=== PATIENT | male | born 1960 | race Caucasian/White ===

== ENCOUNTER 2018-02-09 10:15 | Emergency (ER) | payer MEDICARE, OTHER ==
--- NOTE | 2018-02-09 12:35 | RAD REPORT ---
EXAM DESCRIPTION: US - Extremity Venous Uni Ltd - 02/09/2018 12:27 pm CLINICAL HISTORY: Swelling;Pain Leg swelling and edema. COMPARISON: No comparisons FINDINGS: Left lower extremity venous system was interrogated with Doppler technique. Normal flow, c ompressibility and augmentation was noted. There is no DVT present. IMPRESSION: No evidence of left lower extremity deep venous thrombosis.
--- NOTE | 2018-02-09 12:45 | RAD REPORT ---
EXAM DESCRIPTION: RAD - Hip Left 2 View - 02/09/2018 12:39 pm CLINICAL HISTORY: PAIN Radiculopathy. COMPARISON: No comparisons FINDINGS: Mild left hip arthritic changes are present. No fracture, dislocation or AVN. IMPRESSION: Mild left hip osteoarthritis.
--- NOTE | 2018-02-09 13:04 | EDPHYS ---
Physician Documentation [facility] Name: Eliu Schuler Age: 57 yrs Sex: Male : 1960 Arrival Date: 02/09/2018 Time: 10:20 Bed 14 Private MD: Glynn Stone ED Physician Aleks Garces HPI: 02/09 12:57 This 57 yrs old Male presents to ER via Ambulatory with complaints of Leg kb Pain. 12:57 The patient presents with pain, that is acute, swelling, tenderness. The complaints kb affect the left leg. Context: The problem was sustained at home, resulted from an unknown cause, the patient can fully bear weight, can ambulate using a cane, Problem is a result from a previous injury: No. Onset: The symptoms/episode began/occurred 2 month(s) ago, and became worse. Modifying factors: The symptoms are alleviated by nothing. the symptoms are aggravated by weight bearing. Associated signs and symptoms: Pertinent positives: calf tenderness, swelling, Pertinent negatives fever, nausea, numbness, rash, tingling, vomiting, warmth, weakness. Treatment prior to arrival includes: no previous treatment. Severity of symptoms: At their worst the symptoms were moderate, in the emergency department the symptoms are unchanged. The patient has not experienced similar symptoms in the past. The patient has not recently seen a physician. Pt reports left leg pain that begins in hip and radiates down to ankle. States pain started approx 2 months ago (end of November) and has gotten worse since then. Denies injury or trauma to that side. Does report slipping and falling onto right side on 12/03 and the pain started shortly after that. Reports he has swelling to left leg intermittently and this morning had calf tenderness. Denies tenderness at this time. Historical: - Allergies: 10:44 No Known Allergies; aj1 - PMHx: 10:44 Bipolar disorder; COPD; aj1 - PSHx: 10:44 ear surgery; Cholecystectomy; aj1 - Immunization history:: Adult Immunizations not up to date. - Social history:: Smoking status: Patient uses tobacco products. - Ebola Screening: : No symptoms or risks identified at this time. ROS: 12:53 Constitutional: Negative for fever, chills, and weight loss, Neck: Negative for injury, kb pain, and swelling, Cardiovascular: Negative for chest pain, palpitations, and edema, Respiratory: Negative for shortness of breath, cough, wheezing, and pleuritic chest pain, Abdomen/GI: Negative for abdominal pain, nausea, vomiting, diarrhea, and constipation, Back: Negative for injury and pain, Skin: Negative for injury, rash, and discoloration, Neuro: Negative for headache, weakness, numbness, tingling, and seizure. 12:53 MS/extremity: Positive for pain, swelling, tenderness, of the left leg. Exam: 12:53 Constitutional: This is a well developed, well nourished patient who is awake, alert, kb and in no acute distress. Head/Face: Normocephalic, atraumatic. Neck: Trachea midline, no thyromegaly or masses palpated, and no cervical lymphadenopathy. Supple, full range of motion without nuchal rigidity, or vertebral point tenderness. No Meningismus. Chest/axilla: Normal chest wall appearance and motion. Nontender with no deformity. No lesions are appreciated. Cardiovascular: Regular rate and rhythm with a normal S1 and S2. No gallops, murmurs, or rubs. Normal PMI, no JVD. No pulse deficits. Respiratory: Lungs have equal breath sounds bilaterally, clear to auscultation and percussion. No rales, rhonchi or wheezes noted. No increased work of breathing, no retractions or nasal flaring. Abdomen/GI: Soft, non-tender, with normal bowel sounds. No distension or tympany. No guarding or rebound. No evidence of tenderness throughout. Skin: Warm, dry with normal turgor. Normal color with no rashes, no lesions, and no evidence of cellulitis. MS/ Extremity: Pulses equal, no cyanosis. Neurovascular intact. Full, normal range of motion. Neuro: Awake and alert, GCS 15, oriented to person, place, time, and situation. Cranial nerves II-XII grossly intact. Motor strength 5/5 in all extremities. Sensory grossly intact. Cerebellar exam normal. Normal gait. Vital Signs: 10:44 BP 114 / 70; Pulse 67; Resp 18; Temp 97.8; Pulse Ox 96% on R/A; Weight 106.59 kg (R); aj1 Height 6 ft. 0 in. (182.88 cm) (R); Pain 10/10; 13:27 BP 120 / 78; Pulse 65; Resp 16 S; Pulse Ox 96% on R/A; Pain 10/10; jl7 10:44 Body Mass Index 31.87 (106.59 kg, 182.88 cm) aj1 MDM: 11:53 Patient medically screened. kb 12:57 Data reviewed: vital signs, nurses notes. Data interpreted: Pulse oximetry: on room air kb is 96 %. Interpretation: normal. Counseling: I had a detailed discussion with the patient and/or guardian regarding: the historical points, exam findings, and any diagnostic results supporting the discharge/admit diagnosis, radiology results, the need for outpatient follow up, a family practitioner, to return to the emergency department if symptoms worsen or persist or if there are any questions or concerns that arise at home. 02/09 12:06 Order name: Hip Left 2 View XRAY; Complete Time: 12:49 kb 02/09 12:06 Order name: US Extremity Venous Unilateral Ltd; Complete Time: 12:39 kb Administered Medications: 13:27 Drug: [place] 10 mg-325 mg 1 tabs Route: PO; jl7 13:30 Follow up: Response: Medication administered at discharge. jl7 Disposition: 16:17 Co-signature as Attending Physician, Aleks Garces MD I agree with the assessment and kdr plan of care. Disposition: 02/09/18 13:04 Discharged to Home. Impression: Sciatica, left side. - Condition is Stable. - Discharge Instructions: Sciatica, [id number], Back Exercises, [id number]. - Prescriptions for Cyclobenzaprine 10 mg Oral Tablet - take 1 tablet by ORAL route every 8 hours As needed; 21 tablet. Diclofenac Sodium 75 mg Oral Tablet, Delayed Release (E.C.) - take 1 tablet by ORAL route 2 times per day As needed; 30 tablet. - Medication Reconciliation Form, Thank You Letter, Antibiotic Education, Prescription Opioid Use form. - Follow up: Emergency Department; When: As needed; Reason: Worsening of condition. Follow up: Private Physician; When: 2 - 3 days; Reason: Recheck today's complaints, Continuance of care, Re-evaluation by your physician. Signatures: Dispatcher [employer] EDConnie Devine, TABBY VELÁSQUEZ-Madeline Freeman RN RN aj1 Aleks Garces MD MD kdr Leal, Jahala RN RN jl7 Corrections: (The following items were deleted from the chart) 13:32 13:04 02/09/2018 13:04 Discharged to Home. Impression: Sciatica, left side. Condition jl7 is Stable. Forms are Medication Reconciliation Form, Thank You Letter, Antibiotic Education, Prescription Opioid Use. Follow up: Emergency Department; When: As needed; Reason: Worsening of condition. Follow up: Private Physician; When: 2 - 3 days; Reason: Recheck today's complaints, Continuance of care, Re-evaluation by your physician. kb
--- NOTE | 2018-02-09 13:04 | ER ---
Nurse's Notes [facility] Name: Eliu Schuler Age: 57 yrs Sex: Male : 1960 Arrival Date: 02/09/2018 Time: 10:20 Bed 14 Private MD: Glynn Stone Diagnosis: Sciatica, left side Presentation: 02/09 10:40 Presenting complaint: Patient states: Reports left hip pain that radiates down his left aj1 leg and to his left buttock for the past 2 weeks. Denies fall or injury to the left hip. Transition of care: patient was not received from another setting of care. Onset of symptoms was January 2018. Risk Assessment: Do you want to hurt yourself or someone else? Patient reports no desire to harm self or others. Initial Sepsis Screen: Does the patient meet any 2 criteria? No. Patient's initial sepsis screen is negative. Does the patient have a suspected source of infection? No. Patient's initial sepsis screen is negative. Care prior to arrival: None. 10:40 Method Of Arrival: Ambulatory aj1 10:40 Acuity: ROMEL 4 aj1 Triage Assessment: 10:44 General: Appears in no apparent distress. uncomfortable, Behavior is calm, cooperative, aj1 appropriate for age. Pain: Complains of pain in left hip Pain radiates to buttocks and left leg Pain currently is 10 out of 10 on a pain scale. Neuro: Level of Consciousness is awake, alert, obeys commands. Cardiovascular: Patient's skin is warm and dry. Respiratory: Airway is patent Respiratory effort is even, unlabored, Respiratory pattern is regular, symmetrical. Historical: - Allergies: 10:44 No Known Allergies; aj1 - PMHx: 10:44 Bipolar disorder; COPD; aj1 - PSHx: 10:44 ear surgery; Cholecystectomy; aj1 - Immunization history:: Adult Immunizations not up to date. - Social history:: Smoking status: Patient uses tobacco products. - Ebola Screening: : No symptoms or risks identified at this time. Screenin:30 Abuse screen: Denies threats or abuse. Denies injuries from another. Nutritional jl7 screening: No deficits noted. Tuberculosis screening: No symptoms or risk factors identified. Fall Risk None identified. Assessment: 12:30 General: Appears in no apparent distress. uncomfortable, Behavior is calm, cooperative, jl7 appropriate for age. Pain: Complains of pain in left leg and left hip Pain currently is 10 out of 10 on a pain scale. Neuro: Level of Consciousness is awake, alert, obeys commands, Oriented to person, place, time, situation. Cardiovascular: Patient's skin is warm and dry. Respiratory: Airway is patent Respiratory effort is even, unlabored, Respiratory pattern is regular, symmetrical. Derm: Skin is pink, warm \T\ dry. Musculoskeletal: Range of motion: limited in left hip and left knee. Vital Signs: 10:44 BP 114 / 70; Pulse 67; Resp 18; Temp 97.8; Pulse Ox 96% on R/A; Weight 106.59 kg (R); aj1 Height 6 ft. 0 in. (182.88 cm) (R); Pain 10/10; 13:27 BP 120 / 78; Pulse 65; Resp 16 S; Pulse Ox 96% on R/A; Pain 10/10; jl7 10:44 Body Mass Index 31.87 (106.59 kg, 182.88 cm) aj1 ED Course: 10:20 Patient arrived in ED. mr 10:20 Glynn Stone DO is Private Physician. mr 10:42 Triage completed. aj1 10:44 Arm band placed on Patient placed in waiting room, Patient notified of wait time. aj1 11:53 Connie Michael FNP-C [facility]. kb 11:53 Aleks Garces MD is Attending Physician. kb 12:17 Patient taken to ultrasound. aa4 12:22 US Extremity Venous Unilateral Ltd In Process Unspecified. EDMS 12:30 Ultrasound completed. Patient tolerated well. Patient moved to radiology via wheelchair.aa4 12:30 Patient has correct armband on for positive identification. Placed in gown. Bed in low jl7 position. Call light in reach. Side rails up X 1. Pulse ox on. NIBP on. 12:31 Yadiel Kirby RN is Primary Nurse. jl7 12:37 X-ray completed. Patient tolerated procedure well. Patient moved back from radiology. ls3 12:38 Hip Left 2 View XRAY In Process Unspecified. EDMS 13:30 No provider procedures requiring assistance completed. Patient did not have IV access jl7 during this emergency room visit. Administered Medications: 13:27 Drug: [place] 10 mg-325 mg 1 tabs Route: PO; jl7 13:30 Follow up: Response: Medication administered at discharge. jl7 Outcome: 13:04 Discharge ordered by MD. pope 13:30 Discharged to home ambulatory. jl7 13:30 Condition: stable 13:30 Discharge instructions given to patient, Instructed on discharge instructions, follow up and referral plans. medication usage, Demonstrated understanding of instructions, follow-up care, medications. 13:32 Patient left the ED. jl7 Signatures: Dispatcher [employer] EDMS Connie Michael, LINEN ROOM CUSTODIAN-C LINEN ROOM CUSTODIAN-CkMadeline Francis, RN RN aj1 Marissa De León mr Puja Puri aa4 Yadiel Kirby RN RN jl7 Brandy Dennison ls3
[2018-02-09] MEDS ORDERED: HYDROCODONE/APAP 10/325 TAB ONE (13:31)
[2018-02-09 13:49] VITALS: TEMP 97.8; O2SAT 96
[2018-02-09 13:50] VITALS: BP 120/78
== END 2018-02-09 13:32 | disposition home or self-care (01) ==
LOC: ER 10:15
DX: M54.32 Sciatica, left side (principal); M16.12 Unilateral primary osteoarthritis, left hip; Z72.0 Tobacco use
CPT/HCPCS: 93971; 99284

== ENCOUNTER 2020-01-04 19:52 | Emergency (ER) | payer OTHER ==
--- OUTSIDE RECORDS SUMMARY | 2020-01-04 19:55 | XMS REPORT | Continuity of Care Document ---
:1960 Author Organization [facility] t Address [facility]3 [address] [place] [address] Care Team Providers Name Role Phone Jas Young Attending Clinician Problems Condition Condition Condition Status Onset Resolution Last Treating Co mments Source Name Details Category Date Date Treatment Clinician Date Major Major Problem Active [facility] depressive Depressive 4-19 Fa ranjeet disorder Disorder 00:00: Practi c 00 e Seasonal Seasonal Problem Active [place] ge allergy Allergy 4-19 Family 00:00: Practic 00 e Bipolar Bipolar Problem Active [place] disorder Disorder 4-15 Family 00:00: Practic 00 e Insomnia Insomnia Problem Active [place] ge 1- Family 00:00: Practic 00 e Essential Essential Problem Active Leila sam hypertensi Hypertensi 1- Fa ranjeet on on 00:00: Practic 00 e Peripheral Peripheral Problem Active [facility] vascular Vascular 1- Family disease Disease 00:00: Practic 00 e Chronic Chronic Problem Active [facility] obstructiv Obstructiv 1- Fa ranjeet e lung e Lung 00:00: Practic disease Disease 00 e Gastroesop Gastroesop Problem Active [facility] hageal hageal 1- Family reflux Reflux 00:00: Practic disease Disease 00 e Benign Benign Problem Active [facility] prostatic Prostatic 1- Fami ly hyperplasi Hyperplasi 00:00: Pr actic a a 00 e Chronic Chronic Problem Active 2019-0 [facility] back pain Back Pain 02-15 Fami ly 00:00: Practic 00 e Abnormal Problem Active 2019-05-05 Mem oria breathing 22:14:01 l (finding) Abnormal Her rudolph breathing (finding) Active Problem 05/05/2019 [facility] Cough Problem Active 2019-05-05 Memor ia (finding) 22:14:01 l Cough Erwin (finding) Active Problem 05/05/2019 [facility] Hyperlipid Problem Active 2019-05-05 M emoria emia 22:14:01 l (disorder) Richard n Hyperlipid emia (disorder) Active Problem 05/05/2019 [facility] Hypertensi Problem Active 2019-05-05 M emoria ve 22:14:01 l disorder, Frank systemic Hypertensi arterial ve (disorder) disorder, systemic arterial (disorder) Active Problem 05/05/2019 [facility] Lumbar Problem Active 2019-05-05 Memor ia radiculopa 22:14:01 l thy Lumbar Erwin (disorder) radiculopa thy (disorder) Active Problem 05/05/2019 [facility] Morbid Problem Active 2019-05-05 Memor ia obesity 22:14:01 l (disorder) Morbid Herm zofia obesity (disorder) Active Problem 05/05/2019 [facility] Neuropathy Problem Active 2019-05-05 M emoria of lower 22:14:01 l limb Frank (disorder) Neuropathy of lower limb (disorder) Active Problem 05/05/2019 [facility] Allergies, Adverse Reactions, Alerts Allergy Allergy Status Severity Reaction(s) Onset Inactive Treating Comm ents Source Name Type Date Date Clinician No Known No Known Active Memori a Medicati Medicati l on on Frank Allergrossi Allergrossi s s Social History Social Habit Start Date Stop Date Quantity Comments Source Social History 2018-11-17 2018-11-17 [facility] Yared garciazofia 15:32:05 15:32:05 Smoking Status Start Date Stop Date Source Light Tobacco Smoker [facility] Medications Ordered Filled Start Stop Current Ordering Indication Dosage Frequency Signature Comments Components Source Medication Medication Date Date Medication? Clinician (SIG) Name Name baclofen 2018-02 Yes 10 mg = 1 M emoria mg oral 2-16 tab, PO, l tablet 15:05: BID, # 60 Richard n 00 tab, 2 Refill(s), Pharmacy: [facility] 482 gabapentin 2018-02 Yes 600 mg = 1 M emoria 600 MG Oral 0-03 tab, PO, l Tablet 15:38: TID, # 90 Richard n 00 tab, 3 Refill(s), Pharmacy: [facility] 482 Omeprazole 2018-02 Yes 20 mg, PO, M emoria 0-03 Daily, 0 l 14:34: Refill(s) Frank 00 Trazodone 2018-02 Yes 100 mg, Memor ia 0-03 PO, l 14:34: Bedtime, 0 Frank 00 Refill(s) lamotrigine 2018-02 Yes 200 mg, Mem oria 0-03 PO, 0 l 14:34: Refill(s) fluticasone 2018-02 Yes 50 Memori a propionate 0-03 microgram, l 14:34: NASAL, Frank 00 Daily, 0 Refill(s) Lisinopril 2018-02 Yes 10 mg, PO, M emoria 0-03 Daily, 0 l 14:34: Refill(s) metoprolol 2018-02 Yes 50 mg, PO, M emoria tartrate 0-03 Daily, 0 l 14:34: Refill(s) Cetirizine 2018-02 Yes 10 mg, PO, M emoria 0-03 Daily, 0 l 14:34: Refill(s) albuterol 2018-02 Yes 2 puff, Memor ia 90 mcg/inh 0-03 INHALATION l inhalation 14:34: , Q6H, 0 Her rudolph aerosol 00 Refill(s) gabapentin 2018-02 No 300 mg, Apollo mihir 0-03 PO, TID, 0 l 14:34: Refill(s) Azelastine 2018-02 Yes 2 spray, Mem oria hydrochlori 0-03 NASAL, BID l de 0.137 14:34: Erwin MG/ACTUAT / 00 Fluticasone propionate 0.05 MG/ACTUAT Metered Dose Nasal [place] tiotropium 2018-02 Yes 18 Memoria 0-03 microgram, l 14:34: INHALATION Frank , Daily, 0 Refill(s) carboxymeth 2018-02 Yes 1 appl, Mem oria ylcellulose 0-03 BOTH EYES, l -sodium 14:34: QID, 0 Frank hyaluronate 00 Refill(s) topical film Diclofenac 2018-02 Yes 75 mg, PO, M emoria 0-03 PRN, 0 l 14:34: Refill(s) Budesonide 2018-02 Yes 2 puff, Apollo mihir 0.08 0-03 INHALATION l MG/ACTUAT / 14:34: , BID, 0 He rmann formoterol 00 Refill(s) fumarate 0.0045 MG/ACTUAT Metered Dose Inhaler albuterol albuterol No 2puff(s Q4H albuterol [facility] sulf 90 sulf 90 ) sulf 90 Family mcg/actuati mcg/actuati mcg/actuat Practic on breath on breath ion breath e activated activated activated powder powder powder inhaler,sen inhaler,sen inhaler,se sor Inhale sor Inhale nsor 2 puffs 2 puffs Inhale 2 every 4 every 4 puffs hours by hours by every 4 inhalation inhalation hours by route. route. inhalation route. azelastine azelastine No 2spray( BID azelastine [facility] 137 mcg 137 mcg s) 137 mcg Family (0.1 %) (0.1 %) (0.1 %) Practi c nasal spray nasal spray nasal e aerosol aerosol spray [place] 2 [place] 2 aerosol sprays sprays [place] 2 twice a day twice a day sprays by by twice a intranasal intranasal day by route. route. intranasal route. budesonide budesonide No 1puff(s BID budesonide [facility] 180 180 ) 180 Family mcg/actuati mcg/actuati mcg/actuat Practic on breath on breath ion breath e activated activated activated powder powder powder inhaler inhaler inhaler Inhale 1 Inhale 1 Inhale 1 puff twice puff twice puff twice a day by a day by a day by inhalation inhalation inhalation route. route. route. carboxymeth carboxymeth No carboxymet [facility] yl 0.5 yl 0.5 hyl 0.5 Family %-glycerin %-glycerin %-glycerin Practic 1 1 1 e %-polysorb %-polysorb %-polysorb 80 0.5 %-PF 80 0.5 %-PF 80 0.5 eye eye %-PF eye dropperette dropperette dropperett 2 drop bid 2 drop bid e 2 drop bid cetirizine cetirizine No 1mg Q1D cetirizine [facility] 10 mg 10 mg 10 mg Family capsule capsule capsule Practi c Take 1 mg Take 1 mg Take 1 mg e every day every day every day by oral by oral by oral route. route. route. gabapentin gabapentin No 1capsul TID gabapentin [facility] 300 mg 300 mg e(s) 300 mg Family capsule capsule capsule Practi c Take 1 Take 1 Take 1 e capsule 3 capsule 3 capsule 3 times a day times a day times a by oral by oral day by route. route. oral route. lamotrigine lamotrigine No 1 BID lamotrigin [facility] 200 mg 200 mg e 200 mg Family tablet Take tablet Take tablet Practic 1 tablet 1 tablet Take 1 e twice a day twice a day tablet by oral by oral twice a route. route. day by oral route. lisinopril lisinopril No 1 Q1D lisinopril [facility] 10 mg 10 mg 10 mg Family tablet Take tablet Take tablet Practic 1 tablet 1 tablet Take 1 e every day every day tablet by oral by oral every day route. route. by oral route. metoprolol metoprolol No 1 BID metoprolol [facility] tartrate 25 tartrate 25 tartrate Family mg tablet mg tablet 25 mg Prac tic Take 1 Take 1 tablet e tablet tablet Take 1 twice a day twice a day tablet by oral by oral twice a route. route. day by oral route. omeprazole omeprazole No 1capsul BID omeprazole [facility] 20 mg 20 mg e(s) 20 mg Family capsule,del capsule,del capsule,de Practic ayed ayed layed e release release release Take 1 Take 1 Take 1 capsule capsule capsule twice a day twice a day twice a by oral by oral day by route. route. oral route. tiotropium tiotropium No 2puff(s Q1D tiotropium [facility] 2.5 2.5 ) 2.5 Family mcg-olodate mcg-olodate mcg-olodat Practic rol 2.5 rol 2.5 marla 2.5 e mcg/actuati mcg/actuati mcg/actuat on mist for on mist for ion mist inhalation inhalation for Inhale 2 Inhale 2 inhalation puffs every puffs every Inhale 2 day by day by puffs inhalation inhalation every day route. route. by inhalation route. trazodone trazodone No 1 Q1D trazodone [facility] 100 mg 100 mg 100 mg Family tablet Take tablet Take tablet Practic 1 tablet 1 tablet Take 1 e every day every day tablet by oral by oral every day route. route. by oral route. Immunizations Ordered Immunization Filled Immunization Date Status Commen ts Source Name Name influenza, influenza, 2019-11-16 Completed [facility] Family injectable, injectable, 00:00:00 Practice quadrivalent quadrivalent Vital Signs Vital Name Observation Time Observation Value Comments Source Height 2019-05-31 00:00:00 71 [in_i] [facility] BMI (Body Mass 2019-05-31 00:00:00 6.4 kg/m2 Villag e Family Index) Practice Body Weight 2019-05-31 00:00:00 46 [lb_av] [facility] Systolic (mm Hg) 2019-02-01 22:41:00 Apollo rial Frank Diastolic (mm Hg) 2019-02-01 22:41:00 Mem orial Frank Heart Rate 2019-02-01 22:41:00 [facility] Frank Respitory Rate 2019-02-01 22:41:00 Memori al Erwin Height 2019-02-01 22:41:00 175.26 cm [facility] Weight 2019-02-01 22:41:00 [facility] BMI Calculated 2019-02-01 22:41:00 Memori al Frank Systolic (mm Hg) 2018-12-21 21:00:00 Apollo rial Erwin Diastolic (mm Hg) 2018-12-21 21:00:00 Mem orial Frank Heart Rate 2018-12-21 21:00:00 [facility] Frank Height 2018-12-21 21:00:00 177.8 cm [facility] Weight 2018-12-21 21:00:00 [facility] Frank BMI Calculated 2018-12-21 21:00:00 Memori al Erwin Systolic (mm Hg) 2018-11-17 14:29:00 Apollo rial Erwin Diastolic (mm Hg) 2018-11-17 14:29:00 Mem orial Erwin Heart Rate 2018-11-17 14:29:00 [facility]win Respitory Rate 2018-11-17 14:29:00 Memori al Frank Height 2018-11-17 14:29:00 172.72 cm [facility] Frank Weight 2018-11-17 14:29:00 [facility] Erwin BMI Calculated 2018-11-17 14:29:00 Memori al Frank Procedures Procedure Date / Time Performed Performing Clinician Sourc e Lumbar Spine Fusion [facility] ly Practice Cholecystectomy [facility]win Cystectomy [facility] Ear implantation [facility] Richard n Plan of Care Planned Activity Planned Date Details Comments Source Instructions [facility] Encounters Start End Encounter Admission Attending Care Care Encounter Source Date/Time Date/Time Type Type Clinicians Facility Department ID 2019-05-31 2019-05-31 Jaja [facility] [place] - [id number] [facility] 00:00:00 00:00:00 Nicholas-Ashtyn [facility] mana 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 2019-05-03 2019-05-03 [id number] 15:45:00 15:45:00 Efren Jas 2019-02-01 2019-02-01 [facility] [id number] 16:15:00 23:59:59 Efren Jas 2018-12-21 2018-12-21 [facility] [id number] 15:00:00 23:59:59 Efren Jas 2018-11-17 2018-11-17 [facility] [id number] 09:45:00 23:59:59 Efren 00 Jas Results This patient has no known results.
--- OUTSIDE RECORDS SUMMARY | 2020-01-04 19:55 | XMS REPORT | Continuity of Care Document ---
:1960 Author Organization [facility] Care Team Providers Name Role Phone [facility] Unavailable Un available Problems Problem Status Onset Classification Date Comments Sourc e Date Reported Abnormal breathing Active Problem 05/05/2019 [facility] (finding) Neuro Bipolar disorder Active Problem 05/05/2019 Mi shahnaz (disorder) Neuro Cough (finding) Active Problem 05/05/2019 Mis christen Neuro Hyperlipidemia Active Problem 05/05/2019 Misc her (disorder) Neuro Hypertensive Active Problem 05/05/2019 Mische r disorder, systemic N euro arterial (disorder) Lumbar Active Problem 05/05/2019 [facility] radiculopathy Neuro (disorder) Morbid obesity Active Problem 05/05/2019 Misc her (disorder) Neuro 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 Neuro (disorder) Medications Medication Details Route Status Patient Ordering Order Source Instructions Provider Date baclofen 10 mg 10 mg = 1 Active [facility]ischer oral tablet tab, PO, 019 Neuro BID, # 60 tab, 2 Refill(s), Pharmacy: [facility] 482 gabapentin 600 600 mg = 1 Active Mische r MG Oral Tablet tab, PO, 019 Neuro TID, # 90 tab, 3 Refill(s), Pharmacy: [facility] 482 Omeprazole 20 mg, PO, Active [facility]ischer Daily, 0 019 Neuro Refill(s) Trazodone 100 mg, PO, Active [facility] Bedtime, 0 019 Neuro Refill(s) lamotrigine 200 mg, PO, Active [facility]ischer 0 Refill(s) 019 Neuro fluticasone 50 Active [facility] propionate microgram, 019 Neuro NASAL, Daily, 0 Refill(s) Lisinopril 10 mg, PO, Active Mischer Daily, 0 019 Neuro Refill(s) metoprolol 50 mg, PO, Active [facility] tartrate Daily, 0 019 Neuro Refill(s) Cetirizine 10 mg, PO, Active Mischer Daily, 0 019 Neuro Refill(s) albuterol 90 2 puff, Active [facility]ischer mcg/inh INHALATION, 019 Neuro inhalation Q6H, 0 aerosol Refill(s) gabapentin 300 mg, PO, Inactive [facility]ischer TID, 0 019 Neuro Refill(s) Azelastine 2 spray, Active [facility] hydrochloride NASAL, BID 019 Neuro 0.137 MG/ACTUAT / Fluticasone propionate 0.05 MG/ACTUAT Metered Dose Nasal [place] tiotropium 18 Active [facility]ischer microgram, 019 Neuro INHALATION, Daily, 0 Refill(s) carboxymethylcel 1 appl, Active [facility]ischer lulose-sodium BOTH EYES, 019 Neuro hyaluronate QID, 0 topical film Refill(s) Diclofenac 75 mg, PO, Active [facility]ischer PRN, 0 019 Neuro Refill(s) Budesonide 0.08 2 puff, Active [facility]ischer MG/ACTUAT / INHALATION, 019 Neuro formoterol BID, 0 fumarate 0.0045 Refill(s) MG/ACTUAT Metered Dose Inhaler Allergies, Adverse Reactions, Alerts Substance Category Reaction Severity Reaction Status Date Comments S ource type Reported No Known Assertion Drug Misch er Medication allergy Neuro Allergies Immunizations No Data Provided for This Section Results No Data Provided for This Section Pathology Reports No Data Provided for This Section Diagnostic Reports No Data Provided for This Section Consultation Notes No Data Provided for This Section Discharge Summaries No Data Provided for This Section History and Physicals No Data Provided for This Section Vital Signs Vital Sign Value Date Comments Source Systolic (mm Hg) 144 02/01/2019 [facility] Yeny ro Diastolic (mm Hg) 76 02/01/2019 [facility] Ne uro [facility] 16 02/01[facility]2019 [facility] Neuro Height 175.26 cm [facility]/01[facility] Weight 105 02/01/2019 [facility] Neuro BMI Calculated 34.18 02/01/2019 [facility] Systolic (mm Hg) 150 12/21/2018 [facility] Yeny ro Diastolic (mm Hg) 80 12/21/[facility] Heart Rate 86 12/21/2018 [facility] Neuro Height 177.8 cm 12/21/2018 [facility] Neuro Weight 109.091 12/21/2018 [facility] Neuro BMI Calculated 34.51 12/21/2018 [facility] Neuro Systolic (mm Hg) 143 11/17/2018 [facility] Yeny ro Diastolic (mm Hg) 94 11/17/2018 [facility] Ne uro Heart Rate 69 11/17/2018 [facility] Neuro Respitory Rate 16 11/17/2018 [facility] Neuro Height 172.72 cm 11/17/2018 [facility] Neuro Weight 109.091 11/17/2018 [facility] Neuro BMI Calculated 36.57 11/17/2018 [facility] Neuro Encounters Location Location Encounter Encounter Reason Attending ADM CT Stat us Source Details Type Number For Provider Date Date Visit Outpatient [id number] Efren 11/17 [facility] Outpatient [id number] Efren 11/17 11/18 [facility] Neurology [facility] Outpatient [id number] Efren 12/21 [facility] Outpatient [id number] Efren 12/21 12/22 [facility] Neurology [facility] Outpatient [id number] Efren 02/01 Active [facility] Frank MNA Outpatient [id number] Efren 02/01 02/02 [facility] Neurology [facility] Outpatient [id number] Efren 05/02 [facility] Ambulatory [id number] Efren 05/02 05/02 [facility] Neurology Pre-Reg [facility] Neuro [facility] Procedures Procedure Code Date Perfomer Comments Source Cholecystectomy [id number] [facility] Neuro Cystectomy [id number] [facility] Neuro Ear implantation [id number] [facility] Neuro Assessment and Plan No Data Provided for This Section Plan of Care No Data Provided for This Section Social History Social History Date Source Social History TypeResponse 11/17/2018 [facility] Neur o Employment/School Status: disabled, bipolar.1 Substance Abuse Use: Current. Type: Marijuana.2 Smoking Status Current every day smoker; Type: Cigarett es; Exposure to Tobacco Smoke Unable to obtain; Cigarette Smoking Last 365 Days Unable to obtain; Reg Smoking Cessation Counseling No; Other Tobacco Frequency 2pks aday; entered on: 02/01/19 1Can release medical information to- Spo use-Susan Larsen and PCP-Dr. [email or web address] with pain Family History No Data Provided for This Section Advance Directives No Data Provided for This Section Functional Status No Data Provided for This Section
--- NOTE | 2020-01-04 20:48 | ER ---
Nurse's Notes [facility] Name: Eliu Schuler Age: 59 yrs Sex: Male : 1960 Arrival Date: 01/04/2020 Time: 19:56 Bed 30 Private MD: Diagnosis: Olecranon bursitis, right elbow Presentation: 01/03 20:27 Chief complaint: Patient states: bumped elbow about 3 months ago and was told it was dm5 sprained. Pt states a bump appeared on right elbow afterward and has been getting bigger ever since. Denies fever but pain when weight bearing and movement. Coronavirus screen: Client denies travel out of the [place] in the last 14 days. At this time, the client does not indicate any symptoms associated with coronavirus-19. Ebola Screen: Patient negative for fever greater than or equal to 101.5 degrees Fahrenheit, and additional compatible Ebola Virus Disease symptoms Patient denies exposure to infectious person. Patient denies travel to an Ebola-affected area in the 21 days before illness onset. No symptoms or risks identified at this time. Initial Sepsis Screen: Does the patient meet any 2 criteria? No. Patient's initial sepsis screen is negative. Does the patient have a suspected source of infection? Yes: Other: knot of unknown origin on right elbow. Risk Assessment: Do you want to hurt yourself or someone else? Patient reports no desire to harm self or others. Onset of symptoms was September 2019. 20:27 Method Of Arrival: Ambulatory dm5 20:27 Acuity: ROMEL 3 dm5 Triage Assessment: 21:10 Injury Description:. sg Historical: - Allergies: 20:36 No Known Allergies; dm5 - Home Meds: 20:36 omeprazole 20 mg Oral cpDR 2 caps once daily [Active]; trazodone 100 mg Oral tab 2 tabs dm5 nightly [Active]; lamotrigine 200 mg oral tab 0.5 tab once daily [Active]; lisinopril 10 mg Oral tab 1 tab once daily [Active]; metoprolol tartrate 25 mg Oral tab 1 tab 2 times per day [Active]; cetirizine 10 mg oral tab 1 tab once daily [Active]; albuterol sulfate 90 mcg/actuation Inh HFAA [Active]; gabapentin 300 mg oral cap 1 cap 3 times per day [Active]; azelastine 137 mcg (0.1 %) nasal spra [Active]; tiotropium bromide inhalation inhalation [Active]; carboxymethylcellulose miscellaneous [Active]; diclofenac sodium 75 mg oral TbEC 1 tab [Active]; budesonide 0.25 mg/2 mL inhalation nbsp [Active]; fluticasone 50 mcg/actuation nasal spsn [Active]; - PMHx: 20:36 Bipolar disorder; COPD; GERD; Hypertension; dm5 - Immunization history:: Adult Immunizations up to date. - Social history:: Smoking status: Patient/guardian denies using tobacco. Screenin:48 Abuse screen: Denies threats or abuse. Denies injuries from another. Nutritional aj1 screening: No deficits noted. Tuberculosis screening: No symptoms or risk factors identified. 21:19 Fall Risk None identified. sg Assessment: 20:48 General: Appears in no apparent distress. comfortable, Behavior is calm, cooperative, aj1 appropriate for age. Pain: Complains of pain in right elbow. Neuro: Level of Consciousness is awake, alert, obeys commands, Oriented to person, place, time, situation. Cardiovascular: Patient's skin is warm and dry. Respiratory: Airway is patent Respiratory effort is even, unlabored, Respiratory pattern is regular, symmetrical. GI: No signs and/or symptoms were reported involving the gastrointestinal system. : No signs and/or symptoms were reported regarding the genitourinary system. EENT: No signs and/or symptoms were reported regarding the EENT system. Derm: No signs and/or symptoms reported regarding the dermatologic system. Skin is pink, warm \T\ dry. normal. Musculoskeletal: Swelling present in right elbow. Vital Signs: 20:27 BP 151 / 89; Pulse 97; Resp 18; Temp 98.2; Pulse Ox 97% on R/A; Weight 104.33 kg; dm5 Height 5 ft. 11 in. (180.34 cm); Pain 8/10; 20:27 Body Mass Index 32.08 (104.33 kg, 180.34 cm) 5 ED Course: 19:56 Patient arrived in ED. ag3 20:29 Triage completed. [facility] 20:35 Killian Alvarado PA is PHCP. [facility] 20:35 Santosh Orozco MD is Attending Physician. [facility] 20:48 Madeline Meadows, RN is Primary Nurse. aj1 20:48 Tima Stephen MD is Referral Physician. [facility] 20:48 Patient has correct armband on for positive identification. Bed in low position. Call aj1 light in reach. Side rails up X 1. 20:48 Arm band placed on. sg 20:48 No provider procedures requiring assistance completed. aj1 21:10 Patient did not have IV access during this emergency room visit. sg Administered Medications: 21:04 Drug: Decadron 10 mg Route: IM; Site: right deltoid; aj1 Outcome: 20:48 Discharge ordered by . [facility] 21:10 Discharged to home ambulatory, with family. sg 21:10 Condition: good 21:10 Discharge instructions given to patient, family, Instructed on discharge instructions, follow up and referral plans. no drinking with medication, no driving heavy equipment, safety practices, Demonstrated understanding of instructions, follow-up care, medications, Prescriptions given X 2. 21:14 Patient left the ED. Signatures: Madeline Meadows, RN RN aj Nataliia aJde RN RN delisa5 Jose David Justice RN RN sg Killian Alvarado PA PA Alysia Camacho3
--- NOTE | 2020-01-04 20:48 | EDPHYS ---
Physician Documentation [facility] Name: Eliu Schuler Age: 59 yrs Sex: Male : 1960 Arrival Date: 01/04/2020 Time: 19:56 Bed 30 Private MD: ED Physician Santosh Orozco HPI: 01/03 20:44 This 59 yrs old Male presents to ER via Ambulatory with complaints of Elbow jmm Injury. 20:44 The patient or guardian complains of pain, that is chronic. Onset: The symptoms/episode jmm began/occurred gradually, 3 month(s) ago. Modifying factors: The symptoms are alleviated by nothing. the symptoms are aggravated by movement. This is a 59 year old male with a history of COPD, GERD, HTN that presents to the ED with complaints of swelling to the right elbow. Worsned approx 1 month ago. Patient denies fever. . Historical: - Allergies: 20:36 No Known Allergies; dm5 - Home Meds: 20:36 omeprazole 20 mg Oral cpDR 2 caps once daily [Active]; trazodone 100 mg Oral tab 2 tabs dm5 nightly [Active]; lamotrigine 200 mg oral tab 0.5 tab once daily [Active]; lisinopril 10 mg Oral tab 1 tab once daily [Active]; metoprolol tartrate 25 mg Oral tab 1 tab 2 times per day [Active]; cetirizine 10 mg oral tab 1 tab once daily [Active]; albuterol sulfate 90 mcg/actuation Inhl HFAA [Active]; gabapentin 300 mg oral cap 1 cap 3 times per day [Active]; azelastine 137 mcg (0.1 %) nasal spra [Active]; tiotropium bromide inhalation inhalation [Active]; carboxymethylcellulose miscellaneous [Active]; diclofenac sodium 75 mg oral TbEC 1 tab [Active]; budesonide 0.25 mg/2 mL inhalation nbsp [Active]; fluticasone 50 mcg/actuation nasal spsn [Active]; - PMHx: 20:36 Bipolar disorder; COPD; GERD; Hypertension; dm5 - Immunization history:: Adult Immunizations up to date. - Social history:: Smoking status: Patient/guardian denies using tobacco. ROS: 20:44 Constitutional: Negative for fever, chills, and weight loss, Cardiovascular: Negative [facility] for chest pain, palpitations, and edema, Respiratory: Negative for shortness of breath, cough, wheezing, and pleuritic chest pain. 20:44 MS/extremity: Positive for pain. 20:44 All other systems are negative. Exam: 20:44 Constitutional: This is a well developed, well nourished patient who is awake, alert, jmm and in no acute distress. Head/Face: atraumatic. Eyes: EOMI, no conjunctival erythema appreciated ENT: Moist Mucus Membranes Neck: Trachea midline, Supple Chest/axilla: Normal chest wall appearance and motion. Cardiovascular: Regular rate and rhythm. No edema appreciated Respiratory: Normal respirations, no respiratory distress appreciated Abdomen/GI: Non distended, soft Skin: General appearance color normal 20:44 Musculoskeletal/extremity: swelling noted to the right elbow, appears consistent with olecranon bursitis. 20:44 Skin: Appearance: Color: normal in color. 20:44 Neuro: Orientation: is normal, Mentation: is normal, Memory: is normal. 20:44 Psych: Behavior/mood is pleasant, cooperative. Vital Signs: 20:27 BP 151 / 89; Pulse 97; Resp 18; Temp 98.2; Pulse Ox 97% on R/A; Weight 104.33 kg; dm5 Height 5 ft. 11 in. (180.34 cm); Pain 8/10; 20:27 Body Mass Index 32.08 (104.33 kg, 180.34 cm) dm5 MDM: 20:37 Patient medically screened. [facility] 20:47 Data reviewed: vital signs, nurses notes. Counseling: I had a detailed discussion with [facility] the patient and/or guardian regarding: the historical points, exam findings, and any diagnostic results supporting the discharge/admit diagnosis, the need for outpatient follow up, to return to the emergency department if symptoms worsen or persist or if there are any questions or concerns that arise at home. ED course: PE findings consistent with olecranon bursitis. Patient advised to follow up with ortho for further evaluation. patient otherwise given strict return precautions. Patient understood and agrees with the plan of care. . Administered Medications: 21:04 Drug: Decadron 10 mg Route: IM; Site: right deltoid; aj1 Disposition: 01/04 00:44 Co-signature as Attending Physician, Santosh Orozco MD. pkl Disposition: 01/04/20 20:48 Discharged to Home. Impression: Olecranon bursitis, right elbow. - Condition is Stable. - Discharge Instructions: Elbow Bursitis. - Prescriptions for Ibuprofen 800 mg Oral Tablet - take 1 tablet by ORAL route every 12 hours As needed take with food; 20 tablet. orphenadrine citrate 100 mg Oral Tablet Sustained Release - take 1 tablet by ORAL route 2 times per day As needed; 20 tablet. - Medication Reconciliation Form, Thank You Letter, Antibiotic Education, Prescription Opioid Use form. - Follow up: Tima Stephen MD; When: 2 - 3 days; Reason: Recheck today's complaints, Continuance of care, Re-evaluation by your physician. Signatures: Madeline Meadows RN RN aj1 Nataliia Jade RN RN dm5 Jose David Justice RN Santosh Benoit MD MD pkKillian Jean Baptiste PA PA jmm Corrections: (The following items were deleted from the chart) 01/03 21:14 20:48 01/04/2020 20:48 Discharged to Home. Impression: Olecranon bursitis, right elbow. sg Condition is Stable. Forms are Medication Reconciliation Form, Thank You Letter, Antibiotic Education, Prescription Opioid Use. Follow up: Tima Stephen; When: 2 - 3 days; Reason: Recheck today's complaints, Continuance of care, Re-evaluation by your physician. cameron
[2020-01-04] MEDS ORDERED: dexAMETHasone 10 MG/ML VIAL ONE (21:15)
[2020-01-05 14:57] VITALS: BP 151/89; TEMP 98.2; O2SAT 97
== END 2020-01-04 21:14 | disposition home or self-care (01) ==
LOC: ER 19:52
DX: M70.21 Olecranon bursitis, right elbow (principal); I10 Essential (primary) hypertension; J44.9 Chronic obstructive pulmonary disease, unspecified; F31.9 Bipolar disorder, unspecified
CPT/HCPCS: 96372; 99283; J1100

== ENCOUNTER 2020-04-08 13:07 | Inpatient (IN) | payer OTHER ==
--- OUTSIDE RECORDS SUMMARY | 2020-04-08 13:11 | XMS REPORT | Continuity of Care Document ---
:1960 Author Organization [facility] t Address [address] [place] [address] [address] [place] [address] Care Team Providers Name Role Phone Jaime Chappell MD Attending Clinician Doctor Unassigned, Name Attending Clinician Unavailable Pob, Lab Main Attending Clinician Unavailable Only, Test Attending Clinician Unavailable Jas Young Attending Clinician Jaime Chappell MD Admitting Clinician Problems Condition Condition Condition Status Onset Resolution Last Treating Co mments Source Name Details Category Date Date Treatment Clinician Date Major Major Problem Active 2020-0 [facility] depressive Depressive 4-19 Fa ranjeet disorder Disorder 00:00: Practi c 00 e Seasonal Seasonal Problem Active 2020-0 [facility] allergy Allergy 4-19 Family 00:00: Practic 00 e Bipolar Bipolar Problem Active 2020-0 [facility] disorder Disorder 4-15 Family 00:00: Practic 00 e Insomnia Insomnia Problem Active 2020-0 [facility] 1- Family 00:00: Practic 00 e Essential Essential Problem Active 2020-0 [facility] hypertensi Hypertensi 1 Fa ranjeet on on 00:00: Practic 00 e Peripheral Peripheral Problem Active 2020-0 [facility] vascular Vascular 1- Family disease Disease 00:00: Practic 00 e Chronic Chronic Problem Active 2020-0 [facility] obstructiv Obstructiv 02-15 Fa ranjeet e lung e Lung 00:00: Practic disease Disease 00 e Gastroesop Gastroesop Problem Active 2020-0 [facility] hageal hageal 1- Family reflux Reflux 00:00: Practic disease Disease 00 e Benign Benign Problem Active 2020-0 [facility] prostatic Prostatic 1 Fami ly hyperplasi Hyperplasi 00:00: Pr actic a a 00 e Chronic Chronic Problem Active 2019- [facility] back pain Back Pain 02-15 Fami ly 00:00: Practic 00 e Abnormal Problem Active 2019-05-05 Mem oria breathing 22:14:01 l (finding) Abnormal Her rudolph breathing (finding) Active Problem 05/05/2019 [facility] Cough Problem Active 2019-05-05 Memor ia (finding) 22:14:01 l Cough [place] (finding) Active Problem 05/05/2019 [facility] Hyperlipid Problem Active 2019-05-05 M emoria emia 22:14:01 l (disorder) Richard n Hyperlipid emia (disorder) Active Problem 05/05/2019 [facility] Hypertensi Problem Active 2019-05-05 M emoria ve 22:14:01 l disorder, Frank systemic Hypertensi arterial ve (disorder) disorder, systemic arterial (disorder) Active Problem 05/05/2019 [facility] Lumbar Problem Active 2019-05-05 Memor ia radiculopa 22:14:01 l thy Lumbar Frank (disorder) radiculopa thy (disorder) Active Problem 05/05/2019 [...] a Medicati Medicati l on on Frank Allergie Allergie s s Social History Social Habit Start Date Stop Date Quantity Comments Source Social History 2018-11-17 2018-11-17 [place] last 15:32:05 15:32:05 Smoking Status Start Date Stop Date Source Light Tobacco Smoker [facility] Practice Medications Ordered Filled Start Stop Current Ordering Indication Dosage Frequency Signature Comments Components Source Medication Medication Date Date Medication? Clinician (SIG) Name Name baclofen 2018-02 Yes 10 mg = 1 M emoria mg oral 2-16 tab, PO, l tablet 15:05: BID, # 60 Richard n 00 tab, 2 Refill(s), Pharmacy: [facility] 482 gabapentin 2018-02 Yes 600 mg = 1 M emoria 600 MG Oral 0-03 tab, PO, l Tablet 15:38: TID, # 90 Richard n 00 tab, 3 Refill(s), Pharmacy: [facility] 482 Trazodone 2018-02 Yes 100 mg, Memor ia 0-03 PO, l 14:34: Bedtime, 0 [place] 00 Refill(s) lamotrigine 2018-02 Yes 200 mg, Mem oria 0-03 PO, 0 l 14:34: Refill(s) fluticasone 2018-02 Yes 50 Memori a propionate 0-03 microgram, l 14:34: NASAL, [place] 00 Daily, 0 Refill(s) Lisinopril 2018-02 Yes [...] 0-03 NASAL, BID l de 0.137 14:34: Frank MG/ACTUAT / 00 Fluticasone propionate 0.05 MG/ACTUAT Metered Dose Nasal [place] tiotropium 2018-02 Yes 18 Memoria 0-03 microgram, l 14:34: INHALATION [place] 00 , Daily, 0 Refill(s) carboxymeth 2018-02 Yes 1 appl, Mem oria ylcellulose 0-03 BOTH EYES, l -sodium 14:34: QID, 0 [place] hyaluronate 00 Refill(s) topical film Diclofenac 2018-02 Yes 75 mg, PO, M emoria 0-03 PRN, 0 l 14:34: Refill(s) Frank 00 Budesonide 2018-02 Yes 2 puff, Apollo mihir 0.08 0-03 INHALATION l MG/ACTUAT / 14:34: , BID, 0 He rmann formoterol 00 Refill(s) fumarate 0.0045 MG/ACTUAT Metered Dose Inhaler Omeprazole 2018-02 Yes 20 mg, PO, M emoria 0-03 Daily, 0 l 14:34: Refill(s) [place] albuterol albuterol No 2puff(s Q4H albuterol [facility] sulf 90 sulf 90 ) sulf [...] route. azelastine azelastine No 2spray( BID azelastine [facility] 137 mcg 137 mcg s) 137 mcg Family (0.1 %) (0.1 %) (0.1 %) Practi c nasal spray nasal spray nasal e aerosol aerosol spray [place] 2 [place] 2 aerosol sprays sprays [place] 2 twice a day twice a day sprays by by twice a intranasal intranasal day by route. route. intranasal route. budesonide budesonide No 1puff(s BID budesonide [facility] 180 180 ) 180 Family mcg/actuati mcg/actuati mcg/actuat Practic on breath on breath ion breath e activated activated activated powder powder powder inhaler inhaler inhaler Inhale 1 Inhale 1 Inhale 1 puff twice puff twice puff twice a day by a day by a day by inhalation inhalation inhalation route. route. route. carboxymeth carboxymeth No carboxymet [place] yl 0.5 yl 0.5 hyl 0.5 Family %-glycerin %-glycerin %-glycerin Practic 1 1 1 e %-polysorb %-polysorb %-polysorb 80 0.5 %-PF 80 0.5 %-PF 80 0.5 eye eye %-PF eye dropperette dropperette dropperett 2 drop bid 2 drop bid e 2 drop bid cetirizine cetirizine No 1mg Q1D cetirizine [facility] 10 mg 10 mg 10 mg Family capsule capsule capsule Practi c Take 1 mg Take 1 mg Take 1 mg e every day every day every day by oral by oral by oral route. route. route. gabapentin gabapentin No 1capsul TID gabapentin [facility] 300 mg 300 mg e(s) 300 mg Family capsule capsule capsule Practi c Take 1 Take 1 Take 1 e capsule 3 capsule 3 capsule 3 times a day times a day times a by oral by oral day by route. route. oral route. lamotrigine lamotrigine No 1 BID lamotrigin [facility] 200 mg 200 mg e 200 mg Family tablet Take tablet Take tablet Practic 1 tablet 1 tablet Take 1 e twice a day twice a day tablet by oral by oral twice a route. route. day by oral route. lisinopril lisinopril No 1 Q1D lisinopril [facility] 10 mg 10 mg 10 mg Family tablet Take tablet Take tablet Practic 1 tablet 1 tablet Take 1 e every day every day tablet by oral by oral every day route. route. by oral route. metoprolol metoprolol No 1 BID metoprolol [facility] tartrate 25 tartrate 25 tartrate Family mg tablet mg tablet 25 mg Prac tic Take 1 Take 1 tablet e tablet tablet Take 1 twice a day twice a day tablet by oral by oral twice a route. route. day by oral route. omeprazole omeprazole No 1capsul BID omeprazole [facility] 20 mg 20 mg e(s) 20 mg Family capsule,del capsule,del capsule,de Practic ayed ayed layed e release release release Take 1 Take 1 Take 1 capsule capsule capsule twice a day twice a day twice a by oral by oral day by route. route. oral route. tiotropium tiotropium No 2puff(s Q1D tiotropium [facility] 2.5 2.5 ) 2.5 Family mcg-olodate mcg-olodate mcg-olodat Practic rol 2.5 rol 2.5 marla 2.5 e mcg/actuati mcg/actuati mcg/actuat on mist for on mist for ion mist inhalation inhalation for Inhale 2 Inhale 2 inhalation puffs every puffs every Inhale 2 day by day by puffs inhalation inhalation every day route. route. by inhalation route. trazodone trazodone No 1 Q1D trazodone [facility] 100 mg 100 mg 100 mg Family tablet Take tablet Take tablet Practic 1 tablet 1 tablet Take 1 e every day every day tablet by oral by oral every day route. route. by oral route. Immunizations Ordered Immunization Filled Immunization Date Status Commen ts Source Name Name influenza, influenza, 2019-11-16 Completed [facility] injectable, injectable, 00:00:00 Practice quadrivalent quadrivalent Vital Signs Vital Name Observation Time Observation Value Comments Source Height 2019-05-31 00:00:00 71 [in_i] [facility] Practice BMI (Body Mass 2019-05-31 00:00:00 6.4 kg/m2 [facility] e Family Index) Practice Body Weight 2019-05-31 00:00:00 46 [lb_av] [facility] Systolic (mm Hg) 2019-02-01 22:41:00 Apollo rial [place] Diastolic (mm Hg) 2019-02-01 22:41:00 Mem orial Frank Heart Rate 2019-02-01 22:41:00 [facility] Respitory Rate 2019-02-01 22:41:00 Memori al Frank Height 2019-02-01 22:41:00 175.26 cm [facility] Weight 2019-02-01 22:41:00 [facility] BMI Calculated 2019-02-01 22:41:00 Memori al [place] Systolic (mm Hg) 2018-12-21 21:00:00 Apollo rial Frank Diastolic (mm Hg) 2018-12-21 21:00:00 Mem orial Frank Heart Rate 2018-12-21 21:00:00 [facility] [place] Height 2018-12-21 21:00:00 177.8 cm [facility] Weight 2018-12-21 21:00:00 [facility] BMI Calculated 2018-12-21 21:00:00 Memori al [place] Systolic (mm Hg) 2018-11-17 14:29:00 Apollo rial Frank Diastolic (mm Hg) 2018-11-17 14:29:00 Mem orial [place] Heart Rate 2018-11-17 14:29:00 [facility] Respitory Rate 2018-11-17 14:29:00 Memori al [place] Height 2018-11-17 14:29:00 172.72 cm [facility] Weight 2018-11-17 14:29:00 [facility] [place] BMI Calculated 2018-11-17 14:29:00 Kristi Langston Procedures Procedure Date / Time Performed Performing Clinician Sourc e Cholecystectomy [facility] Frank Cyst[facility] Ear [facility] Lum[facility]ine Fusion [facility] Plan of Care Planned Activity Planned Date Details Comments Source Instructions [facility] Encounters Start End Encounter Admission Attending Care Care Encounter Source Date/Time Date/Time Type Type Clinicians Facility Department ID 2020-03-20 2020-03-20 [facility] [id number] 08:34:00 13:05:00 Encounter Jose David Olivera [id number] [place] [id number] Surgical [id number] [place] 020 2020-03-20 2020-03-20 Orders Doctor WENDY [id number] 00:00:00 00:00:00 Only Unassigned, [place] [id number] [place] [id number] 2020-03-18 2020-03-18 [facility]erciser [facility] Lovely, [facility] [id number] 11:40:03 11:55:03 Visit Lab Main Jarod [id number] [place] [id number] [facility] [id number] [address] 2020-03-18 2020-03-18 Laboratory Only, [facility] [id number] 11:39:37 11:54:37 Only Test Jarod [id number] [place] [id number] [place] [id number] [facility] 2019-05-31 2019-05-31 [facility] [place] - [id number] [place] [facility] 00:00:00 00:00:00 Nicholas-Ashtyn [facility] mana peters FITNESS/WELLNESS DIRECTOR: Medical - Practi c [id number] [email or web address] [facility], [address] [address], [place] [address] , Ph. 2019-05-03 2019-05-03 Outpatient DANIELA Young GALLO [id number] 15:45:00 15:45:00 Efren 03 Jas 2019-02-01 2019-02-01 Outpatient [facility] [id number] 16:15:00 23:59:59 Efren 02 Jas 2018-12-21 2018-12-21 Outpatient [facility] [id number] 15:00:00 23:59:59 Efren Jas 2018-11-17 2018-11-17 Outpatient [facility] [id number] 09:45:00 23:59:59 Efren 00 Jas Results This patient has no known results.
--- OUTSIDE RECORDS SUMMARY | 2020-04-08 13:11 | XMS REPORT | Continuity of Care Document ---
:1960 Author Organization [facility] Care Team Providers Name Role Phone [facility] Unavailable Un available Problems Problem Status Onset [...] BID, # 60 tab, 2 Refill(s), Pharmacy: [facility] 482 gabapentin 600 600 mg = 1 Active Mische r MG Oral Tablet tab, PO, 019 Neuro TID, # 90 tab, 3 Refill(s), Pharmacy: [facility] 482 Omeprazole 20 mg, PO, Active [...] Fluticasone propionate 0.05 MG/ACTUAT Metered Dose Nasal [place] tiotropium 18 Active [facility] microgram, 019 Neuro [...] [facility] uro Heart Rate 79 02/01/2019 [facility] Respitory Rate 16 [facility] 175.26 [facility]01[facility] Weight 105 02/01/2019 [facility] BMI Calculated 34.18 02/01/2019 [facility] Systolic (mm Hg) 150 12/21/2018 [facility] Yeny ro Diastolic (mm Hg) 80 12/21/2018 [facility] Heart Rate 86 12/21/2018 [facility] Height 177.8 cm 12/21/2018 [facility] Neuro Weight 109.091 12/21/2018 [facility] Neuro BMI Calculated 34.51 12/21/2018 [facility] Neuro Systolic (mm Hg) 143 11/17/2018 [facility] Yeny ro Diastolic (mm Hg) 94 11/17/2018 [facility] Ne uro Heart Rate 69 11/17/2018 [facility] Neuro Respitory Rate 16 11/17/2018 [facility] Neuro Height 172.72 cm 11/17/2018 [facility] Neuro Weight 109.091 11/17/2018 [facility] Neuro BMI Calculated 36.57 11/17/2018 [facility] Neuro Encounters Location Location Encounter Encounter Reason Attending ADM ND Stat us Source Details Type Number For Provider Date Date Visit Outpatient [id number] Efren 11/17 [facility] [place] MNA Outpatient [id number] Efren 11/17 11/18 [facility] Neurology [facility] [place] Outpatient [id number] Efren 12/21 [facility] MNA Outpatient [id number] Efren 12/21 12/22 [facility] Neurology [facility] [place] Outpatient [id number] Efren 02/01 Active [facility] Frank MNA Outpatient [id number] Efren 02/01 02/02 [facility] Neurology [facility] [place] Outpatient [id number] Efren 05/02 [facility] MNA Ambulatory [id number] Efren 05/02 05/02 [facility] Neurology Pre-Reg [facility] [place] Procedures Procedure Code Date Perfomer Comments Source Cholecystectomy [id number] [facility] Neuro Cystectomy [id number] [facility] Neuro Ear implantation [id number] [facility] Assessment and Plan No Data Provided for This Section Plan of Care No Data Provided for This Section Social History Social History Date Source Social History TypeResponse 11/17/2018 [facility] Neur o Employment/School Status: disabled, bipolar.1 Substance Abuse Use: Current. Type: Marijuana.2 Smoking Status Current every day smoker; Type: Cigarett es; Exposure to Tobacco Smoke Unable to obtain; Cigarette Smoking Last 365 Days Unable to obtain; Reg Smoking Cessation Counseling No; Other Tobacco Frequency 2pks aday; entered on: 02/01/19 1Can release medical information to- Spo use-Susan Mims PCP-Dr. [email or web address] with pain Family History No Data Provided for This Section Advance Directives No Data Provided for This Section Functional Status No Data Provided for This Section
[2020-04-08 14:06] VITALS: BMI 33.0
--- NOTE | 2020-04-08 15:08 | P.HP ---
Certification for Inpatient Patient admitted to: Inpatient With expected LOS: >2 Midnights Practitioner: I am a practitioner with admitting privileges, knowledge of patient current condition, hospital course, and medical plan of care. Services: Services provided to patient in accordance with Admission requirements found in Title 42 Section 412.3 of the Code of Federal Regulations Patient History Date of Service: 04/08/20 Primary Care Provider: Dr. Stone Reason for admission: Infection of right elbow History of Present Illness: 59yo M, PMH: prior CVA, COPD, asthma, bipolar, HLD who is admitted to the hospital under recommendation of Dr. Chappell. Patient had his bursa removed ~2 weeks, was doing well postoperatively until this past weekend when his wound opened up, and subsequently began to have purulent drainage in the last 2 days. He was seen by and was then recommended admission to the hospital for surgical washout/debridement. Patient reports chunky white discharge from the incision, associated with pain. He otherwise states he has been feeling well. He denies any nausea/vomiting, no chest pain, no shortness of breath more than usual, no abdominal pain, no dysuria, no lower extremity swelling. Allergies No Known Drug Allergies Allergy (Verified 04/08/20 17:43) Unknown Home Medications: Albuterol Sulfate [Proair Digihaler] 2 puff .ROUTE Q6HR PRN 04/08/20 Aripiprazole [Abilify] 1 tab PO DAILY 04/08/20 Azelastine [Astelin 137MCG/Metered [place]*] 1 puff JAMES BID PRN 04/08/20 Budesonide/Formoterol Fumarate [Budesonide-Formoterol 80-4.5] 2 puff .ROUTE BID 04/08/20 Carboxymethylcellulos/Glycerin [Lubricant 0.5-0.9% Eye Drops] 1 drop EACH EYE QID PRN 04/08/20 Diclofenac Sodium [Voltaren] 1 tab PO PRN PRN 04/08/20 Fluticasone Propionate [Flovent Diskus] 1 spray JAMES DAILY 04/08/20 Gabapentin 1 cap PO TID 04/08/20 Lamotrigine [Lamictal] 100 mg PO BID 04/08/20 Lisinopril [Zestril] 1 tab PO DAILY 02/22/21 Metoprolol Tartrate 1 tab PO Q12HR 04/08/20 Omeprazole 20 mg PO BID 04/08/20 Tiotropium [place] [Spiriva Respimat] 2 puff .ROUTE DAILY 04/08/20 Trazodone HCl 1 tab PO BEDTIME 04/08/20 - Past Medical/Surgical History Has patient received pneumonia vaccine in the past: Yes Diabetic: No -: CVA -: HTN -: COPD -: Bipolar -: HLD -: shoulder sx -: GALL BLADDER REMOVED - Family History Family History: Reviewed- Non-Contributory (Mother-hypertension) - Social History Smoking Status: Current every day smoker Smoking therapy provided: No (Does not want nicotine patch) Alcohol use: Yes CD- Drugs: Yes Place of Residence: Home Review of Systems 10-point ROS is otherwise unremarkable Physical Examination - Physical Exam General: Alert, In no apparent distress, Oriented x3 HEENT: Atraumatic, PERRLA, Mucous membr. moist/pink, EOMI, Sclerae nonicteric Neck: Supple, 2+ carotid pulse no bruit, No LAD, Without JVD or thyroid abnormality Respiratory: Clear to auscultation bilaterally, Normal air movement Cardiovascular: Regular rate/rhythm, Normal S1 S2 Gastrointestinal: Normal bowel sounds, Soft and benign, Non-distended Musculoskeletal: Other (R elbow: slight warmth around incision, purulent drainage noted coming from surgical incision) Neurological: Normal speech, Normal affect Assessment and Plan - Advance Directives Does patient have a Living Will: No Does patient have a Durable POA for Healthcare: No Physician Review Additional Text: Problem list Infected R elbow s/p recent surgery Chronic COPD Chronic Asthma HLD HTN NAY - unable to use CPAP -admit to hospital, IV antibiotics as recommended by Dr. Chappell -patient is to be made NPO after 10:00 a.m. tomorrow for surgery -obtain culture of the purulent drainage from wound -patient does not appear toxic / septic at this time -will obtain baseline labs, EKG, CXR, INR -Dr. Chappell consulted -reportedly will need washout twice Dispo: anticipate dc home in ~4 days Time Spent Managing Pts Care (In Minutes): 60
[2020-04-08 15:50] LABS: Basophils % 0.3 % (0-1.3); Lymphocytes % 12.2 % (15.3-44.8); MPV 9.1 fL (7.6-11.3); RBC Red Blood Cell Count 4.11 M/uL (4.33-5.43)
[2020-04-08] MEDS ORDERED: GLYCERIN OPTH PRN (17:46)
[2020-04-08] MEDS ORDERED: CARBOXYMETHYLCELLULOS OPTH PRN (17:46)
[2020-04-08] MEDS ORDERED: DICLOFENAC SOD D.R. 75 MG TAB PO PRN (17:46)
[2020-04-08] MEDS ORDERED: TRAZODONE 50 MG TABLET PO PRN (17:48)
[2020-04-08] MEDS ORDERED: ALBUTEROL SULFATE 90 MCG IH PRN (18:00)
[2020-04-08] MEDS: CLINDAMYCIN INJ 900 MG in NA CHLORIDE 0.9% 50 ML IV SCH (18:11)
[2020-04-08] MEDS: VANCOMYCIN 2 GM in NA CHLORIDE 0.9% 500 ML IVPB SCH (18:43)
--- NOTE | 2020-04-08 18:43 | RAD REPORT ---
EXAM DESCRIPTION: Claudia Single View04/08/2020 6:23 pm CLINICAL HISTORY: Preop/COPD COMPARISON: 2017 FINDINGS: The lungs are mildly hyperaerated. The lungs appear clear of acute infiltrate. The heart is normal size IMPRESSION: No acute abnormalities displayed
[2020-04-08] MEDS: GABAPENTIN 300 MG CAP PO SCH (20:27)
[2020-04-08] MEDS: lamoTRIgine 100 MG TAB PO SCH (20:27)
[2020-04-08] MEDS: METOPROLOL TAR 25 MG TAB PO SCH (20:27)
[2020-04-08] MEDS: levoFLOXacin 500 MG TAB PO SCH (20:29)
[2020-04-08] MEDS: BUDESONIDE FORMOTEROL IH SCH (20:35)
[2020-04-08] MEDS: HYDROCODONE/APAP 5/325 MG TAB PO PRN (21:46)
[2020-04-08] MEDS ORDERED: ALBUTEROL 2.5 MG/3 ML NEB SOL NEB PRN (22:50)
[2020-04-09] MEDS: CLINDAMYCIN INJ 900 MG in NA CHLORIDE 0.9% 50 ML IV SCH ×3 (00:21→17:00)
[2020-04-09 06:05] LABS: Absolute Lymphocytes (CBC) 1.7 K/uL (0.7-4.9); Basophils % 0.3 % (0-1.3); Hematocrit 36.8 % (39.6-49.0); Lymphocytes % 12.1 % (15.3-44.8); MPV 8.8 fL (7.6-11.3); RBC Red Blood Cell Count 3.82 M/uL (4.33-5.43)
[2020-04-09 06:15] LABS: Protime INR 1.09
[2020-04-09 06:23] LABS: Albumin 3.4 g/dL (3.4-5.0); Bilirubin Total 0.5 mg/dL (0.2-1.0); Magnesium 1.9 mg/dL (1.8-2.4); Potassium 4.1 mmol/L (3.5-5.1); Protein, Total 7.3 g/dL (6.4-8.2)
[2020-04-09] MEDS: ARIPiprazole 5 MG TAB PO SCH (08:55)
[2020-04-09] MEDS: METOPROLOL TAR 25 MG TAB PO SCH ×2 (08:55→21:31)
[2020-04-09] MEDS: PANTOPRAZOLE 40MG TABLET PO SCH ×2 (08:55→16:30)
[2020-04-09] MEDS: levoFLOXacin 500 MG TAB PO SCH (08:55)
[2020-04-09] MEDS: lamoTRIgine 100 MG TAB PO SCH ×2 (08:55→21:31)
[2020-04-09] MEDS: GABAPENTIN 300 MG CAP PO SCH ×3 (08:55→21:31)
[2020-04-09] MEDS: lisinopriL 10 MG TAB PO SCH (08:55)
[2020-04-09] MEDS: FLUTICASONE PROPIONATE 50 MCG NAS SCH (09:00)
[2020-04-09] MEDS: TIOTROPIUM BROMIDE 4 GM IH SCH (09:00)
[2020-04-09] MEDS: BUDESONIDE FORMOTEROL IH SCH ×2 (09:00→21:00)
--- NOTE | 2020-04-09 09:10 | PN ---
Date of Progress Note: 04/09/2020 Subjective: The patient is seen today. His laboratories were reviewed. At time of admission yester day, he had a pain level of 8 as well as temperature of 99.2, now he is 98.2 with pain improving. He has had cultures taken which at this time are still pending for Gram stain as well as culture. At t marni of admission, white blood cell count was 16.8, now 14.2. At this time plan is to be n.p.o. after 10 o'clock and proceed with operative irrigation and debridement this evening. This has been explai leny to the patient. He understands things as presented. /ALLEN Voice ID: [id number] Report ID: [id number]
[2020-04-09] MEDS: VANCOMYCIN 2 GM in NA CHLORIDE 0.9% 500 ML IVPB SCH (13:00)
--- NOTE | 2020-04-09 14:14 | P.PN ---
Subjective Date of Service: 04/09/20 Primary Care Provider: Dr. Stone Chief Complaint: Infection of right elbow Patient complaining of pain in the right elbow. He has been afebrile. Blood pressure is elevated. Physical Examination - Vital Signs Temperature: 97.2 F Blood Pressure: 171/88 Pulse: 106 Respirations: 20 Pulse Ox (%): 93 - Physical Exam General: Alert, In no apparent distress HEENT: Atraumatic, Normocephalic, EOMI, Sclerae nonicteric Neck: Supple, JVD not distended Respiratory: Clear to auscultation bilaterally, Normal air movement Cardiovascular: No edema, Regular rate/rhythm, Normal S1 S2 Gastrointestinal: Normal bowel sounds, Soft and benign Musculoskeletal: Other (Right elbow wound dressed.) Neurological: Normal strength at 5/5 x4 extr, Cranial nerves 3-12 intact - Studies Laboratory Data (last 24 hrs) 04/09/20 05:44: PT 12.6 H, INR 1.09 04/09/20 05:44: Sodium 137, Potassium 4.1, BUN 16, Creatinine 1.01, Glucose 119 H, Magnesium 1.9, Total Bilirubin 0.5, AST 16, ALT 27, Alkaline Phosphatase 69 04/09/20 05:44: WBC 14.20 H D, Hgb 12.5 L, Hct 36.8 L, Plt Count 201 04/08/20 15:29: Magnesium 2.2 04/08/20 15:29: Sodium 138, Potassium 4.0, BUN 18, Creatinine 1.06, Glucose 99 04/08/20 15:29: WBC 16.80 H, Hgb 13.0 L, Hct 40.0, Plt Count 205 Microbiology Data (last 24 hrs): 04/08/20 11:20 Wound - Right Elbow Gram Stain - Final Assessment And Plan Physician Review Additional Text: Problem list Infected R elbow s/p recent surgery Chronic COPD Chronic Asthma HLD HTN NAY - unable to use CPAP -continue IV vancomycin and clindamycin. -patient is scheduled for irrigation and debridement this afternoon. -obtain deep tissue wound culture. -patient does not appear toxic / septic at this time -Dr. Chappell to see patient for surgery -pain management as needed -continue home medications postop.
[2020-04-09] MEDS ORDERED: propofoL 200 MG/20 ML VIAL IV ONE (16:08)
[2020-04-09] MEDS ORDERED: LIDOCAINE 2% MPF 5 ML VIAL ONE (16:09)
[2020-04-09] MEDS ORDERED: FENTANYL CITR 100 MCG/2 ML ONE (16:09)
[2020-04-09] MEDS ORDERED: Ringers Lactate 1,000 ML IV ONE (16:11)
[2020-04-09] MEDS ORDERED: dexAMETHasone 10 MG/ML VIAL ONE (17:34)
[2020-04-09] MEDS ORDERED: KETOROLAC 30 MG/ML INJ ONE (17:34)
[2020-04-09] MEDS ORDERED: ONDANSETRON 4 MG/2 ML VIAL ONE (17:35)
--- NOTE | 2020-04-09 17:50 | P.BOP ---
Preoperative diagnosis: right draining elbow incision Postoperative diagnosis: same Primary procedure: Sharp I&D of elbow incision Estimated blood loss: 10 ccs Anesthesia: General Complications: None Transferred to: Recovery Room Condition: Good
[2020-04-10] MEDS: CLINDAMYCIN INJ 900 MG in NA CHLORIDE 0.9% 50 ML IV SCH ×3 (00:12→17:48)
[2020-04-10] MEDS ORDERED: NA CHLORIDE 0.9% 500 ML ONE (00:18)
--- NOTE | 2020-04-10 02:33 | OP ---
Date of Procedure: 04/09/2020 Surgeon: Jose David Chappell MD Preoperative Diagnosis: Right elbow incisional drainage. Postoperative Diagnosis: Right elbow incisional drainage. Procedures: Right elbow irrigation and sharp debridement of incision leaving open with Kerlix. Estimated Blood Loss: Less than 10 cc. Complications: No complications. No pathology specimens sent. Indications For Operation: Mr. Schuler is a 59-year-old gentleman who approximately 4 weeks ago und erwent a bursal excision by myself and came back to see me 2 weeks ago where his sutures were removed . He appeared to be doing very well. He had a small amount of fluid under the skin, but no erythema or sign of infection. I gave him the option of draining this fluid or treating it with an Karri wrap. He decided to continue with the Karri wrap. He was doing very well until he called our office yester day saying that he has had drainage from his incision. He came to see me in my office immediately. On visual inspection, he did have an area which was draining and appeared to be draining pus. This a oni was used for cultures and he is admitted to the hospital for IV antibiotics, scheduled for irriga tion and debridement today. Risks, benefits, and alternatives of this procedure were discussed with the patient. He states he understands things presented and wishes to proceed. Description Of Procedure: The patient was taken to the operating room and placed in supine position. General anesthesia was obtained by staff. Following this, he was then prepped and draped in usual sterile fashion for open wound. After this, there did not appear to be any fluctuance, just simple d rainage from the wound. The previous incision was then exploited through skin only. There appeared to be very good amount of granulation tissue throughout. However, there was some areas of purulence. The Vicryl sutures used were removed and a combination of curette and rongeur were used to debride anything that did not look beefy red and viable. This was followed by irrigation with approximately 2 L of sterile saline and further debridement in the same manner with another liter of sterile saline . At the conclusion, all surfaces appeared to be bleeding and healthy. The wound was packed using K erlix. He was placed in a extremely well-padded sterile dressing as well as a posterior splint. He was then awakened and taken to recovery room in good condition. No complications. SE/MODL Voice ID: [id number] Report ID: [id number]
[2020-04-10] MEDS ORDERED: VANCOMYCIN 1 GM/VIAL ONE (05:27)
[2020-04-10] MEDS ORDERED: NA CHLORIDE 0.9% 250 ML ONE (05:28)
[2020-04-10 05:31] LABS: Absolute Lymphocytes (CBC) 0.5 K/uL (0.7-4.9); Basophils % 0.3 % (0-1.3); Lymphocytes % 6.8 % (15.3-44.8); MPV 8.9 fL (7.6-11.3); RBC Red Blood Cell Count 3.75 M/uL (4.33-5.43)
[2020-04-10] MEDS: VANCOMYCIN 2 GM in NA CHLORIDE 0.9% 500 ML IVPB SCH (05:34)
[2020-04-10 05:52] LABS: Potassium 4.6 mmol/L (3.5-5.1)
[2020-04-10 06:37] LABS: Blood Morphology Comment NOT SEEN (NOT SEEN); Platelet Estimate ADEQ
[2020-04-10] MEDS: BUDESONIDE FORMOTEROL IH SCH ×2 (09:00→20:30)
[2020-04-10] MEDS: FLUTICASONE PROPIONATE 50 MCG NAS SCH (09:00)
[2020-04-10] MEDS: PANTOPRAZOLE 40MG TABLET PO SCH ×2 (09:10→16:30)
[2020-04-10] MEDS: levoFLOXacin 500 MG TAB PO SCH (09:10)
[2020-04-10] MEDS: lisinopriL 10 MG TAB PO SCH (09:10)
[2020-04-10] MEDS: METOPROLOL TAR 25 MG TAB PO SCH ×2 (09:10→20:31)
[2020-04-10] MEDS: ARIPiprazole 5 MG TAB PO SCH (09:10)
[2020-04-10] MEDS: GABAPENTIN 300 MG CAP PO SCH ×3 (09:10→20:31)
[2020-04-10] MEDS: lamoTRIgine 100 MG TAB PO SCH ×2 (09:10→20:31)
[2020-04-10] MEDS: TIOTROPIUM BROMIDE 4 GM IH SCH (09:11)
--- NOTE | 2020-04-10 12:05 | P.PN ---
Subjective Date of Service: 04/10/20 Primary Care Provider: Dr. Stone Chief Complaint: Infection of right elbow Subjective: Improving (Pain is controlled well, denies any fever or chills) Review of Systems 10-point ROS is otherwise unremarkable Physical Examination - Vital Signs Temperature: 97.4 F Blood Pressure: 178/89 Pulse: 107 Respirations: 20 Pulse Ox (%): 93 - Physical Exam General: Alert, In no apparent distress, Oriented x3 HEENT: Atraumatic, Normocephalic Neck: Supple, JVD not distended Respiratory: Clear to auscultation bilaterally, Normal air movement Cardiovascular: Regular rate/rhythm, Normal S1 S2 Capillary refill: <2 Seconds Gastrointestinal: Soft and benign, Non-distended, W/out hepatosplenomegaly Musculoskeletal: No clubbing, No swelling Integumentary: No rashes, No breakdown Neurological: Normal speech, Normal strength at 5/5 x4 extr Lymphatics: No axilla or inguinal lymphadenopathy - Studies Laboratory Data (last 24 hrs) 04/10/20 05:06: Sodium 138, Potassium 4.6, BUN 20 H, Creatinine 1.07, Glucose 148 H 04/10/20 05:06: WBC 7.00 D, Hgb 12.2 L, Hct 36.0 L, Plt Count 215 Microbiology Data (last 24 hrs): 04/08/20 11:20 Wound - Right Elbow Gram Stain - Final Assessment & Plan Discharge Plan: Home Physician Review Additional Text: Assessment and Plan Infected R elbow s/p recent surgery Chronic COPD Chronic Asthma HLD HTN NAY Plan : Continue IV vancomycin and clindamycin. S/p irrigation and debridement Appreciate help from Ortho Awaiting deep tissue wound culture report Appreciate help from Dr. Chappell pain control continue home medications GI/DVT prophylaxis Disposition : possible Dc in a.m. if cleared by Dr. Chappell Time Spent Managing Pts Care (In Minutes): 39
[2020-04-10] MEDS: HYDROCODONE/APAP 5/325 MG TAB PO PRN (17:47)
--- NOTE | 2020-04-10 19:47 | PN ---
Date of Progress Note: 04/10/2020 The patient is seen today. He is resting fairly comfortably in his splint. He is neurovascularly in tact to his hand. Review of cultures reveal 2+ alpha hemolytic strep, presumptive strep pneumoniae. I have talked to the hospitalist regarding this and whether or not change of antibiotics is a possib ility. However, at this point, he will be made n.p.o. after midnight and tomorrow we will take him b ack to the operating room for irrigation and debridement, possible closure of drain, could possibly d ischarge him tomorrow and have him come to my office on Wednesday to remove the drain. He desires this greatly, but we will see how he does tomorrow with surgery. All of his questions have otherwise been invited and answered. CLIFFORD Voice ID: [id number] Report ID: [id number]
[2020-04-10] MEDS: CEFEPIME/SWI 1gm 10 ML IV SCH (20:31)
[2020-04-10] MEDS ORDERED: CEFEPIME 1 GM/VIAL IV SCH (21:00)
[2020-04-11] MEDS: VANCOMYCIN 2 GM in NA CHLORIDE 0.9% 500 ML IVPB SCH (00:01)
[2020-04-11] MEDS: CEFEPIME/SWI 1gm 10 ML IV SCH (06:11)
[2020-04-11] MEDS: PANTOPRAZOLE 40MG TABLET PO SCH ×2 (07:30→16:30)
[2020-04-11] MEDS: GABAPENTIN 300 MG CAP PO SCH ×2 (09:00→14:45)
[2020-04-11] MEDS: BUDESONIDE FORMOTEROL IH SCH (09:00)
[2020-04-11] MEDS: FLUTICASONE PROPIONATE 50 MCG NAS SCH (09:00)
[2020-04-11] MEDS: METOPROLOL TAR 25 MG TAB PO SCH (09:00)
[2020-04-11] MEDS: lamoTRIgine 100 MG TAB PO SCH (09:00)
[2020-04-11] MEDS: TIOTROPIUM BROMIDE 4 GM IH SCH (09:00)
[2020-04-11] MEDS: levoFLOXacin 500 MG TAB PO SCH (09:00)
[2020-04-11] MEDS: lisinopriL 10 MG TAB PO SCH (09:00)
[2020-04-11] MEDS: ARIPiprazole 5 MG TAB PO SCH (09:00)
[2020-04-11] MEDS ORDERED: propofoL 200 MG/20 ML VIAL IV ONE (10:35)
[2020-04-11] MEDS ORDERED: MIDAZOLAM HCL 2 MG/2 ML INJ ONE (10:53)
[2020-04-11] MEDS ORDERED: ONDANSETRON 4 MG/2 ML VIAL ONE (10:53)
[2020-04-11] MEDS ORDERED: KETOROLAC 30 MG/ML INJ ONE (10:53)
[2020-04-11] MEDS ORDERED: FENTANYL CITR 100 MCG/2 ML ONE (10:53)
[2020-04-11] MEDS ORDERED: dexAMETHasone 4 MG/ML VIAL ONE (10:58)
[2020-04-11] MEDS: Ringers Lactate 1,000 ML IV ONE (11:05)
[2020-04-11] MEDS ORDERED: BUPIVACA 0.25%/EPI 0.0005% MDV 50 ML VIAL ONE (11:06)
--- NOTE | 2020-04-11 12:59 | P.BOP ---
Preoperative diagnosis: right draining elbow incision after previous I&D Postoperative diagnosis: same Primary procedure: Sharp I&D of elbow incision second look Estimated blood loss: 10 ccs Complications: None Transferred to: Recovery Room Condition: Good
[2020-04-11 13:41] VITALS: TEMP 97; O2SAT 97
--- NOTE | 2020-04-11 13:57 | OP ---
Date of Procedure: 04/11/2020 Surgeon: Jose David Chappell MD Preoperative Diagnosis: Right elbow status post irrigation and debridement of incisional wound. Postoperative Diagnosis: Right elbow status post irrigation and debridement of incisional wound. Procedure: Right elbow second-look irrigation and debridement with sharp debridement including a celeste geur and curette as well as closure over drain. Estimated Fluid Loss: 10 cc. Complications: There were no complications. Pathology Specimen: No pathology specimen sent. Indications For Operation: Mr. Schuler is a patient, who has had incisional drainage of his elbow. For further indications, please refer to index operation, but he is here for second-look irrigation and debridement, possible closure. No sign of infection. He has been treated with antibiotics on e floor and apparently has Strep infection there. Description Of Procedure: The patient was taken to the operating room and placed in supine position. General anesthesia was obtained by staff. Following this, his right upper extremity was then prepp ed and draped in usual sterile fashion for an open wound. After this, approximately 2 L of sterile s ameya were used for irrigation and it was inspected. There was found to be no sign of any purulence or really any significant erythema. There did appear to be more less granulation tissue throughout w ith a small exception of the very tip of the olecranon at the insertion of the triceps. There was fo und to be no tracking areas or areas that are explored. It was then debrided using combination of ro ngeurs and curettes and an additional liter of sterile saline was used. After this, a medium Hemovac drain was placed and the skin was then closed using nylon sutures. The patient was then placed in a n Aquacel dressing as well as extremely padded dressing and a posterior splint and taken to recovery room in good condition. There were no complications. SE/MODL Voice ID: [id number] Report ID: [id number]
--- NOTE | 2020-04-11 16:19 | P.DS ---
Admission Date: 04/08/20 Discharge Date: 04/11/20 Primary Care Provider: Dr. Stone Disposition: ROUTINE DISCHARGE Discharge Condition: FAIR Reason for Admission: Infection of right elbow Consultations: Orthopedics-Dr. Chappell Procedures: Right elbow irrigation and debridement. Brief History of Present Illness: 59-year-old gentleman with a history of CVA, COPD, asthma, bipolar disorder was referred by Dr. Yeboah to be directly admitted for management of infected right elbow wound. Patient had a bursa from the elbow removed about 2 weeks prior. His wound opened up and begin to drain purulent discharge. He was seen by Dr. Chappell who recommended admission for surgical washout and debridement. Hospital Course: Infected R elbow s/p recent surgery Chronic COPD Chronic Asthma HLD HTN NAY - unable to use CPAP Patient admitted to the medical floor and treated with IV antibiotics which included cefepime and vancomycin. Patient was seen by Dr. Chappell will performed irrigation and debridement and left a drain. Deep tissue wound culture grew alpha hemolytic strep. Patient deemed stable for discharge per Dr. Chappell. Dr. Chappell will follow him in the office tomorrow for further management. He is prescribed Augmentin to continue treatment for the infected wound. Vital Signs/Physical Exam: Temp Pulse Resp BP Pulse Ox 97.0 F 93 H 20 137/94 H 95 04/11/20 13:33 04/11/20 13:33 04/11/20 13:33 04/11/20 13:33 04/11/20 08:00 General: Alert, In no apparent distress, Oriented x3 HEENT: Mucous membr. moist/pink Neck: Supple Respiratory: Clear to auscultation bilaterally, Normal air movement Cardiovascular: No edema, Regular rate/rhythm, Normal S1 S2 Gastrointestinal: Normal bowel sounds, Soft and benign, Non-distended, No tenderness Musculoskeletal: Other (Dressed white elbow wound.) Neurological: Other (No focal motor deficit.) Laboratory Data at Discharge: WBC 7.00 K/uL (4.3-10.9) D 04/10/20 05:06 Hgb 12.2 g/dL (13.6-17.9) L 04/10/20 05:06 Hct 36.0 % (39.6-49.0) L 04/10/20 05:06 Plt Count 215 K/uL (152-406) 04/10/20 05:06 PT 12.6 SECONDS (9.5-12.5) H 04/09/20 05:44 INR 1.09 04/09/20 05:44 Sodium 138 mmol/L (136-145) 04/10/20 05:06 Potassium 4.6 mmol/L (3.5-5.1) 04/10/20 05:06 BUN 20 mg/dL (7-18) H 04/10/20 05:06 Creatinine 1.07 mg/dL (0.55-1.3) 04/10/20 05:06 Glucose 148 mg/dL (74-106) H 04/10/20 05:06 Magnesium 1.9 mg/dL (1.8-2.4) 04/09/20 05:44 Total Bilirubin 0.5 mg/dL (0.2-1.0) 04/09/20 05:44 AST 16 U/L (15-37) 04/09/20 05:44 ALT 27 U/L (12-78) 04/09/20 05:44 Alkaline Phosphatase 69 U/L (45-117) 04/09/20 05:44 Home Medications: Albuterol Sulfate [Proair Digihaler] 2 puff .ROUTE Q6HR PRN 04/08/20 Aripiprazole [Abilify] 1 tab PO DAILY 04/08/20 Azelastine [Astelin 137MCG/Metered [place]*] 1 puff JAMES BID PRN 04/08/20 Budesonide/Formoterol Fumarate [Budesonide-Formoterol 80-4.5] 2 puff .ROUTE BID 04/08/20 Carboxymethylcellulos/Glycerin [Lubricant 0.5-0.9% Eye Drops] 1 drop EACH EYE QID PRN 04/08/20 Diclofenac Sodium [Voltaren] 1 tab PO PRN PRN 04/08/20 Fluticasone Propionate [Flovent Diskus] 1 spray JAMES DAILY 04/08/20 Gabapentin 1 cap PO TID 04/08/20 Lamotrigine [Lamictal] 100 mg PO BID 04/08/20 Lisinopril [Zestril] 1 tab PO DAILY 04/08/20 Metoprolol Tartrate 1 tab PO Q12HR 04/08/20 Omeprazole 20 mg PO BID 04/08/20 Tiotropium [place] [Spiriva Respimat] 2 puff .ROUTE DAILY 04/08/20 Trazodone HCl 1 tab PO BEDTIME 04/08/20 Amox/Clavulanate [Augmentin 875-125 Tab] 875 mg PO BID #20 tab 04/11/20 New Medications: Amox/Clavulanate [Augmentin 875-125 Tab] 875 mg PO BID #20 tab Diet: AHA Activity: Ad alexander Followup: Glynn Stone DO [Primary Care Provider] - Jose David Chappell MD [ACTIVE - CAN ADMIT] - 1 Day Time spent managing pt's care (in minutes): 36
[2020-04-11 17:39] VITALS: BP 179/96
== END 2020-04-11 17:24 | disposition home or self-care (01) | DRG 863 ==
LOC: 2ND 13:07
PROVIDERS: ADMIT Hospitalist; ATTEND Internal Medicine
PROC: 3E10X8Z Irrigation of Skin and Mucous Membranes using Irrigating Substance (ICD-10-PCS; 2020-04-09)
PROC: 0HBDXZZ Excision of Right Lower Arm Skin, External Approach (ICD-10-PCS; principal; 2020-04-09 16:30)
PROC: 0HDDXZZ Extraction of Right Lower Arm Skin, External Approach (ICD-10-PCS; 2020-04-11)
PROC: 0HQDXZZ Repair Right Lower Arm Skin, External Approach (ICD-10-PCS; 2020-04-11)
DX: T81.49XA Infection following a procedure, other surgical site, initial encounter (principal); J44.9 Chronic obstructive pulmonary disease, unspecified; E78.5 Hyperlipidemia, unspecified; F17.200 Nicotine dependence, unspecified, uncomplicated; G47.33 Obstructive sleep apnea (adult) (pediatric); I10 Essential (primary) hypertension; B99.8 Other infectious disease; Z79.899 Other long term (current) drug therapy; Z86.73 Personal history of transient ischemic attack (TIA), and cerebral infarction without residual deficits; Z20.822 Contact with and (suspected) exposure to COVID-19
CPT/HCPCS: 36415; 71045; 80048; 80053; 80202; 83036; 83735; 84145; 85025; 85610; 86140; 87070; 87077; 87186; 87205; 94640; J0692; J1100; J2250; J2405; J2704; J3010; J3370; J7040; J7050; J7120; U0003

== ENCOUNTER 2020-04-30 13:17 | Emergency (ER) | payer OTHER ==
--- OUTSIDE RECORDS SUMMARY | 2020-04-30 13:20 | XMS REPORT | Continuity of Care Document ---
:1960 Author Organization [facility] t Address [address] [place] [address] [address] [place] [address] Care Team Providers Name Role Phone Jaime Chappell MD Attending Clinician Doctor Unassigned, Name Attending Clinician Unavailable Pob, Lab Main Attending Clinician Unavailable Only, Test Attending Clinician Unavailable Jas Young Attending Clinician Jaime Chappell MD Admitting Clinician Problems Condition Condition Condition Status Onset Resolution Last Treating Co mments Source Name Details Category Date Date Treatment Clinician Date Major Major Problem Active 2020-0 [facility] depressive Depressive 4-19 Fa ranjeet disorder Disorder 00:00: Practi c 00 e Seasonal Seasonal Problem Active 2020-0 [facility] allergy Allergy 4-19 Family 00:00: Practic 00 e Bipolar Bipolar Problem Active 2020-0 [facility] disorder Disorder 4-15 Family 00:00: Practic 00 e Insomnia Insomnia Problem Active 2020-0 [facility] 1- Family 00:00: Practic 00 e Essential Essential Problem Active 2020-0 Leila sam hypertensi Hypertensi 1 Fa ranjeet on on 00:00: Practic 00 e Peripheral Peripheral Problem Active 2020-0 [facility] vascular Vascular 1- Family disease Disease 00:00: Practic 00 e Chronic Chronic Problem Active 2020-0 [facility] obstructiv Obstructiv 02-15 Fa ranjeet e lung e Lung 00:00: Practic disease Disease 00 e Gastroesop Gastroesop Problem Active 2020-0 [facility] hageal hageal 1- Family reflux Reflux 00:00: Practic disease Disease 00 e Benign Benign Problem Active 2020-0 [facility] prostatic Prostatic 1 Fami ly hyperplasi Hyperplasi 00:00: Pr actic a a 00 e Chronic Chronic Problem Active 2019- [facility] back pain Back Pain 02-15 Fami ly 00:00: Practic 00 e Abnormal Problem Active 2019-05-05 Mem oria breathing 22:14:01 l (finding) Abnormal Her rudolph breathing (finding) Active Problem 05/05/2019 [facility] Cough Problem Active 2019-05-05 Memor ia (finding) 22:14:01 l Cough Frank (finding) Active Problem 05/05/2019 [facility] Hyperlipid Problem Active 2019-05-05 M emoria emia 22:14:01 l (disorder) Richard n Hyperlipid emia (disorder) Active Problem 05/05/2019 [facility] Hypertensi Problem Active 2019-05-05 M emoria ve 22:14:01 l disorder, [place] systemic Hypertensi arterial ve (disorder) disorder, systemic [...] M emoria of lower 22:14:01 l limb [place] (disorder) Neuropathy of lower limb (disorder) Active [...] Date Stop Date Source Light Tobacco Smoker [facility] Practice Medications Ordered Filled Start Stop Current Ordering Indication Dosage Frequency Signature Comments Components Source Medication Medication Date Date Medication? Clinician (SIG) Name Name baclofen 2018-02 Yes 10 mg = 1 M emoria mg oral 2-16 tab, PO, l tablet 15:05: BID, # 60 Richard n 00 tab, 2 Refill(s), Pharmacy: [facility] 482 gabapentin 2018-02 Yes 600 mg = 1 M emoria 600 MG Oral 0-03 tab, PO, l Tablet 15:38: TID, # 90 Richard n 00 tab, 3 Refill(s), Pharmacy: [facility] 482 Trazodone 2018-02 Yes 100 [...] Fluticasone propionate 0.05 MG/ACTUAT Metered Dose Nasal [place] tiotropium 2018-02 Yes 18 Memoria 0-03 microgram, l 14:34: INHALATION Frank 00 , Daily, 0 Refill(s) carboxymeth 2018-02 Yes 1 appl, Mem oria ylcellulose 0-03 BOTH EYES, l -sodium 14:34: QID, 0 Frank hyaluronate 00 Refill(s) topical film Diclofenac 2018-02 Yes 75 mg, PO, M emoria 0-03 PRN, 0 l 14:34: Refill(s) [place] 00 Budesonide 2018-02 Yes 2 puff, Apollo mihir 0.08 0-03 INHALATION l MG/ACTUAT / 14:34: , BID, 0 He rmann formoterol 00 Refill(s) fumarate 0.0045 MG/ACTUAT Metered Dose Inhaler Omeprazole 2018-02 Yes 20 mg, PO, M emoria 0-03 Daily, 0 l 14:34: Refill(s) Frank albuterol albuterol No 2puff(s Q4H albuterol [facility] sulf 90 sulf 90 ) sulf 90 [...] route. azelastine azelastine No 2spray( BID azelastine [facility] 137 mcg 137 mcg s) 137 mcg Family (0.1 %) (0.1 %) (0.1 %) Practi c nasal spray nasal spray nasal e aerosol aerosol spray [place] 2 [place] 2 aerosol sprays sprays [place] 2 twice a day twice a day sprays by by twice a intranasal intranasal day by route. route. intranasal route. budesonide budesonide No 1puff(s BID budesonide [facility] 180 180 ) 180 Family mcg/actuati mcg/actuati [...] bid cetirizine cetirizine No 1mg Q1D cetirizine [facility] 10 mg 10 mg 10 mg Family capsule capsule capsule Practi c Take 1 mg Take 1 mg Take 1 mg e every day every day every day by oral by oral by oral route. route. route. gabapentin gabapentin No 1capsul TID gabapentin [facility] 300 mg 300 mg e(s) 300 mg Family capsule capsule capsule Practi c Take 1 Take 1 Take 1 e capsule 3 capsule 3 capsule 3 times a day times a day times a by oral by oral day by route. route. oral route. lamotrigine lamotrigine No 1 BID lamotrigin [facility] 200 mg 200 mg e 200 mg Family tablet Take tablet Take tablet Practic 1 tablet 1 tablet Take 1 e twice a day twice a day tablet by oral by oral twice a route. route. day by oral route. lisinopril lisinopril No 1 Q1D lisinopril [facility] 10 mg 10 mg 10 mg Family tablet Take tablet Take tablet Practic 1 tablet 1 tablet Take 1 e every day every day tablet by oral by oral every day route. route. by oral route. metoprolol metoprolol No 1 BID metoprolol [facility] tartrate 25 tartrate 25 tartrate Family mg tablet mg tablet 25 mg Prac tic Take 1 Take 1 tablet e tablet tablet Take 1 twice a day twice a day tablet by oral by oral twice a route. route. day by oral route. omeprazole omeprazole No 1capsul BID omeprazole [facility] 20 mg 20 mg e(s) 20 mg Family capsule,del capsule,del capsule,de Practic ayed ayed layed e release release release Take 1 Take 1 Take 1 capsule capsule capsule twice a day twice a day twice a by oral by oral day by route. route. oral route. tiotropium tiotropium No 2puff(s Q1D tiotropium [facility] 2.5 2.5 ) 2.5 Family mcg-olodate mcg-olodate mcg-olodat Practic rol 2.5 rol 2.5 marla 2.5 e mcg/actuati mcg/actuati mcg/actuat on mist for on mist for ion mist inhalation inhalation for Inhale 2 Inhale 2 inhalation puffs every puffs every Inhale 2 day by day by puffs inhalation inhalation every day route. route. by inhalation route. trazodone trazodone No 1 Q1D trazodone [facility] 100 mg 100 mg 100 mg Family tablet Take tablet Take tablet Practic 1 tablet 1 tablet Take 1 e every day every day tablet by oral by oral every day route. route. by oral route. Immunizations Ordered Immunization Filled Immunization Date Status Commen ts Source Name Name influenza, influenza, 2019-11-[address] [facility] injectable, injectable, 00:00:00 Practice quadrivalent quadrivalent Vital Signs Vital Name Observation Time Observation Value Comments Source Height 2019-05-31 00:00:00 71 [in_i] [facility] Practice BMI (Body Mass 2019-05-31 00:00:00 6.4 kg/m2 [facility] e Family Index) Practice Body Weight 2019-05-31 00:00:00 46 [lb_av] [facility] Systolic (mm Hg) 2019-02-01 22:41:00 Apollo rial Frank Diastolic (mm Hg) 2019-02-01 22:41:00 Mem orial Frank Heart Rate 2019-02-01 22:41:00 [facility] Respitory Rate 2019-02-01 22:41:00 Memori al Frank Height 2019-02-01 22:41:00 175.26 cm [facility] Weight 2019-02-01 22:41:00 [facility] [place] BMI Calculated 2019-02-01 22:41:00 Memori al [place] Systolic (mm Hg) 2018-12-21 21:00:00 Apollo rial Frank Diastolic (mm Hg) 2018-12-21 21:00:00 Mem orial [facility] Heart Rate 2018-12-21 21:00:00 [facility] Height 2018-12-21 21:00:00 177.8 cm [facility] Weight 2018-12-21 21:00:00 [facility] [place] BMI Calculated 2018-12-21 21:00:00 Memori al [place] Systolic (mm Hg) 2018-11-17 14:29:00 Apollo rial Frank Diastolic (mm Hg) 2018-11-17 14:29:00 Mem orial [place] Heart Rate 2018-11-17 14:29:00 [facility] Respitory Rate 2018-11-17 14:29:00 Memori al [place] Height 2018-11-17 14:29:00 172.72 cm [facility] Weight 2018-11-17 14:29:00 [facility] [place] BMI Calculated 2018-11-17 14:29:00 Kristi Langston Procedures Procedure Date / Time Performed Performing Clinician Sourc e Cholecystectomy [facility] Frank Cyst[facility] Plan of Care Planned Activity Planned Date Details Comments Source Instructions [facility] Encounters Start End Encounter Admission Attending Care Care Encounter Source Date/Time Date/Time Type Type Clinicians Facility Department ID 2020-03-20 2020-03-20 [facility] [id number] 08:34:00 13:05:00 Encounter Jose David Olivera [id number] [place] [id number] Surgical [id number] [place] 020 2020-03-20 2020-03-20 Orders Doctor WENDY [id number] 00:00:00 00:00:00 Only Unassigned, [place] [id number] [place] [id number] 2020-03-18 2020-03-18 [employer] Lovely, [facility] [id number] 11:40:03 11:55:03 Visit Lab Main Jarod [id number] [place] [id number] [facility] [id number] [address] 2020-03-18 2020-03-18 Laboratory Only, [facility] [id number] 11:39:37 11:54:37 Only Test Jarod [id number] [place] [id number] [place] [id number] [facility] 2019-05-31 2019-05-31 [facility] [place] - [id number] [place] 00:00:00 00:00:00 Nicholas-Ashtyn [facility] mana peters 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 2019-05-03 2019-05-03 Outpatient DANIELA Young GALLO [id number] 15:45:00 15:45:00 Efren 03 Jas 2019-02-01 2019-02-01 Outpatient Hector [facility] [id number] 16:15:00 23:59:59 Efren 02 Jas 2018-12-21 2018-12-21 Outpatient Hector [facility] [id number] 15:00:00 23:59:59 Efren Jas 2018-11-17 2018-11-17 Outpatient Hector [facility] [id number] 09:45:00 23:59:59 Efren 00 Jas Results This patient has no known results.
--- NOTE | 2020-04-30 19:16 | ER ---
Nurse's Notes [facility] Name: Eliu Schuler Age: 59 yrs Sex: Male : 1960 Arrival Date: 04/30/2020 Time: 13:22 Bed Waiting Private MD: Diagnosis: Presentation: 04/30 13:34 Chief complaint: Patient states: Had bursa sack removed last week by Ta. Had ll1 stitches removed Wednesday. After site started to get red, swollen, and draining yellow pus. Site is hot to touch. No fever at home. Coronavirus screen: Client denies travel out of the [place] in the last 14 days. At this time, the client does not indicate any symptoms associated with coronavirus-19. Ebola Screen: Patient denies travel to an Ebola-affected area in the 21 days before illness onset. Initial Sepsis Screen: Does the patient meet any 2 criteria? No. Patient's initial sepsis screen is negative. Does the patient have a suspected source of infection? Yes: Bone or joint infection. Risk Assessment: Do you want to hurt yourself or someone else? Patient reports no desire to harm self or others. Onset of symptoms was April 26, 2020. 13:34 Method Of Arrival: Ambulatory ll1 13:34 Acuity: ROMEL 3 ll1 Triage Assessment: 13:39 General: Appears uncomfortable, Behavior is calm, cooperative, appropriate for age. ll1 Pain: Complains of pain in R elbow Quality of pain is described as aching, Aggravated by increased activity. Derm: Wound noted R elbow Wound is <3 cm surgical wound. Draining yellow pus. Hot to touch. No known fever. Reports wound draining pus, hot to touch. Historical: - Allergies: 13:38 No Known Allergies; ll1 - PMHx: 13:38 COPD; GERD; Bipolar disorder; Hypertension; CVA; ll1 - PSHx: 13:38 Cholecystectomy; bursa removed, R shoulder; Hernia repair; ll1 - Immunization history:: Flu vaccine is up to date. - Social history:: Smoking status: Patient reports the use of cigarette tobacco products, smokes one-half pack cigarettes per day. Vital Signs: 13:34 BP 136 / 99; Pulse 84; Resp 18; Temp 98.7; Pulse Ox 99% ; Weight 106.59 kg; Height 5 ll1 ft. 11 in. (180.34 cm); Pain 7/10; 13:34 Body Mass Index 32.78 (106.59 kg, 180.34 cm) ll1 ED Course: 13:22 Patient arrived in ED. ds1 13:37 Triage completed. ll1 13:38 Arm band placed on. ll1 Administered Medications: No medications were administered Outcome: 19:16 Patient left the ED. ll1 Signatures: Georgina Sandra ds1 Luis Enrique Lopez, RN RN ll1
[2020-04-30 19:22] VITALS: BP 136/99; TEMP 98.7; O2SAT 99
== END 2020-04-30 19:16 | disposition left against medical advice (07) ==
LOC: ER 13:17
DX: Z02.9 Encounter for administrative examinations, unspecified (principal)
CPT/HCPCS: 99281

== ENCOUNTER 2021-04-20 14:04 | Emergency (ER) | payer MEDICARE, OTHER ==
--- OUTSIDE RECORDS SUMMARY | 2021-04-20 14:08 | XMS REPORT | Continuity of Care Document ---
:1960 Author Organization [facility] t Address [address] [place] [address] Care Team Providers Name Role Phone JAIME CHAPPELL Attending Clinician Unavailable Miller_S_AH Attending Clinician Unavailable Darrylo_A_AH Attending Clinician Unavailable Jaime Chappell MD Attending Clinician Doctor Unassigned, Name Attending Clinician Unavailable Pob, Lab Main Attending Clinician Unavailable Only, Test Attending Clinician Unavailable Camdenu_P Attending Clinician Unavailable JAIME CHAPPELL Admitting Clinician Unavailable Jose_S_MARJAN Admitting Clinician Unavailable Darrylo_A_AH Admitting Clinician Unavailable Jaime Chappell MD Admitting Clinician Erick_Alie Admitting Clinician Unavailable Payers Payer Name Policy Type Policy Number Effective Date Expiration Date Mynor miller [employer] [place] [id number] 2020 CLASSIC/VALUE 00:00:00 [facility] [id number] 2021 (MEDICARE 00:00:00 REPLACEMENT HMO) [place] OF [place] - [id number] [place] (MEDICARE 00:00:00 REPLACEMENT/ADVANT[place] GE - HMO) Problems Condition Condition Condition Status Onset Resolution Last Treating Co mments Source Name Details Category Date Date Treatment Clinician Date Abscess Abscess Problem Active [place] 4[place]22 Family 00:00: Practic 00 e Cigarette Cigarette Problem Active Leila sam smoker Smoker 4-19 Family 00:00: Practic 00 e Hearing Hearing Problem Active [place] loss Loss 4-19 Family 00:00: Practic 00 e Major Major Problem Active [place] depressive Depressive 4-19 Beth pollack disorder Disorder 00:00: Practi c 00 e Seasonal Seasonal Problem Active [place] allergy Allergy 4-19 Family 00:00: Practic 00 e Bipolar Bipolar Problem Active [facility] disorder Disorder 4-15 Family 00:00: Practic 00 e Insomnia Insomnia Problem Active [place] 1-01 Family 00:00: Practic 00 e Essential Essential Problem Active Leila sam hypertensi Hypertensi 1- Beth pollack on on 00:00: Practic 00 e Peripheral Peripheral Problem Active [place] vascular Vascular 1- Family disease Disease 00:00: Practic 00 e Chronic Chronic Problem Active [facility] obstructiv Obstructiv 02-15 Beth pollack e lung e Lung 00:00: Practic disease Disease 00 e Gastroesop Gastroesop Problem Active [place] hageal hageal 02-15 Family reflux Reflux 00:00: Practic disease Disease 00 e Benign Benign Problem Active [facility] prostatic Prostatic 02-15 Fami ly hyperplasi Hyperplasi 00:00: Pr actic a a 00 e Chronic Chronic Problem Active [facility] back pain Back Pain 02-15 Fami ly 00:00: Practic 00 e Allergies, Adverse Reactions, Alerts Allergy Allergy Status Severity Reaction(s) Onset Inactive Treating Comm ents Source Name Type Date Date Clinician NO KNOWN Drug Active [facility] ALLERGIE Class ity of [facility] Social History Social Habit Start Date Stop Date Quantity Comments Source [facility] Tobacco use and 2020-03-19 2020-03-19 Never used Universit y of exposure 00:00:00 00:00:00 [facility] Tobacco Comment 2020-03-19 2020-03-19 planning on [facility] ty of 00:00:00 00:00:00 quitting [facility] Smoking Status Start Date Stop Date Source Light [facility] Unknown if ever smoked [facility] Former smoker 2020-03-19 00:00:00 2020-03-19 00:00:00 [facility] Medications Ordered Filled Start Stop Current Ordering Indication Dosage Frequency Signature Comments Components Source Medication Medication Date Date Medication? Clinician (SIG) Name Name omeprazole 2020- No 20mg Take 20 mg Univers 20 mg 2-03 02-03 by mouth ity of capsule 19:05: 00:00 daily. [place] : Medical Branch traZODone 2020- No 100mg Take 100 Un tom 100 mg 03-20-03 mg by ity of tablet 19:05: 00:00 mouth at [place] 19 :00 bedtime. Medical Branch Lamotrigine 2020- No 200mg Take 200 Univers 200 mg 03-20-03 mg by ity of tablet 19:05: 00:00 mouth 2 [place] 19 :00 (two) Medical times Branch daily. 1/2 tab PO BID fluticasone 2020- No 1{spray Use 1 U nivers propionate 03-20 } [place] in ity of 50 19:05: 00:00 each [place] mcg/actuati :00 nostril Medic al on nasal daily. 1 Branch spray spray each nostril lisinopriL 2020- No 10mg Take 10 mg Univers 10 mg 03-20-03 by mouth ity of tablet 19:05: 00:00 daily. [place] : Medical Branch metoprolol 2020- No 50mg Take 50 mg Univers tartrate 50 03-20-03 by mouth 2 i ty of mg tablet 19:05: 00:00 (two) [place] 19 :00 times Medical daily. Branch Multivit-Ir 2020- No Take by U andres on-Min-FA-L 03-20 mouth. ity o f utein 19:05: 00:00 [place] (CERTA 19 :00 Medical PLUS) Branch 18-0.4-250 mg-mg-mcg Tab cetirizine 2020- No 10mg Take 10 mg Univers (ZYRTEC) 10 03-20-03 by mouth ity of mg tablet 19:05: 00:00 daily. [place] 19 :00 Medical Branch albuterol 2020- No 2{puff} Inhale 2 Univers 90 03-20-03 Puffs ity of mcg/actuati 19:05: 00:00 every 6 [place] inhaler 19 :00 (six) Medical hours as Branch needed for Wheezing or Shortness of Breath. gabapentin 2020- No 300mg Take 300 U nivers ER 300 mg 03-20-03 mg by ity of tablet, 19:05: 00:00 mouth [place] extended 19 :00 daily. 300 Medic al release 24 mg in 3 Branch hr divided doses azelastine- 2020- No 137ug Use 137 U nivers fluticasone 2- 02-03 mcg in ity o f 137-50 19:05: 00:00 each [place] mcg/spray 19 :00 nostril 2 Medic al nasal spray (two) Branch times daily. Carboxymeth 2020- No .5[PFU] Place 0.5 Univers ylcellulose 2-04 16-03 /d PFU/day in i ty of Sodium 0.5 19:05: 00:00 each eye 6 [place] % Drop 19 :00 (six) Medical times Branch daily. budesonide- 2020- No 2{puff} Inhale 2 Univers formoteroL 2 02-03 Puffs 2 ity o f 80-4.5 19:05: 00:00 (two) [place] mcg/actuati 19 :00 times Medical on inhaler daily. Branch tiotropium 2020- No 2{puff} Inhale 2 Univers bromide 2 02-03 Puffs ity of (SPIRIVA 19:05: 00:00 daily. [place] RESPIMAT) 19 :00 Medical 2.5 Branch mcg/actuati on Mist sildenafiL 2020- No 50mg Take 50 mg Univers 100 mg 2-03 by mouth. ity of tablet 19:05: 00:00 [place] 19 :00 Medical Branch ARIPiprazol 2020- No 5mg Take 5 mg Univers e 5 mg 03-20-03 by mouth ity of tablet 19:05: 00:00 daily. [place] 19 :00 Medical Branch FENTanyl PF Yes 25ug 25 mcg, Uni vers (SUBLIMAZE 2-03 Slow IV ity of (PF)) 17:42: Push, [place] injection 27 Q5MIN PRN, Medi chau 25 mcg 4 doses, Branch Starting Wed03/20/20 at 1142, Until Discontinu ed, Routine, Pain (scale 4-6), PACU dexamethaso Yes 4mg 4 mg, Slow Univers ne 2-03 IV Push, ity of (DECADRON 17:42: PRN, 1 [place] PHOSPHATE) 27 dose, Medical injection 4 Starting Bran ch mg Wed03/20/20 at 1142, Until Discontinu ed, Routine, Nausea and Vomiting (N/V), PACU sodium 0 Yes PRN, Univers chloride 2-03 Starting ity of 0.9 % 16:54: Wed03/20/20 [place] irrigation 00 at 1054, Medic al solution Until Branch Discontinu ed, Intra-op lactated 2020- No 1000mL at 42 Unive rs ringers IV 2-03 02-03 mL/hr, ity of infusion 15:15: 15:10 1,000 mL, [place] as 1,000 mL 00 :00 IV Medical Infusion, Branch ONCE, 1 dose, Wed03/20/20 at 0915, Routine, DSU Pre-op No known No Univers medications ity of [facility] albuterol albuterol No 2puff(s Q4H albuterol [facility] sulf 90 sulf 90 ) sulf 90 Family mcg/actuati mcg/actuati mcg/actuat Practic on breath on breath ion breath e activated activated activated powder powder powder inhaler,sen inhaler,sen inhaler,se sor Inhale sor Inhale nsor 2 puffs 2 puffs Inhale 2 every 4 every 4 puffs hours by hours by every 4 inhalation inhalation hours by route. route. inhalation route. aripiprazol aripiprazol No 1 Q1D aripiprazo [facility] e 5 mg e 5 mg le 5 mg Family tablet Take tablet Take tablet Practic 1 tablet 1 tablet Take 1 e every day every day tablet by oral by oral every day route. route. by oral route. azelastine azelastine No 2spray( BID azelastine [facility] 137 mcg 137 mcg s) 137 mcg Family (0.1 %) (0.1 %) (0.1 %) Practi c nasal spray nasal spray nasal e aerosol aerosol spray [place] 2 [place] 2 aerosol sprays sprays [place] 2 twice a day twice a day sprays by by twice a intranasal intranasal day by route. route. intranasal route. budesonide budesonide No 1puff(s BID budesonide [facility] 180 180 ) 180 Family mcg/actuati mcg/actuati [...] bid cetirizine cetirizine No 1mg Q1D cetirizine [facility] 10 mg 10 mg 10 mg Family capsule capsule capsule Practi c Take 1 mg Take 1 mg Take 1 mg e every day every day every day by oral by oral by oral route. route. route. cyclobenzap cyclobenzap No 1 TID cyclobenza [facility] rine 10 mg rine 10 mg mary 10 Family tablet Take tablet Take mg tablet Practic 1 tablet 3 1 tablet 3 Take 1 e times a day times a day tablet 3 by oral by oral times a route. route. day by oral route. gabapentin gabapentin No 1capsul TID gabapentin [facility] 300 mg 300 mg e(s) 300 mg Family capsule capsule capsule Practi c Take 1 Take 1 Take 1 e capsule 3 capsule 3 capsule 3 times a day times a day times a by oral by oral day by route. route. oral route. lamotrigine lamotrigine No 1 BID lamotrigin [facility] 200 mg 200 mg e 200 mg Family tablet Take tablet Take tablet Practic 1 tablet 1 tablet Take 1 e twice a day twice a day tablet by oral by oral twice a route. route. day by oral route. lisinopril lisinopril No 1 Q1D lisinopril [facility] 10 mg 10 mg 10 mg Family tablet Take tablet Take tablet Practic 1 tablet 1 tablet Take 1 e every day every day tablet by oral by oral every day route. route. by oral route. metoprolol metoprolol No 1 BID metoprolol [facility] tartrate 25 tartrate 25 tartrate Family mg tablet mg tablet 25 mg Prac tic Take 1 Take 1 tablet e tablet tablet Take 1 twice a day twice a day tablet by oral by oral twice a route. route. day by oral route. omeprazole omeprazole No 1capsul BID omeprazole [facility] 20 mg 20 mg e(s) 20 mg Family capsule,del capsule,del capsule,de Practic ayed ayed layed e release release release Take 1 Take 1 Take 1 capsule capsule capsule twice a day twice a day twice a by oral by oral day by route. route. oral route. tiotropium tiotropium No 2puff(s Q1D tiotropium [facility] 2.5 2.5 ) 2.5 Family mcg-olodate mcg-olodate mcg-olodat Practic rol 2.5 rol 2.5 marla 2.5 e mcg/actuati mcg/actuati mcg/actuat on mist for on mist for ion mist inhalation inhalation for Inhale 2 Inhale 2 inhalation puffs every puffs every Inhale 2 day by day by puffs inhalation inhalation every day route. route. by inhalation route. trazodone trazodone No 1 Q1D trazodone [facility] 100 mg 100 mg 100 mg Family tablet Take tablet Take tablet Practic 1 tablet 1 tablet Take 1 e every day every day tablet by oral by oral every day route. route. by oral route. Immunizations Ordered Immunization Filled Immunization Date Status Commen ts Source Name Name influenza, influenza, 2019-11-16 Completed [facility] injectable, injectable, 00:00:00 Practice quadrivalent quadrivalent Vital Signs Vital Name Observation Time Observation Value Comments Source BP Diastolic 2020-06-03 00:00:00 80 mm[Hg] [facility] Height 2020-06-03 00:00:00 71 [in_i] [facility] BMI (Body Mass 2020-06-03 00:00:00 32.8 kg/m2 [facility] Index) Practice BP Systolic 2020-06-03 00:00:00 140 mm[Hg] [facility] Body Weight 2020-06-03 00:00:00 235 [lb_av] [facility] Systolic blood 2020-03-20 18:46:00 166 mm[Hg] Univer sity of pressure [facility] Diastolic blood 2020-03-20 18:46:00 101 mm[Hg] Unive rsity of pressure [facility] Heart rate 2020-03-20 18:46:00 90 /min [facility] Respiratory rate 2020-03-20 18:46:00 16 /min Univ ersity of [facility] Oxygen saturation in 2020-03-20 18:46:00 95 /min University of Arterial blood by [facility] Pulse oximetry Branch Body temperature 2020-03-20 17:53:00 36.22 Caro [facility] [place] [facility] ersity [facility] [place] [facility] Body height 2020-03-19 18:00:00 180.3 cm Universi ty [facility] [place] [facility] Body weight 2020-03-19 18:00:00 107.956 kg Universi ty [facility] [place] [facility] BMI 2020-03-19 18:00:00 33.19 kg/m2 Universi ty of [facility] Branch Systolic blood 2020-03-20 18:46:00 166 mm[Hg] Univer sity of [facility] Diastolic blood 2020-03-20 18:46:00 101 mm[Hg] [facility] Heart rate 2020-03-20 18:46:00 90 /min Universi ty [facility] [place] [facility] Respiratory rate 2020-03-20 18:46:00 16 /min [facility] [place] [facility] ersity of [facility] Oxygen saturation in 2020-03-20 18:46:00 95 /min University of Arterial blood by [facility] Pulse oximetry Branch Body temperature 2020-03-20 17:53:00 36.22 Caro [facility] [place] [facility] ersity of [facility] Body height 2020-03-19 18:00:00 180.3 cm [facility]i [facility] [place] [facility] Body weight 2020-03-19 18:00:00 107.956 kg [facility]i [facility] [place] [facility] BMI 2020-03-19 18:00:00 33.19 kg/m2 Universi ty of [facility] Branch Height 2019-05-31 00:00:00 71 [in_i] [facility] BMI (Body Mass 2019-05-31 00:00:00 6.4 kg/m2 [facility] [facility] Index) Practice Body Weight 2019-05-31 00:00:00 46 [lb_av] [facility] Procedures Procedure Date / Time Performing Clinician Source Performed DAY SURGERY - ADC 2020-03-20 06:01:00 Doctor Unassigned, [facility] [place] [facility] CONSENT/REFUSAL FOR 2020-03-18 17:27:35 Doctor Unassigned, Roberto Carlos [facility] DIAGNOSIS AND TREATMENT [place] [facility] ASSIGNMENT OF BENEFITS 2020-03-18 17:27:18 [facility] [place] [facility] NOTICE OF BILLING 2020-03-18 17:26:59 Doctor Unassigned, [facility] PRACTICES FOR MEDICARE [place] [facility] PATIENTS [facility] PATIENT FINANCIAL 2020-03-18 17:26:41 [facility] [place] [facility] NO SHOW OR MISSED 2020-03-18 17:25:55 Doctor Unassigned, [facility] APPOINTMENT POLICY [place] [facility] ACKNOWLEDGEMENT NOTICE OF PRIVACY 2020-03-18 17:25:30 Doctor Unassigned, [facility] PRACTICES [place] [facility] CONSENT/REFUSAL FOR 2020-03-18 17:25:11 Doctor Unassigned, Roberto Carlos [facility] DIAGNOSIS AND TREATMENT [place] [facility] ASSIGNMENT OF BENEFITS 2020-03-18 17:24:52 Doctor Unassigned, [facility] [place] [facility] Lumbar Spine Fusion [facility] Fami ly Practice Encounters Start End Encounter Admission Attending Care Care Encounter Source Date/Time Date/Time Type Type Clinicians Facility Department ID 2020-12-14 Outpatient Nishi CHAPPELL [facility] [id number] [facility] 20:58:54 JOSE DAVID [facility] 2020-12-12 2020-12-12 Outpatient DMG DMG [id number] [facility] 08:04:00 08:04:00 1028 Medica l Group 2020-07-26 2020-07-26 Outpatient Miller_S_AH VFP VFP [id number] [facility] 01:52:00 01:52:00 [id number] Family Practic e 2020-06-19 2020-06-19 Outpatient Nicholas-Mbayo VFP VFP [id number] [facility] 05:43:00 05:43:00 _A_AH [id number] Family Practic e 2020-06-06 2020-06-06 Outpatient Nicholas-Mbayo VFP VFP [id number] [facility] 03:37:00 03:37:00 _A_AH [id number] Family Practic e 2020-06-05 2020-06-05 Outpatient Nicholas-Mbayo VFP VFP [id number] [facility] 09:43:00 09:43:00 _A_AH [id number] Family Practic e 2020-06-03 2020-06-03 Outpatient Keron VFP VFP [id number] [facility] 12:51:00 12:51:00 _A_AH [id number] Family Practic e 2020-06-03 2020-06-03 Jaja VFP [place] - [id number] [place] 00:00:00 00:00:00 Darryl Hendrickson Fam mana peters SLIP COVER ESTIMATOR: Medical - Practi c [address] [email or web address]_ [email or web address] [facility], [address] [place] [address], [place] [address] , Ph. 2020-03-20 2020-03-20 [facility] [id number] Univers 08:34:00 13:05:00 Encounter Jose David Olivera [id number] ity of [place] [facility] [id number] [facility] 020 Branch 2020-03-20 2020-03-20 [facility] [id number] 08:34:00 13:05:00 Encounter Jose David Olivera [id number] [place] [id number] Surgical [id number] [place] [address] 2020-03-20 2020-03-20 Orders Doctor WENDY [id number] Univers 00:00:00 00:00:00 Only Unassigned, HARRISON [id number] ity of [place] [facility] 4.2.7.2.686 [place] [id number] [facility] 009 Branch 2020-03-20 2020-03-20 Orders Doctor WENDY [id number] 00:00:00 00:00:00 Only Unassigned, [place] [id number] [facility] 4.2.7.2.686 [id number] 2020-03-18 2020-03-18 Outpatient R [facility] [id number] [facility] 12:15:00 12:15:00 [id number] ity [facility] 2020-03-18 2020-03-18 Pc Tech Lovely, [facility] Lab Main [facility] 1.2.8 40.114 [id number] Univers 11:40:03 11:55:03 Visit Jose David Chappell 350.1. 13.10 ity of [place] [facility] [id number] [place] [address] 2020-03-18 2020-03-18 Pc Tech Lovely, [facility] 1.2.840.114 [id number] 11:40:03 11:55:03 Visit Lab Main Jarod [id number] [place] 4.2.7.2.686 Professio [id number] [address] 2020-03-18 2020-03-18 Laboratory Only, [facility] Test [facility] 1.2.840. 114 [id number] Univers 11:39:37 11:54:37 Only Jose David Chappell 350.1. 13.10 ity of [place] [id number] [address] 2020-03-18 2020-03-18 Laboratory Only, [facility] 1.2.840.114 [id number] 11:39:37 11:54:37 Only Test Jarod [id number] [place] 4.2.7.2.686 [place] [id number] [facility] 2020-03-18 2020-03-18 Outpatient Nishi CHAPPELL [facility] [id number] Univers 11:45:00 11:45:00 JOSE DAVID [facility] 2019-08-04 2019-08-04 Outpatient Nicholas-Mbayo VFP VF [id number] [facility] 04:54:00 04:54:00 _A_AH [id number] Family Practic e 2019-07-17 2019-07-17 Outpatient Nicholas-Mbkrystleo VFP VFP [id number] 07:30:00 07:30:00 _A_AH [id number] Family Practic e 2019-07-03 2019-07-03 Outpatient Nicholas-Mbayo VFP VFP [id number] [facility] 03:42:00 03:42:00 _A_AH [id number] Family Practic e 2019-05-31 2019-05-31 Jaja VFP [place] - [id number] [place] 00:00:00 00:00:00 NicholasVan [facility] Fam mana peters, SLIP COVER ESTIMATOR: Medical - Practi c [address] [email or web address] [facility], [address] [place] [address], [place] [address] , Ph. 2019-05-10 2019-05-10 Outpatient Raju_P [facility]G [facility] [id number] [place] 03:37:00 03:37:00 0325 [facility] 2019-04-05 2019-04-05 Outpatient Keron VFP VFP [id number] [facility] 07:21:00 07:21:00 _A_AH [id number] Family Practic e 2019-04-05 2019-04-05 Outpatient Keron VFP VFP [id number] [facility] 07:21:00 07:21:00 _A_AH [id number] Family Practic e Results This patient has no known results.
[2021-04-20] MEDS ORDERED: MORPHINE 4 MG/ML SYR ONE (14:30)
[2021-04-20] MEDS ORDERED: ONDANSETRON 4 MG/2 ML VIAL ONE (14:31)
[2021-04-20 14:55] LABS: Lymphocytes % 22.3 % (15.3-44.8); MPV 8.5 fL (7.6-11.3); RBC Red Blood Cell Count 4.21 M/uL (4.33-5.43)
[2021-04-20 15:09] LABS: Bilirubin Direct 0.1 mg/dL (0-0.2); Bilirubin Total 0.5 mg/dL (0.2-1.0); Protein, Total 7.7 g/dL (6.4-8.2)
[2021-04-20 15:28] LABS: SARS-COV-2 RT PCR NEGATIVE (NEGATIVE)
--- NOTE | 2021-04-20 17:57 | RAD REPORT ---
EXAM DESCRIPTION: CT - Abdomen Pelvis W Contrast - 04/20/2021 4:14 pm CLINICAL HISTORY: ABD PAIN COMPARISON: CT study June 2008 TECHNIQUE: Biphasic, helical CT imaging of the abdomen and pelvis was performed following 100 ml non -ionic IV contrast. Oral contrast was given. All CT scans are performed using dose optimization technique as appropriate and may include automated exposure control or mA/KV adjustment according to patient size. FINDINGS: No suspicious findings in the lung bases. Liver shows diffuse fatty infiltration pattern with no focal liver lesion. No portal vein abnormality . Nodular capsule contour is present. No splenomegaly or focal splenic finding. No pancreatic abnorma lity seen. Cholecystectomy clips are present. No biliary tree dilatation. Symmetric renal function is seen with no hydronephrosis or suspicious renal mass. Nonobstructing 10 m m calyx or parenchymal calcification lateral mid right kidney. No pyelonephritis or acute parenchymal process. No bladder abnormalities. No adrenal abnormalities. No gastric dilatation or gastric wall thickening. No small bowel abnormalities are present. No append icitis findings. There is moderate stool volume in the right-side and transverse colon. Moderate desc ending and advanced sigmoid diverticulosis without acute diverticulitis. Thickening of the sigmoid co shagufta singer may be chronic affects of diverticulosis. Mucosal level diverticulitis or inflammatory archer ge is possible. There is no inflammatory stranding in the fat adjacent to the sigmoid colon. No free air, free fluid or inflammatory stranding. No mass or bulky lymphadenopathy. Small bilater al fat filled inguinal hernias are present. No suspicious bony findings. Disc and bone degenerative changes are present throughout all lumbar dis c levels. IMPRESSION: Contrast enhanced CT abdomen and pelvis showing no emergent finding. Patient has prominent left-sided diverticulosis but no acute diverticulitis findings. Diffuse fatty infiltration of the liver with liver capsule nodularity concerning for cirrhosis or dif fuse hepatic parenchymal disease.
--- NOTE | 2021-04-20 18:25 | ER ---
Nurse's Notes [facility] Name: Eliu Schuler Age: 60 yrs Sex: Male : 1960 Arrival Date: 04/20/2021 Time: 14:08 Bed 19 Private MD: Glynn Stone Diagnosis: Abdominal pain, unspecified;Diverticulosis of intestine, part unspecified, without perforation or abscess without bleeding;Bilateral inguinal hernia, without obstruction or gangrene, not specified as recurrent Presentation: 04/20 14:19 Chief complaint: Patient states: ABD pain and difficulty breathing since yesterday vg1 afternoon. Pt also states cough and congestion. States 'all over' ABD pain that is constant. Coronavirus screen: Vaccine status: Patient reports receiving the 2nd dose of the covid vaccine. Client denies travel out of the [place] in the last 14 days. Ebola Screen: Patient negative for fever greater than or equal to 101.5 degrees Fahrenheit, and additional compatible Ebola Virus Disease symptoms. Initial Sepsis Screen: Does the patient meet any 2 criteria? RR > 20 per min. HR > 90 bpm. Yes Does the patient have a suspected source of infection? No. Patient's initial sepsis screen is negative. Risk Assessment: Do you want to hurt yourself or someone else? Patient reports no desire to harm self or others. Onset of symptoms was April 19, 2021. 14:19 Method Of Arrival: Ambulatory vg1 14:19 Acuity: ROMEL 3 vg1 Triage Assessment: 14:21 General: Appears in no apparent distress. uncomfortable, Behavior is calm, cooperative. vg1 Pain: Complains of pain in abdomen Pain currently is 10 out of 10 on a pain scale. GI: Abdomen is round obese, Last BM was April 19, 2021. Historical: - Allergies: 14:21 No Known Allergies; vg1 - PMHx: 14:21 Bipolar disorder; COPD; CVA; GERD; Hypertension; vg1 - PSHx: 14: Cholecystectomy; R Elbow; R shoulder; vg1 - Immunization history:: Client reports receiving the 2nd dose of the Covid vaccine. - Social history:: Smoking status: Patient reports the use of cigarette tobacco products, smokes one pack cigarettes per day. - Family history:: not pertinent. - Hospitalizations: : No recent hospitalization is reported. Screenin:22 Abuse screen: Denies threats or abuse. jh6 14:22 Nutritional screening: No deficits noted. Tuberculosis screening: No symptoms or risk jh6 factors identified. Fall Risk None identified. Assessment: 14:22 General: Appears in no apparent distress. Behavior is calm, cooperative. Pain: jh6 Complains of pain in abdomen Pain currently is 9 out of 10 on a pain scale. Quality of pain is described as dull, gnawing, Pain began suddenly, Is continuous. GI: Bowel sounds present X 4 quads. Abdomen is tender to palpation in epigastric area. 14:42 General: pt able to drink ct contract without complications or nausea. . jh6 15:17 Reassessment: Patient and/or family updated on plan of care and expected duration. Pain jh6 level reassessed. Patient is alert, oriented x 3, equal unlabored respirations, skin warm/dry/pink. states that pain is decreased just feeling pressure. Patient states feeling better. Patient states symptoms have improved. Pain: Pain currently is 2 out of 10 on a pain scale. 16:30 Reassessment: No changes from previously documented assessment. jh6 17:30 Reassessment: No changes from previously documented assessment. Patient and/or family jh6 updated on plan of care and expected duration. Pain level reassessed. Patient states feeling better. Pain: Complains of pain in epigastric area, right upper quadrant, left upper quadrant and abdomen diffusely. 18:30 Reassessment: No changes from previously documented assessment. Patient and/or family jh6 updated on plan of care and expected duration. Pain level reassessed. pt states that pain is still decreased and feels mainly pressure. 18:49 Reassessment: pt reported that he has taken antibiotics prior without reaction. jh6 Vital Signs: 14:19 BP 146 / 104; Pulse 108; Resp 22; Temp 99.5(T); Pulse Ox 95% on R/A; Weight 110.22 kg; vg1 Height 5 ft. 11 in. (180.34 cm); Pain 10/10; 15:18 BP 141 / 90; Pulse 99; Resp 20; Pulse Ox 99% ; jh6 15:53 BP 141 / 91; Pulse 99; Resp 15; Pulse Ox 99% ; jl7 17:30 BP 156 / 100; Pulse 90; Resp 18; Pulse Ox 98% ; Pain 2/10; jh6 18:40 BP 154 / 89; Pulse 86; Resp 18; Pulse Ox 100% ; jh6 14:19 Body Mass Index 33.89 (110.22 kg, 180.34 cm) vg1 ED Course: 14:08 Patient arrived in ED. am2 14:08 Glynn Stone DO is Private Physician. am2 14:13 Rony Cohen MD is Attending Physician. rn 14:13 Rohini Traylor, SIRIA is Primary Nurse. jh6 14:21 Triage completed. vg1 14:21 Arm band placed on. vg1 14:22 Inserted saline lock: 20 gauge in left antecubital area, using aseptic technique. Blood jh6 collected. 14:22 Patient has correct armband on for positive identification. Placed in gown. Call light jh6 in reach. Side rails up X 1. Adult w/ patient. 16:14 CT Abd/Pelvis - PO and IV Contrast In Process Unspecified. EDMS 18:24 Jas Frankel MD is Referral Physician. rn 18:45 IV discontinued, intact, bleeding controlled, No redness/swelling at site. Pressure jh6 dressing applied. Administered Medications: 14:35 Drug: Zofran (Ondansetron) 4 mg Route: IVP; Site: left antecubital; jh6 14:35 Drug: morphine 4 mg Route: IVP; Site: left antecubital; jh6 18:45 Drug: Cipro (ciprofloxacin) 500 mg Route: PO; jh6 18:45 Drug: metroNIDAZOLE 500 mg Route: PO; 6 Outcome: 18:25 Discharge ordered by . rn 18:48 Discharged to home ambulatory. jh6 18:48 Condition: improved 18:48 Condition: improved 18:48 Discharge instructions given to patient, family, Instructed on discharge instructions, follow up and referral plans. Demonstrated understanding of instructions, follow-up care, medications, Prescriptions given X 4. 18:50 Patient left the ED. 6 Signatures: Dispatcher [employer] EDOK Rony Cohen MD MD rn Leal, Jahala RN RN jl7 Puja Donnelly am2 Vanessa Michelle, RN RN vg1 Rohini Traylor RN RN 6
--- NOTE | 2021-04-20 18:25 | EDPHYS ---
Physician Documentation [facility] Name: Eliu Schuler Age: 60 yrs Sex: Male : 1960 Arrival Date: 04/20/2021 Time: 14:08 Bed 19 Private MD: Glynn Stone ED Physician Rony Cohen HPI: 04/20 14:52 This 60 yrs old Male presents to ER via Ambulatory with complaints of Abdominal Pain. rn 14:52 The patient presents with abdominal pain that is diffuse. Onset: The symptoms/episode rn began/occurred yesterday. The symptoms do not radiate. Associated signs and symptoms: Pertinent negatives: nausea and vomiting, blood in stools, chest pain, dysuria, fever, hematuria, testicular pain, vomiting, vomiting blood. The symptoms are described as sharp, stabbing. Modifying factors: The symptoms are alleviated by nothing, the symptoms are aggravated by touching the area. Severity of pain: At its worst the pain was moderate in the emergency department the pain is unchanged. The patient has experienced similar episodes in the past. The patient has not recently seen a physician. Pt reports 1 day of diffuse abd pain, not assoc with fever/chills/chest pain/nausea/vomiting/diarrhea. Denies blood in stool. No trauma. Reports cholecystectomy in past and has umbilical hernia. Had normal bowel movement yesterday.. Historical: - Allergies: 14:21 No Known Allergies; vg1 - PMHx: 14:21 Bipolar disorder; COPD; CVA; GERD; Hypertension; vg1 - PSHx: 14:21 Cholecystectomy; R Elbow; R shoulder; vg1 - Immunization history:: Client reports receiving the 2nd dose of the Covid vaccine. - Social history:: Smoking status: Patient reports the use of cigarette tobacco products, smokes one pack cigarettes per day. - Family history:: not pertinent. - Hospitalizations: : No recent hospitalization is reported. ROS: 14:52 Constitutional: Negative for fever, chills, and weight loss, Eyes: Negative for injury, rn pain, redness, and discharge, Neck: Negative for injury, pain, and swelling, Cardiovascular: Negative for chest pain, palpitations, and edema, Respiratory: Negative for wheezing, and pleuritic chest pain, Abdomen/GI: Negative for nausea, vomiting, diarrhea, and constipation, Back: Negative for injury and pain, : Negative for injury, bleeding, discharge, and swelling, MS/Extremity: Negative for injury and deformity, Skin: Negative for injury, rash, and discoloration, Neuro: Negative for headache, weakness, numbness, tingling, and seizure. Exam: 14:52 Constitutional: Overweight male, sitting in bed, grabbing lower/mid abdomen. rn Head/Face: Normocephalic, atraumatic. Eyes: Periorbital areas with no swelling, redness, or edema. Cardiovascular: Tachycardic, regular. No pulse deficits. Respiratory: + mild tachypnea, no retractions, speaking full sentences Abdomen/GI: soft, + diffuse abd tenderness, no rebound, no skin changes. Skin: Warm, dry MS/ Extremity: Pulses equal, no cyanosis. Neuro: Awake and alert, GCS 15 Vital Signs: 14:19 BP 146 / 104; Pulse 108; Resp 22; Temp 99.5(T); Pulse Ox 95% on R/A; Weight 110.22 kg; vg1 Height 5 ft. 11 in. (180.34 cm); Pain 10/10; 15:18 BP 141 / 90; Pulse 99; Resp 20; Pulse Ox 99% ; jh6 15:53 BP 141 / 91; Pulse 99; Resp 15; Pulse Ox 99% ; jl7 17:30 BP 156 / 100; Pulse 90; Resp 18; Pulse Ox 98% ; Pain 2/10; jh6 18:40 BP 154 / 89; Pulse 86; Resp 18; Pulse Ox 100% ; jh6 14:19 Body Mass Index 33.89 (110.22 kg, 180.34 cm) 1 MDM: 14:13 Patient medically screened. rn 18:20 Differential diagnosis: appendicitis, bowel obstruction, diverticulitis, gastritis, rn gastroesophageal reflux disease, non-specific abd pain, pancreatitis, Peptic Ulcer Disease, Ureterolithiasis. Data reviewed: vital signs, nurses notes, lab test result(s), radiologic studies, CT scan, and as a result, I will discharge patient. Counseling: I had a detailed discussion with the patient and/or guardian regarding: the historical points, exam findings, and any diagnostic results supporting the discharge/admit diagnosis, lab results, radiology results, the need for outpatient follow up, to return to the emergency department if symptoms worsen or persist or if there are any questions or concerns that arise at home. Response to treatment: the patient's symptoms have markedly improved after treatment, and as a result, I will discharge patient. Special discussion: Based on the patient's Hx, exam, and Dx evaluation, there is no indication for emergent surgery or inpatient Tx. It is understood by the patient/guardian that if the Sx's persist or worsen they need to return immediately for re-evaluation. I discussed with the patient/guardian in detail that at this point there is no indication for admission to the hospital. It is understood, however, that if the symptoms persist or worsen the patient needs to return immediately for re-evaluation. Based on the history and exam findings, there is no indication for further emergent testing or inpatient evaluation. I discussed with the patient/guardian the need to see the funeral director/embalmer for further evaluation of the symptoms. I discussed with the patient/guardian the need to see the primary care provider for further evaluation of the symptoms. ED course: Pt improved, ct without acute findings, will treat with abx for possibly early abd infection given low grade fever and abd pain that just began. Return precautions given and understood. . 04/20 14:20 Order name: Basic Metabolic Panel; Complete Time: 15:35 rn 04/20 14:20 Order name: CBC with Diff; Complete Time: 15:35 rn 04/20 14:20 Order name: Hepatic Function; Complete Time: 15:35 rn 04/20 14:20 Order name: Lipase; Complete Time: 15:35 rn 04/20 14:20 Order name: CT Abd/Pelvis - PO and IV Contrast; Complete Time: 18:06 rn 04/20 14:20 Order name: COVID-19/FLU A+B (Document "Date of Onset" if Symptomatic); Complete Time: rn 15:35 04/20 14:20 Order name: IV Saline Lock; Complete Time: 14:23 rn 04/20 14:20 Order name: Labs collected and sent; Complete Time: 14:23 rn Administered Medications: 14:35 Drug: Zofran (Ondansetron) 4 mg Route: IVP; Site: left antecubital; jh6 14:35 Drug: morphine 4 mg Route: IVP; Site: left antecubital; jh6 18:45 Drug: Cipro (ciprofloxacin) 500 mg Route: PO; jh6 18:45 Drug: metroNIDAZOLE 500 mg Route: PO; jh6 Disposition Summary: 04/20/21 18:25 Discharge Ordered Location: Home rn Problem: new rn Symptoms: have improved rn Condition: Stable rn Diagnosis - Abdominal pain, unspecified rn - Diverticulosis of intestine, part unspecified, without perforation or abscess rn without bleeding - Bilateral inguinal hernia, without obstruction or gangrene, not specified as rn recurrent Followup: rn - With: Jas Frankel MD - When: As needed - Reason: Recheck today's complaints, Re-evaluation by your physician Discharge Instructions: - Discharge Summary Sheet rn - Abdominal Pain, Adult rn - Diverticulosis rn - Hernia, Adult rn Forms: - Medication Reconciliation Form rn - Thank You Letter rn - Antibiotic internet retailer - Prescription Opioid Use rn Prescriptions: - ondansetron 4 mg Oral tablet,disintegrating - take 1 tablet by ORAL route every 8 hours As needed; 15 tablet; Refills: 0, rn Product Selection Permitted - Cipro 500 mg Oral Tablet - take 1 tablet by ORAL route every 12 hours for 10 days; 20 tablet; Refills: 0, rn Product Selection Permitted - Flagyl 500 mg Oral Tablet - take 1 tablet by ORAL route every 8 hours for 10 days; 30 tablet; Refills: 0, rn Product Selection Permitted - Tramadol 50 mg Oral Tablet - take 1 tablet by ORAL route every 8 hours as needed; 15 tablet; Refills: 0, rn Product Selection Permitted Signatures: Dispatcher [employer] Rony Lee MD MD rn Marinas, Patrick, BASIN CLEANER BASIN CLEANER [email or web address] Vanessa Michelle, RN RN vg1 Rohini Traylor RN RN jh6
[2021-04-20] MEDS ORDERED: CIPROFLOXACIN HCL 500 MG TAB ONE (18:37)
[2021-04-20] MEDS ORDERED: metroNIDAZOLE 500 MG TABLET ONE (18:37)
[2021-04-20 18:56] VITALS: TEMP 99.5
[2021-04-20 19:01] VITALS: BP 154/89; O2SAT 100
== END 2021-04-20 18:50 | disposition home or self-care (01) ==
LOC: ER 14:04
DX: K57.30 Diverticulosis of large intestine without perforation or abscess without bleeding (principal); K40.20 Bilateral inguinal hernia, without obstruction or gangrene, not specified as recurrent; I10 Essential (primary) hypertension; F17.210 Nicotine dependence, cigarettes, uncomplicated
CPT/HCPCS: 85025; 80048; 36415; 80076; 83690; 0240U; 74177; 96375; 96374; 99284; Q9967; J2405

== ENCOUNTER 2023-09-30 09:43 | Day surgery (SDC) | payer MEDICARE ==
[2023-09-27 11:09] LABS: Absolute Basophils 0.1 K/uL (0-0.5); Absolute Eosinophils 0.3 K/uL (0-0.5); Absolute Monocytes 0.6 K/uL (0.1-1.3); Absolute Neutrophil 5.7 K/uL (1.8-8.0); Basophils % 0.9 % (0-1.3); Eosinophils % 3.2 % (0-4.4); Hematocrit 40.2 % (39.6-49.0); Hemoglobin 13.1 g/dL (13.6-17.9); Lymphocytes % 23.1 % (15.3-44.8); MCH 31.2 pg (27.0-35.0); MCHC 32.6 g/dL (32.0-36.0); MCV 95.7 fL (80-100); MPV 8.1 fL (7.6-11.3); Neutrophils % 65.8 % (41.7-73.7); Platelets 233 thou/uL (152-406); Red Cell Distribution Width 14.8 % (12.1-15.2)
[2023-09-27 11:24] LABS: Anion Gap 5.9 mEq/L (5.0-15.0); Potassium 3.9 mEq/L (3.5-5.1)
[2023-09-27 11:26] LABS: PT Prothrombin Time 11.4 SECONDS (9.4-12.5); PTT, Activated Partial Thromb 33.8 SECONDS (24.3-36.9); Protime INR 1.02
--- NOTE | 2023-09-27 13:44 | EKG ---
Test Date: 2023-09-27 Test Time: 10:57:02 [employer] [place] [employer] Judge: ULISSES MEASUREMENT RESULTS: Intervals: Rate: 81 AR: 184 QRSD: 154 QT: 460 QTc: 534 Marvell: P: 59 AR: 184 QRS: -86 T: 77 INTERPRETIVE STATEMENTS: AV sequential or dual chamber electronic pacemaker Compared to ECG 10/05/2014 10:48:55 Sinus rhythm no longer present Electronically Signed On 09-27-23 13:43:06 CDT by Rolly Zapien
[2023-09-30] MEDS: NA CHLORIDE 0.9% 1,000 ML ONE (10:10)
[2023-09-30] MEDS ORDERED: LIDOCAINE 1% MPF 5 ML VIAL ONE (12:19)
[2023-09-30] MEDS ORDERED: propofoL 200 MG/20 ML VIAL IV ONE (12:19)
[2023-09-30 13:42] VITALS: TEMP 97.5
[2023-09-30 13:44] VITALS: BP 120/73; O2SAT 100
== END 2023-09-30 13:42 | disposition home or self-care (01) ==
LOC: OR 09:43
PROVIDERS: ATTEND Surgery
PROC: 0DBH8ZX Excision of Cecum, Via Natural or Artificial Opening Endoscopic, Diagnostic (ICD-10-PCS; principal; 2023-09-30 12:00)
DX: Z12.11 Encounter for screening for malignant neoplasm of colon (principal); N42.9 Disorder of prostate, unspecified; K57.30 Diverticulosis of large intestine without perforation or abscess without bleeding; K51.90 Ulcerative colitis, unspecified, without complications; K64.4 Residual hemorrhoidal skin tags; K63.3 Ulcer of intestine
CPT/HCPCS: 93005; 85025; 80048; 36415; 85610; 82947; 88305; 85730; 45380; J2704; J2001; J7030

== ENCOUNTER 2023-10-27 10:44 | Day surgery (SDC) | payer MEDICARE ==
[2023-10-27] MEDS ORDERED: NA CHLORIDE 0.9% 1,000 ML ONE (11:04)
[2023-10-27] MEDS ORDERED: propofoL 200 MG/20 ML VIAL IV ONE ×2 (13:17)
[2023-10-27] MEDS ORDERED: LIDOCAINE 1% MPF 5 ML VIAL ONE (13:17)
[2023-10-27 14:42] VITALS: O2SAT 98
[2023-10-27 14:44] VITALS: BP 123/65; TEMP 97.3
== END 2023-10-27 14:35 | disposition home or self-care (01) ==
LOC: OR 10:44
PROVIDERS: ATTEND Surgery
PROC: 0DBC8ZX Excision of Ileocecal Valve, Via Natural or Artificial Opening Endoscopic, Diagnostic (ICD-10-PCS; principal; 2023-10-27 12:45)
DX: Z12.11 Encounter for screening for malignant neoplasm of colon (principal); K57.30 Diverticulosis of large intestine without perforation or abscess without bleeding; K64.8 Other hemorrhoids
CPT/HCPCS: 45380; 82947; 88305; J2704 ×2; J2001; J7030

== ENCOUNTER 2024-06-03 10:49 | Emergency (ER) | payer MEDICARE ==
--- OUTSIDE RECORDS SUMMARY | 2024-06-03 11:00 | XMS REPORT | Continuity of Care Document ---
Author Name Unknown Address [address] [facility] [facility] [facility] [place] [address] [facility] Address [address] 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 Name Role Phone CHANDAN CHAPPELL Attending Clinician Unava ilJennifer Wyatt Attending Clinician Balbina Lugo Attending Clinician Rosio Cano Attending Clinician [phone] Xi Metcalf Attending Clinician Benjamin Akins Attending Clinician UnavailRoxie Larose Cardiology Attending Clinician Unavailable Ariadna Whitman Attending Clinician Gustavo Attending Clinician Unavailable Jeffery_P Attending Clinician Unavailable Albina Cosby Attending Clinician Edenilson Attending Clinician Unavailable Yas Huynh Attending Clinician Adams_R Attending Clinician Unavailable Miller_S_AH Attending Clinician Unavailable Nicholas-Henrryayo_A_AH Attending Clinician Unavailable Chandan Chappell MD Attending Clinician [phone] Doctor Unassigned, [place] Attending Clinician U navailable Pob, [facility] Main Attending Clinician Unavailabl e Only, Adc Test Attending Clinician Unavailable CHANDAN CHAPPELL Admitting Clinician Unava ilBenjamin Mahoney Admitting Clinician Unavailabl e KNOW, DOES_NOT Admitting Clinician Unavailable Ogbechie_L Admitting Clinician Unavailable Champion_P Admitting Clinician Unavailable Deshazo_T Admitting Clinician Unavailable Lino_R Admitting Clinician Unavailable Miller_S_AH Admitting Clinician Unavailable Nicholas-Henrryayo_A_AH Admitting Clinician Unavailable Chandan Chappell MD Admitting Clinician [phone] Payers Payer Name Policy Type Policy Number Effective Date Expirati on Date Source [facility] CLASS[facility]/VALUE [id number] 2020 00:00:00 [facility] (MEDICARE REPLACEMENT HMO) [id number] 2021 00:00:00 [facility] 4 [id number] [facility] - ACTIVE DUTY DEPENDANTS ([place]) [id number] [facility] [facility] - HMO) [id number] 00:00:00 Problems Condition Name Condition Details Condition Category Status Onset Date Resolution Date Last Treatment Date Treating Clinician Comments Source Primary erectile dysfunctio n Primary Erectile Dysfunctio n Problem Active 06-19 00:00: 00 [facility] Abscess Abscess Problem Active 06-06 00:00: 00 [facility] Hearing loss Hearing Loss Problem Active 06-03 00:00: 00 [facility] Cigarette smoker Cigarette Smoker Problem Active 06-03 00:00: 00 [facility] Major depressive disorder Major Depressive Disorder Problem Active 06-03 00:00: 00 [facility] Seasonal allergy Seasonal Allergy Problem Active 06-03 00:00: 00 [facility] Bipolar disorder Bipolar Disorder Problem Active 05-30 00:00: 00 [facility] Insomnia Insomnia Problem Active 02-15 00:00: 00 [facility] Essential hypertensi on Essential Hypertensi on Problem Active 02-15 00:00: 00 [facility] Peripheral vascular disease Peripheral Vascular Disease Problem Active 02-15 00:00: 00 [facility] Chronic obstructiv e lung disease Chronic Obstructiv e Lung Disease Problem Active 02-15 00:00: 00 [facility] Gastroesop hageal reflux disease Gastroesop hageal Reflux Disease Problem Active 02-15 00:00: 00 [facility] Benign prostatic hyperplasi a Benign Prostatic Hyperplasi a Problem Active 02-15 00:00: 00 [facility] Chronic back pain Chronic Back Pain Problem Active 02-15 00:00: 00 [facility] Neuropathy of lower limb (disorder) Neuropathy of lower limb (disorder) Active Problem 05/05/2019 [facility] Problem Active 2019-05-05 22:14:01 Cheri Marie Abnormal breathing (finding) Abnormal breathing (finding) Active Problem 05/05/2019 [facility] Problem Active 2019-05-05 22:14:01 Cheri Marie Cough (finding) Cough (finding) Active Problem 05/05/2019 [facility] Problem Active 2019-05-05 22:14:01 Cheri Marie Hyperlipid emia (disorder) Hyperlipid emia (disorder) Active Problem 05/05/2019 [facility] Problem Active 2019-05-05 22:14:01 hCeri Marie Hypertensi ve disorder, systemic arterial (disorder) Hypertensi ve disorder, systemic arterial (disorder) Active Problem 05/05/2019 [facility] Problem Active 2019-05-05 22:14:01 Cheri Marie Lumbar radiculopa thy (disorder) Lumbar radiculopa thy (disorder) Active Problem 05/05/2019 [facility] Problem Active 2019-05-05 22:14:01 Cheri Marie Morbid obesity (disorder) Morbid obesity (disorder) Active Problem 05/05/2019 [facility] Problem Active 2019-05-05 22:14:01 Cheri Marie Allergies, Adverse Reactions, Alerts Allergy Name Allergy Type Status Severity Reaction(s) Onset Date Inactive Date Treating Clinician Comments Source No Known Allergie s DA Active U 7-02 00:00: 00 [facility] No Known Allergie s DA Active U 4-30 00:00: 00 [facility] No Known Medicati on Allergie s No Known Medicati on Allergie s Active Cheri Marie NO KNOWN ALLERGIE S Drug Class Active [facility] Social History Social Habit Start Date Stop Date Quantity Comments Source Sex Assigned At [facility] Tobacco use and exposure 2020-03-19 00:00:00 2020-03-19 00:00:00 Never used [facility] Tobacco Comment 2020-03-19 00:00:00 2020-03-19 00:00:00 planning on quitting [facility] Social History 2018-11-17 15:32:05 2018-11-17 15:32:05 Williams Marie Smoking Status Start Date Stop Date Source Current Every Day Smoker [facility] Light Tobacco Smoker [facility] Unknown if ever smoked [facility] Former smoker 2020-03-19 00:00:00 2020-03-19 00:00:00 [facility] Medications Ordered Medication Name Filled Medication Name Start Date Stop Date Current Medication? Ordering Clinician Indication Dosage Frequency Signature (SIG) Comments Components Source omeprazole 20 mg capsule 03-20 19:05: 03-20 00:00 :00 No 20mg Take 20 mg by mouth daily. [facility] traZODone 100 mg tablet 03-20 19:05: 03-20 00:00 :00 No 100mg Take 100 mg by mouth at bedtime. [facility] Lamotrigine 200 mg tablet 03-20 19:05: 03-20 00:00 :00 No 200mg Take 200 mg by mouth 2 (two) times daily. 1/2 tab PO BID [facility] lisinopriL 10 mg tablet 03-20 19:05: 19 03-20 00:00 :00 No 10mg Take 10 mg by mouth daily. [facility] Multivit-Ir on-Min-FA-L utein (CERTA PLUS) 18-0.4-250 mg-mg-mcg Tab 03-20:: 03-20 00:00 :00 No Take by mouth. [facility] cetirizine (ZYRTEC) 10 mg tablet 03-20: 03-20 00:00 :00 No 10mg Take 10 mg by mouth daily. [facility] albuterol 90 mcg/actuati on inhaler 03-20 00:00 :00 No 2{puff} Inhale 2 Puffs every 6 (six) hours as needed for Wheezing or Shortness of Breath. [facility] gabapentin ER 300 mg tablet, extended release 24 hr 03-20 00:00 :00 No 300mg Take 300 mg by mouth daily. 300 mg in 3 divided doses [facility] azelastine- fluticasone 137-50 mcg/spray nasal spray 03-20 00:00 :00 No 137ug Use 137 mcg in each nostril 2 (two) times daily. [facility] Carboxymeth ylcellulose Sodium 0.5 % Drop 03-20 00:00 :00 No .5[PFU] /d Place 0.5 PFU/day in each eye 6 (six) times daily. [facility] budesonide- formoteroL 80-4.5 mcg/actuati on inhaler 03-20: 03-20 00:00 :00 No 2{puff} Inhale 2 Puffs 2 (two) times daily. [facility] tiotropium bromide (SPIRIVA RESPIMAT) 2.5 mcg/actuati on Mist 03-20: 03-20 00:00 :00 No 2{puff} Inhale 2 Puffs daily. [facility] sildenafiL 100 mg tablet 03-20:: 19 03-20 00:00 :00 No 50mg Take 50 mg by mouth. [facility] ARIPiprazol e 5 mg tablet 03-20 19:05: 19 03-20 00:00 :00 No 5mg Take 5 mg by mouth daily. [facility] FENTanyl PF (SUBLIMAZE (PF)) injection 25 mcg 03-20 17:42: 27 Yes 25ug 25 mcg, Slow IV Push, Q5MIN PRN, 4 doses, Starting Wed03/20/20 at 1142, Until Discontinu ed, Routine, Pain (scale 4-6), PACU [facility] dexamethaso ne (DECADRON PHOSPHATE) injection 4 mg 03-20 17:42: 27 Yes 4mg 4 mg, Slow IV Push, PRN, 1 dose, Starting Wed03/20/20 at 1142, Until Discontinu ed, Routine, Nausea and Vomiting (N/V), PACU [facility] sodium chloride 0.9 % irrigation solution 03-20 16:54: 00 Yes PRN, Starting Wed03/20/20 at 1054, Until Discontinu ed, Intra-op [facility] lactated ringers IV infusion 1,000 mL 03-20 15:15: 00 03-20 15:10 :00 No 1000mL at 42 mL/hr, 1,000 mL, IV Infusion, ONCE, 1 dose, Wed03/20/20 at 0915, Routine, DSU Pre-op [facility] baclofen 10 mg oral tablet 2018-02 15:05: 00 Yes 10 mg = 1 tab, PO, BID, # 60 tab, 2 Refill(s), Pharmacy: [facility] [id number] Cheri Marie gabapentin 2018-02 14:34: 00 No 300 mg, PO, TID, 0 Refill(s) Cheri Marie Omeprazole 2018-02 14:34: 00 Yes 20 mg, PO, Daily, 0 Refill(s) Cheri Marie Trazodone 2018-02 14:34: 00 Yes 100 mg, PO, Bedtime, 0 Refill(s) Cheri Marie lamotrigine 2018-02 14:34: 00 Yes 200 mg, PO, 0 Refill(s) Cheri Marie fluticasone propionate 2018-02 14:34: 00 Yes 50 microgram, NASAL, Daily, 0 Refill(s) Cheri Marie Lisinopril 2018-02 14:34: 00 Yes 10 mg, PO, Daily, 0 Refill(s) Cheri Marie metoprolol tartrate 2018-02 14:34: 00 Yes 50 mg, PO, Daily, 0 Refill(s) Membella Marie Cetirizine 2018-02 14:34: 00 Yes 10 mg, PO, Daily, 0 Refill(s) Cheri Marie albuterol 90 mcg/inh inhalation aerosol 2018-02 14:34: 00 Yes 2 puff, INHALATION , Q6H, 0 Refill(s) Cheri Marie Azelastine hydrochlori de 0.137 MG/ACTUAT / Fluticasone propionate 0.05 MG/ACTUAT Metered Dose Nasal [place] 2018-02 14:34: 00 Yes 2 spray, NASAL, BID Cheri Marie tiotropium 2018-02 14:34: 00 Yes 18 microgram, INHALATION , Daily, 0 Refill(s) Cheri Marie carboxymeth ylcellulose -sodium hyaluronate topical film 2018-02 14:34: 00 Yes 1 appl, BOTH EYES, QID, 0 Refill(s) Cheri Marie Diclofenac 2018-02 14:34: 00 Yes 75 mg, PO, PRN, 0 Refill(s) Cheri Marie Budesonide 0.08 MG/ACTUAT / formoterol fumarate 0.0045 MG/ACTUAT Metered Dose Inhaler 2018-02 14:34: 00 Yes 2 puff, INHALATION , BID, 0 Refill(s) Cheri Marie albuterol 90 mcg/actuati on aerosol inhaler Inhale by inhalation route. albuterol 90 mcg/actuati on aerosol inhaler Inhale by inhalation route. No albuterol 90 mcg/actuat ion aerosol inhaler Inhale by inhalation route. [facility] Allergy Relief (fluticason e) 50 mcg/actuati on nasal spray,suspe nsion [place] 1 spray every day by intranasal route. Allergy Relief (fluticason e) 50 mcg/actuati on nasal spray,suspe nsion [place] 1 spray every day by intranasal route. No 1spray( s) Q1D Allergy Relief (fluticaso ne) 50 mcg/actuat ion nasal spray,susp ension [place] 1 spray every day by intranasal route. [facility] aspirin 81 mg capsule Take 1 capsule every day by oral route. aspirin 81 mg capsule Take 1 capsule every day by oral route. No 1capsul e(s) Q1D aspirin 81 mg capsule Take 1 capsule every day by oral route. [facility] azelastine- fluticasone 137 mcg-50 mcg/spray nasal spray [place] 1 spray twice a day by intranasal route. azelastine- fluticasone 137 mcg-50 mcg/spray nasal spray [place] 1 spray twice a day by intranasal route. No 1spray( s) BID azelastine -fluticaso ne 137 mcg-50 mcg/spray nasal spray [place] 1 spray twice a day by intranasal route. [facility] Breztri Aerosphere 160 mcg-9mcg-4. 8mcg/actuat ion HFA aerosol inhaler Breztri Aerosphere 160 mcg-9mcg-4. 8mcg/actuat ion HFA aerosol inhaler No Breztri Aerosphere 160 mcg-9mcg-4 .8mcg/actu ation HFA aerosol inhaler [facility] cyclobenzap rine 10 mg tablet Take 1 tablet 3 times a day by oral route. cyclobenzap rine 10 mg tablet Take 1 tablet 3 times a day by oral route. No 1 TID cyclobenza mary 10 mg tablet Take 1 tablet 3 times a day by oral route. [facility] diclofenac sodium 75 mg tablet,homero yed release Take 1 tablet twice a day by oral route. diclofenac sodium 75 mg tablet,homero yed release Take 1 tablet twice a day by oral route. No 1 BID diclofenac sodium 75 mg tablet,del ayed release Take 1 tablet twice a day by oral route. [facility] gabapentin 300 mg capsule Take 1 capsule 3 times a day by oral route. gabapentin 300 mg capsule Take 1 capsule 3 times a day by oral route. No 1capsul e(s) TID gabapentin 300 mg capsule Take 1 capsule 3 times a day by oral route. [facility] hydroxyzine HCl 50 mg tablet Take 1 tablet 4 times a day by oral route. hydroxyzine HCl 50 mg tablet Take 1 tablet 4 times a day by oral route. No 1 QID hydroxyzin e HCl 50 mg tablet Take 1 tablet 4 times a day by oral route. [facility] lamotrigine 200 mg tablet Take 1 tablet twice a day by oral route. lamotrigine 200 mg tablet Take 1 tablet twice a day by oral route. No 1 BID lamotrigin e 200 mg tablet Take 1 tablet twice a day by oral route. [facility] metoprolol tartrate 50 mg tablet Take 1 tablet twice a day by oral route. metoprolol tartrate 50 mg tablet Take 1 tablet twice a day by oral route. No 1 BID metoprolol tartrate 50 mg tablet Take 1 tablet twice a day by oral route. [facility] omeprazole 20 mg capsule,del ayed release Take 1 capsule every day by oral route. omeprazole 20 mg capsule,del ayed release Take 1 capsule every day by oral route. No 1capsul e(s) Q1D omeprazole 20 mg capsule,de layed release Take 1 capsule every day by oral route. [facility] spironolact one 25 mg-hydrochl orothiazide 25 mg tablet spironolact one 25 mg-hydrochl orothiazide 25 mg tablet No spironolac tone 25 mg-hydroch lorothiazi de 25 mg tablet [facility] tamsulosin 0.4 mg capsule tamsulosin 0.4 mg capsule No tamsulosin 0.4 mg capsule [facility] trazodone ER 150 mg tablet,exte nded release 24 hr Take 1 tablet every day by oral route. trazodone ER 150 mg tablet,exte nded release 24 hr Take 1 tablet every day by oral route. No 1 Q1D trazodone ER 150 mg tablet,ext ended release 24 hr Take 1 tablet every day by oral route. [facility] Trelegy Ellipta 200 mcg-62.5 mcg-25 mcg powder for inhalation Trelegy Ellipta 200 mcg-62.5 mcg-25 mcg powder for inhalation No Trelegy Ellipta 200 mcg-62.5 mcg-25 mcg powder for inhalation [facility] albuterol 90 mcg/actuati on aerosol inhaler Inhale by inhalation route. albuterol 90 mcg/actuati on aerosol inhaler Inhale by inhalation route. No albuterol 90 mcg/actuat ion aerosol inhaler Inhale by inhalation route. [facility] Allergy Relief (fluticason e) 50 mcg/actuati on nasal spray,suspe nsion [place] 1 spray every day by intranasal route. Allergy Relief (fluticason e) 50 mcg/actuati on nasal spray,suspe nsion [place] 1 spray every day by intranasal route. No 1spray( s) Q1D Allergy Relief (fluticaso ne) 50 mcg/actuat ion nasal spray,susp ension [place] 1 spray every day by intranasal route. [facility] aspirin 81 mg capsule Take 1 capsule every day by oral route. aspirin 81 mg capsule Take 1 capsule every day by oral route. No 1capsul e(s) Q1D aspirin 81 mg capsule Take 1 capsule every day by oral route. [facility] azelastine- fluticasone 137 mcg-50 mcg/spray nasal spray [place] 1 spray twice a day by intranasal route. azelastine- fluticasone 137 mcg-50 mcg/spray nasal spray [place] 1 spray twice a day by intranasal route. No 1spray( s) BID azelastine -fluticaso ne 137 mcg-50 mcg/spray nasal spray [place] 1 spray twice a day by intranasal route. [facility] Breztri Aerosphere 160 mcg-9mcg-4. 8mcg/actuat ion HFA aerosol inhaler Breztri Aerosphere 160 mcg-9mcg-4. 8mcg/actuat ion HFA aerosol inhaler No Breztri Aerosphere 160 mcg-9mcg-4 .8mcg/actu ation HFA aerosol inhaler [facility] cyclobenzap rine 10 mg tablet Take 1 tablet 3 times a day by oral route. cyclobenzap rine 10 mg tablet Take 1 tablet 3 times a day by oral route. No 1 TID cyclobenza mary 10 mg tablet Take 1 tablet 3 times a day by oral route. [facility] diclofenac sodium 75 mg tablet,homero yed release Take 1 tablet twice a day by oral route. diclofenac sodium 75 mg tablet,homero yed release Take 1 tablet twice a day by oral route. No 1 BID diclofenac sodium 75 mg tablet,del ayed release Take 1 tablet twice a day by oral route. [facility] gabapentin 300 mg capsule Take 1 capsule 3 times a day by oral route. gabapentin 300 mg capsule Take 1 capsule 3 times a day by oral route. No 1capsul e(s) TID gabapentin 300 mg capsule Take 1 capsule 3 times a day by oral route. [facility] hydroxyzine HCl 50 mg tablet Take 1 tablet 4 times a day by oral route. hydroxyzine HCl 50 mg tablet Take 1 tablet 4 times a day by oral route. No 1 QID hydroxyzin e HCl 50 mg tablet Take 1 tablet 4 times a day by oral route. [facility] lamotrigine 200 mg tablet Take 1 tablet twice a day by oral route. lamotrigine 200 mg tablet Take 1 tablet twice a day by oral route. No 1 BID lamotrigin e 200 mg tablet Take 1 tablet twice a day by oral route. [facility] metoprolol tartrate 50 mg tablet Take 1 tablet twice a day by oral route. metoprolol tartrate 50 mg tablet Take 1 tablet twice a day by oral route. No 1 BID metoprolol tartrate 50 mg tablet Take 1 tablet twice a day by oral route. [facility] omeprazole 20 mg capsule,del ayed release Take 1 capsule every day by oral route. omeprazole 20 mg capsule,del ayed release Take 1 capsule every day by oral route. No 1capsul e(s) Q1D omeprazole 20 mg capsule,de layed release Take 1 capsule every day by oral route. [facility] spironolact one 25 mg-hydrochl orothiazide 25 mg tablet spironolact one 25 mg-hydrochl orothiazide 25 mg tablet No spironolac tone 25 mg-hydroch lorothiazi de 25 mg tablet [facility] tamsulosin 0.4 mg capsule tamsulosin 0.4 mg capsule No tamsulosin 0.4 mg capsule [facility] trazodone ER 150 mg tablet,exte nded release 24 hr Take 1 tablet every day by oral route. trazodone ER 150 mg tablet,exte nded release 24 hr Take 1 tablet every day by oral route. No 1 Q1D trazodone ER 150 mg tablet,ext ended release 24 hr Take 1 tablet every day by oral route. [facility] Trelegy Ellipta 200 mcg-62.5 mcg-25 mcg powder for inhalation Trelegy Ellipta 200 mcg-62.5 mcg-25 mcg powder for inhalation No Trelegy Ellipta 200 mcg-62.5 mcg-25 mcg powder for inhalation [facility] Tri Mix 5 mL vial. Papaverine 30mg/mL, Phentolamin e Mesylate 1mg/mL, Prostagland in E1 10mcg/mL Inject 0.5 cc into penis as directed for erection no more than once in 24 hours. May increase by 0.1 cc per injection until desired effect Tri Mix 5 mL vial. Papaverine 30mg/mL, Phentolamin e Mesylate 1mg/mL, Prostagland in E1 10mcg/mL Inject 0.5 cc into penis as directed for erection no more than once in 24 hours. May increase by 0.1 cc per injection until desired effect No Tri Mix 5 mL vial. Papaverine 30mg/mL, Phentolami ne Mesylate 1mg/mL, Prostaglan din E1 10mcg/mL Inject 0.5 cc into penis as directed for erection no more than once in 24 hours. May increase by 0.1 cc per injection until desired effect [facility] varenicline 1 mg tablet varenicline 1 mg tablet No vareniclin e 1 mg tablet [facility] albuterol sulf 90 mcg/actuati on breath activated powder inhaler,sen sor Inhale 2 puffs every 4 hours by inhalation route. albuterol sulf 90 mcg/actuati on breath activated powder inhaler,sen sor Inhale 2 puffs every 4 hours by inhalation route. No 2puff(s ) Q4H albuterol sulf 90 mcg/actuat ion breath activated powder inhaler,se nsor Inhale 2 puffs every 4 hours by inhalation route. [facility] aripiprazol e 5 mg tablet Take 1 tablet every day by oral route. aripiprazol e 5 mg tablet Take 1 tablet every day by oral route. No 1 Q1D aripiprazo le 5 mg tablet Take 1 tablet every day by oral route. [facility] azelastine 137 mcg (0.1 %) nasal spray aerosol [place] 2 sprays twice a day by intranasal route. azelastine 137 mcg (0.1 %) nasal spray aerosol [place] 2 sprays twice a day by intranasal route. No 2spray( s) BID azelastine 137 mcg (0.1 %) nasal spray aerosol [place] 2 sprays twice a day by intranasal route. [facility] budesonide 180 mcg/actuati on breath activated powder inhaler Inhale 1 puff twice a day by inhalation route. budesonide 180 mcg/actuati on breath activated powder inhaler Inhale 1 puff twice a day by inhalation route. No 1puff(s ) BID budesonide 180 mcg/actuat ion breath activated powder inhaler Inhale 1 puff twice a day by inhalation route. [facility] carboxymeth yl 0.5 %-glycerin 1 %-polysorb 80 0.5 %-PF eye dropperette 2 drop bid carboxymeth yl 0.5 %-glycerin 1 %-polysorb 80 0.5 %-PF eye dropperette 2 drop bid No carboxymet hyl 0.5 %-glycerin 1 %-polysorb 80 0.5 %-PF eye dropperett e 2 drop bid [facility] cetirizine 10 mg capsule Take 1 mg every day by oral route. cetirizine 10 mg capsule Take 1 mg every day by oral route. No 1mg Q1D cetirizine 10 mg capsule Take 1 mg every day by oral route. [facility] cyclobenzap rine 10 mg tablet Take 1 tablet 3 times a day by oral route. cyclobenzap rine 10 mg tablet Take 1 tablet 3 times a day by oral route. No 1 TID cyclobenza mary 10 mg tablet Take 1 tablet 3 times a day by oral route. [facility] gabapentin 300 mg capsule Take 1 capsule 3 times a day by oral route. gabapentin 300 mg capsule Take 1 capsule 3 times a day by oral route. No 1capsul e(s) TID gabapentin 300 mg capsule Take 1 capsule 3 times a day by oral route. [facility] lamotrigine 200 mg tablet Take 1 tablet twice a day by oral route. lamotrigine 200 mg tablet Take 1 tablet twice a day by oral route. No 1 BID lamotrigin e 200 mg tablet Take 1 tablet twice a day by oral route. [facility] [facility] lisinopril 10 mg tablet Take 1 tablet every day by oral route. lisinopril 10 mg tablet Take 1 tablet every day by oral route. No 1 Q1D lisinopril 10 mg tablet Take 1 tablet every day by oral route. [facility] metoprolol tartrate 25 mg tablet Take 1 tablet twice a day by oral route. metoprolol tartrate 25 mg tablet Take 1 tablet twice a day by oral route. No 1 BID metoprolol tartrate 25 mg tablet Take 1 tablet twice a day by oral route. [facility] omeprazole 20 mg capsule,del ayed release Take 1 capsule twice a day by oral route. omeprazole 20 mg capsule,del ayed release Take 1 capsule twice a day by oral route. No 1capsul e(s) BID omeprazole 20 mg capsule,de layed release Take 1 capsule twice a day by oral route. [facility] tiotropium 2.5 mcg-olodate rol 2.5 mcg/actuati on mist for inhalation Inhale 2 puffs every day by inhalation route. tiotropium 2.5 mcg-olodate rol 2.5 mcg/actuati on mist for inhalation Inhale 2 puffs every day by inhalation route. No 2puff(s ) Q1D tiotropium 2.5 mcg-olodat marla 2.5 mcg/actuat ion mist for inhalation Inhale 2 puffs every day by inhalation route. [facility] trazodone 100 mg tablet Take 1 tablet every day by oral route. trazodone 100 mg tablet Take 1 tablet every day by oral route. No 1 Q1D trazodone 100 mg tablet Take 1 tablet every day by oral route. [facility] No known medications No [facility] metoprolol tartrate 50 mg tablet metoprolol tartrate 50 mg tablet Yes [facility] TRELEGY ELLIPTA 200-62.5-25 MCG/ACT AERO POW BR ACT TRELEGY ELLIPTA 200-62.5-25 MCG/ACT AERO POW BR ACT Yes [facility] albuterol sulfate hfa 108 (90 base) mcg/act aerosol soln albuterol sulfate hfa 108 (90 base) mcg/act aerosol soln Yes [facility] diclofenac sodium [address] diclofenac sodium [address] Yes [facility] lamotrigine 200 mg tablet lamotrigine 200 mg tablet Yes [facility] gabapentin 300 mg capsule gabapentin 300 mg capsule Yes [facility] tamsulosin hcl 0.4 mg capsule tamsulosin hcl 0.4 mg capsule Yes [facility] quetiapine fumarate 100 mg tablet quetiapine fumarate 100 mg tablet Yes [facility] atorvastati n calcium 80 mg tablet atorvastati n calcium 80 mg tablet Yes [facility] lidocaine 5 % patch lidocaine 5 % patch Yes [facility] varenicline tartrate (starter) 0.5 mg x 11 & 1 mg x 42 tab ther pack varenicline tartrate (starter) 0.5 mg x 11 & 1 mg x 42 tab ther pack Yes [facility] azelastine hcl 0.1 % solution azelastine hcl 0.1 % solution Yes [facility] cyclobenzap rine hcl 10 mg tablet cyclobenzap rine hcl 10 mg tablet Yes [facility] hydroxyzine hcl 50 mg tablet hydroxyzine hcl 50 mg tablet Yes [facility] trazodone hcl 50 mg tablet trazodone hcl 50 mg tablet Yes [facility] ENTRESTO 24-26 MG TABLET ENTRESTO 24-26 MG TABLET Yes [facility] JARDIANCE 10 MG TABLET JARDIANCE 10 MG TABLET Yes [facility] furosemide 40 mg tablet furosemide 40 mg tablet Yes [facility] atorvastati n calcium 80 mg tablet atorvastati n calcium 80 mg tablet Yes [facility] clopidogrel bisulfate 75 mg tablet clopidogrel bisulfate 75 mg tablet Yes [facility] clopidogrel bisulfate 75 mg tablet clopidogrel bisulfate 75 mg tablet Yes [facility] MOUNJARO 5 MG/0.5ML SOLN AUTO INJ MOUNJARO 5 MG/0.5ML SOLN AUTO INJ Yes [facility] albuterol sulfate (2.5 mg/3ml) 0.083% nebulized soln albuterol sulfate (2.5 mg/3ml) 0.083% nebulized soln Yes [facility] TRELEGY ELLIPTA 200-62.5-25 MCG/ACT AERO POW BR ACT TRELEGY ELLIPTA 200-62.5-25 MCG/ACT AERO POW BR ACT Yes [facility] albuterol sulfate hfa 108 (90 base) mcg/act aerosol soln albuterol sulfate hfa 108 (90 base) mcg/act aerosol soln Yes [facility] diclofenac sodium [address] diclofenac sodium [address] Yes [facility] lamotrigine 200 mg tablet lamotrigine 200 mg tablet Yes [facility] gabapentin 300 mg capsule gabapentin 300 mg capsule Yes [facility] tamsulosin hcl 0.4 mg capsule tamsulosin hcl 0.4 mg capsule Yes [facility] MOUNJARO 5 MG/0.5ML SOLN PEN INJ MOUNJARO 5 MG/0.5ML SOLN PEN INJ Yes [facility] metoprolol succinate er 100 mg tablet er 24 hr metoprolol succinate er 100 mg tablet er 24 hr Yes [facility] quetiapine fumarate 100 mg tablet quetiapine fumarate 100 mg tablet Yes [facility] lidocaine 5 % patch lidocaine 5 % patch Yes [facility] varenicline tartrate (starter) 0.5 mg x 11 & 1 mg x 42 tab ther pack varenicline tartrate (starter) 0.5 mg x 11 & 1 mg x 42 tab ther pack Yes [facility] azelastine hcl 0.1 % solution azelastine hcl 0.1 % solution Yes [facility] cyclobenzap rine hcl 10 mg tablet cyclobenzap rine hcl 10 mg tablet Yes [facility] hydroxyzine hcl 50 mg tablet hydroxyzine hcl 50 mg tablet Yes [facility] trazodone hcl 50 mg tablet trazodone hcl 50 mg tablet Yes [facility] albuterol sulfate (2.5 mg/3ml) 0.083% nebulized soln albuterol sulfate (2.5 mg/3ml) 0.083% nebulized soln Yes [facility] ENTRESTO 24-26 MG TABLET ENTRESTO 24-26 MG TABLET Yes [facility] JARDIANCE 10 MG TABLET JARDIANCE 10 MG TABLET Yes [facility] furosemide 40 mg tablet furosemide 40 mg tablet Yes [facility] atorvastati n calcium 80 mg tablet atorvastati n calcium 80 mg tablet Yes [facility] clopidogrel bisulfate 75 mg tablet clopidogrel bisulfate 75 mg tablet Yes [facility] MOUNJARO 5 MG/0.5ML SOLN AUTO INJ MOUNJARO 5 MG/0.5ML SOLN AUTO INJ Yes [facility] albuterol sulfate (2.5 mg/3ml) 0.083% nebulized soln albuterol sulfate (2.5 mg/3ml) 0.083% nebulized soln Yes [facility] TRELEGY ELLIPTA 200-62.5-25 MCG/ACT AERO POW BR ACT TRELEGY ELLIPTA 200-62.5-25 MCG/ACT AERO POW BR ACT Yes [facility] albuterol sulfate hfa 108 (90 base) mcg/act aerosol soln albuterol sulfate hfa 108 (90 base) mcg/act aerosol soln Yes [facility] diclofenac sodium [address] diclofenac sodium [address] Yes [facility] TRELEGY ELLIPTA 200-62.5-25 MCG/ACT AERO POW BR ACT TRELEGY ELLIPTA 200-62.5-25 MCG/ACT AERO POW BR ACT Yes [facility] lamotrigine 200 mg tablet lamotrigine 200 mg tablet Yes [facility] gabapentin 300 mg capsule gabapentin 300 mg capsule Yes [facility] tamsulosin hcl 0.4 mg capsule tamsulosin hcl 0.4 mg capsule Yes [facility] metoprolol succinate er 100 mg tablet er 24 hr metoprolol succinate er 100 mg tablet er 24 hr Yes [facility] quetiapine fumarate 100 mg tablet quetiapine fumarate 100 mg tablet Yes [facility] lidocaine 5 % patch lidocaine 5 % patch Yes [facility] varenicline tartrate (starter) 0.5 mg x 11 & 1 mg x 42 tab ther pack varenicline tartrate (starter) 0.5 mg x 11 & 1 mg x 42 tab ther pack Yes [facility] albuterol sulfate hfa 108 (90 base) mcg/act aerosol soln albuterol sulfate hfa 108 (90 base) mcg/act aerosol soln Yes [facility] azelastine hcl 0.1 % solution azelastine hcl 0.1 % solution Yes [facility] cyclobenzap rine hcl 10 mg tablet cyclobenzap rine hcl 10 mg tablet Yes [facility] hydroxyzine hcl 50 mg tablet hydroxyzine hcl 50 mg tablet Yes [facility] trazodone hcl 50 mg tablet trazodone hcl 50 mg tablet Yes [facility] ENTRESTO 24-26 MG TABLET ENTRESTO 24-26 MG TABLET Yes [facility] JARDIANCE 10 MG TABLET JARDIANCE 10 MG TABLET Yes [facility] furosemide 40 mg tablet furosemide 40 mg tablet Yes [facility] atorvastati n calcium 80 mg tablet atorvastati n calcium 80 mg tablet Yes [facility] clopidogrel bisulfate 75 mg tablet clopidogrel bisulfate 75 mg tablet Yes [facility] MOUNJARO 5 MG/0.5ML SOLN AUTO INJ MOUNJARO 5 MG/0.5ML SOLN AUTO INJ Yes [facility] diclofenac sodium [address] diclofenac sodium [address] Yes [facility] albuterol sulfate (2.5 mg/3ml) 0.083% nebulized soln albuterol sulfate (2.5 mg/3ml) 0.083% nebulized soln Yes [facility] TRELEGY ELLIPTA 200-62.5-25 MCG/ACT AERO POW BR ACT TRELEGY ELLIPTA 200-62.5-25 MCG/ACT AERO POW BR ACT Yes [facility] albuterol sulfate hfa 108 (90 base) mcg/act aerosol soln albuterol sulfate hfa 108 (90 base) mcg/act aerosol soln Yes [facility] diclofenac sodium [address] diclofenac sodium [address] Yes [facility] lamotrigine 200 mg tablet lamotrigine 200 mg tablet Yes [facility] gabapentin 300 mg capsule gabapentin 300 mg capsule Yes [facility] tamsulosin hcl 0.4 mg capsule tamsulosin hcl 0.4 mg capsule Yes [facility] gabapentin 300 mg capsule gabapentin 300 mg capsule Yes [facility] metoprolol succinate er 100 mg tablet er 24 hr metoprolol succinate er 100 mg tablet er 24 hr Yes [facility] quetiapine fumarate 100 mg tablet quetiapine fumarate 100 mg tablet Yes [facility] lidocaine 5 % patch lidocaine 5 % patch Yes [facility] varenicline tartrate (starter) 0.5 mg x 11 & 1 mg x 42 tab ther pack varenicline tartrate (starter) 0.5 mg x 11 & 1 mg x 42 tab ther pack Yes [facility] azelastine hcl 0.1 % solution azelastine hcl 0.1 % solution Yes [facility] cyclobenzap rine hcl 10 mg tablet cyclobenzap rine hcl 10 mg tablet Yes [facility] hydroxyzine hcl 50 mg tablet hydroxyzine hcl 50 mg tablet Yes [facility] trazodone hcl 50 mg tablet trazodone hcl 50 mg tablet Yes [facility] ENTRESTO 24-26 MG TABLET ENTRESTO 24-26 MG TABLET Yes [facility] JARDIANCE 10 MG TABLET JARDIANCE 10 MG TABLET Yes [facility] tamsulosin hcl 0.4 mg capsule tamsulosin hcl 0.4 mg capsule Yes [facility] furosemide 40 mg tablet furosemide 40 mg tablet Yes [facility] atorvastati n calcium 80 mg tablet atorvastati n calcium 80 mg tablet Yes [facility] clopidogrel bisulfate 75 mg tablet clopidogrel bisulfate 75 mg tablet Yes [facility] MOUNJARO 5 MG/0.5ML SOLN AUTO INJ MOUNJARO 5 MG/0.5ML SOLN AUTO INJ Yes [facility] albuterol sulfate (2.5 mg/3ml) 0.083% nebulized soln albuterol sulfate (2.5 mg/3ml) 0.083% nebulized soln Yes [facility] TRELEGY ELLIPTA 200-62.5-25 MCG/ACT AERO POW BR ACT TRELEGY ELLIPTA 200-62.5-25 MCG/ACT AERO POW BR ACT Yes [facility] albuterol sulfate hfa 108 (90 base) mcg/act aerosol soln albuterol sulfate hfa 108 (90 base) mcg/act aerosol soln Yes [facility] diclofenac sodium [address] diclofenac sodium [address] Yes [facility] lamotrigine 200 mg tablet lamotrigine 200 mg tablet Yes [facility] gabapentin 300 mg capsule gabapentin 300 mg capsule Yes [facility] tamsulosin hcl 0.4 mg capsule tamsulosin hcl 0.4 mg capsule Yes [facility] spironolact one 25 mg tablet spironolact one 25 mg tablet Yes [facility] metoprolol succinate er 100 mg tablet er 24 hr metoprolol succinate er 100 mg tablet er 24 hr Yes [facility] quetiapine fumarate 100 mg tablet quetiapine fumarate 100 mg tablet Yes [facility] lidocaine 5 % patch lidocaine 5 % patch Yes [facility] varenicline tartrate (starter) 0.5 mg x 11 & 1 mg x 42 tab ther pack varenicline tartrate (starter) 0.5 mg x 11 & 1 mg x 42 tab ther pack Yes [facility] azelastine hcl 0.1 % solution azelastine hcl 0.1 % solution Yes [facility] cyclobenzap rine hcl 10 mg tablet cyclobenzap rine hcl 10 mg tablet Yes [facility] hydroxyzine hcl 50 mg tablet hydroxyzine hcl 50 mg tablet Yes [facility] trazodone hcl 50 mg tablet trazodone hcl 50 mg tablet Yes [facility] ENTRESTO 24-26 MG TABLET ENTRESTO 24-26 MG TABLET Yes [facility] JARDIANCE 10 MG TABLET JARDIANCE 10 MG TABLET Yes [facility] furosemide 40 mg tablet furosemide 40 mg tablet Yes [facility] atorvastati n calcium 80 mg tablet atorvastati n calcium 80 mg tablet Yes [facility] clopidogrel bisulfate 75 mg tablet clopidogrel bisulfate 75 mg tablet Yes [facility] MOUNJARO 5 MG/0.5ML SOLN AUTO INJ MOUNJARO 5 MG/0.5ML SOLN AUTO INJ Yes [facility] albuterol sulfate (2.5 mg/3ml) 0.083% nebulized soln albuterol sulfate (2.5 mg/3ml) 0.083% nebulized soln Yes [facility] TRELEGY ELLIPTA 200-62.5-25 MCG/ACT AERO POW BR ACT TRELEGY ELLIPTA 200-62.5-25 MCG/ACT AERO POW BR ACT Yes [facility] albuterol sulfate hfa 108 (90 base) mcg/act aerosol soln albuterol sulfate hfa 108 (90 base) mcg/act aerosol soln Yes [facility] diclofenac sodium [address] diclofenac sodium [address] Yes [facility] lamotrigine 200 mg tablet lamotrigine 200 mg tablet Yes [facility] gabapentin 300 mg capsule gabapentin 300 mg capsule Yes [facility] tamsulosin hcl 0.4 mg capsule tamsulosin hcl 0.4 mg capsule Yes [facility] spironolact one 25 mg tablet spironolact one 25 mg tablet Yes [facility] azelastine hcl 0.1 % solution azelastine hcl 0.1 % solution Yes [facility] metoprolol succinate er 100 mg tablet er 24 hr metoprolol succinate er 100 mg tablet er 24 hr Yes [facility] quetiapine fumarate 100 mg tablet quetiapine fumarate 100 mg tablet Yes [facility] lidocaine 5 % patch lidocaine 5 % patch Yes [facility] varenicline tartrate (starter) 0.5 mg x 11 & 1 mg x 42 tab ther pack varenicline tartrate (starter) 0.5 mg x 11 & 1 mg x 42 tab ther pack Yes [facility] azelastine hcl 0.1 % solution azelastine hcl 0.1 % solution Yes [facility] cyclobenzap rine hcl 10 mg tablet cyclobenzap rine hcl 10 mg tablet Yes [facility] hydroxyzine hcl 50 mg tablet hydroxyzine hcl 50 mg tablet Yes [facility] trazodone hcl 50 mg tablet trazodone hcl 50 mg tablet Yes [facility] ENTRESTO 24-26 MG TABLET ENTRESTO 24-26 MG TABLET Yes [facility] JARDIANCE 10 MG TABLET JARDIANCE 10 MG TABLET Yes [facility] cyclobenzap rine hcl 10 mg tablet cyclobenzap rine hcl 10 mg tablet Yes [facility] furosemide 40 mg tablet furosemide 40 mg tablet Yes [facility] atorvastati n calcium 80 mg tablet atorvastati n calcium 80 mg tablet Yes [facility] clopidogrel bisulfate 75 mg tablet clopidogrel bisulfate 75 mg tablet Yes [facility] MOUNJARO 5 MG/0.5ML SOLN AUTO INJ MOUNJARO 5 MG/0.5ML SOLN AUTO INJ Yes [facility] albuterol sulfate (2.5 mg/3ml) 0.083% nebulized soln albuterol sulfate (2.5 mg/3ml) 0.083% nebulized soln Yes [facility] TRELEGY ELLIPTA 200-62.5-25 MCG/ACT AERO POW BR ACT TRELEGY ELLIPTA 200-62.5-25 MCG/ACT AERO POW BR ACT Yes [facility] albuterol sulfate hfa 108 (90 base) mcg/act aerosol soln albuterol sulfate hfa 108 (90 base) mcg/act aerosol soln Yes [facility] diclofenac sodium [address] diclofenac sodium [address] Yes [facility] lamotrigine 200 mg tablet lamotrigine 200 mg tablet Yes [facility] gabapentin 300 mg capsule gabapentin 300 mg capsule Yes [facility] hydroxyzine hcl 50 mg tablet hydroxyzine hcl 50 mg tablet Yes [facility] tamsulosin hcl 0.4 mg capsule tamsulosin hcl 0.4 mg capsule Yes [facility] spironolact one 25 mg tablet spironolact one 25 mg tablet Yes [facility] metoprolol succinate er 100 mg tablet er 24 hr metoprolol succinate er 100 mg tablet er 24 hr Yes [facility] quetiapine fumarate 100 mg tablet quetiapine fumarate 100 mg tablet Yes [facility] lidocaine 5 % patch lidocaine 5 % patch Yes [facility] varenicline tartrate (starter) 0.5 mg x 11 & 1 mg x 42 tab ther pack varenicline tartrate (starter) 0.5 mg x 11 & 1 mg x 42 tab ther pack Yes [facility] dicyclomine hcl 10 mg capsule dicyclomine hcl 10 mg capsule Yes [facility] trazodone hcl 50 mg tablet trazodone hcl 50 mg tablet Yes [facility] azelastine hcl 0.1 % solution azelastine hcl 0.1 % solution Yes [facility] cyclobenzap rine hcl 10 mg tablet cyclobenzap rine hcl 10 mg tablet Yes [facility] hydroxyzine hcl 50 mg tablet hydroxyzine hcl 50 mg tablet Yes [facility] trazodone hcl 50 mg tablet trazodone hcl 50 mg tablet Yes [facility] ENTRESTO 24-26 MG TABLET ENTRESTO 24-26 MG TABLET Yes [facility] JARDIANCE 10 MG TABLET JARDIANCE 10 MG TABLET Yes [facility] furosemide 40 mg tablet furosemide 40 mg tablet Yes [facility] atorvastati n calcium 80 mg tablet atorvastati n calcium 80 mg tablet Yes [facility] clopidogrel bisulfate 75 mg tablet clopidogrel bisulfate 75 mg tablet Yes [facility] albuterol sulfate (2.5 mg/3ml) 0.083% nebulized soln albuterol sulfate (2.5 mg/3ml) 0.083% nebulized soln Yes [facility] ENTRESTO 24-26 MG TABLET ENTRESTO 24-26 MG TABLET Yes [facility] TRELEGY ELLIPTA 200-62.5-25 MCG/ACT AERO POW BR ACT TRELEGY ELLIPTA 200-62.5-25 MCG/ACT AERO POW BR ACT Yes [facility] albuterol sulfate hfa 108 (90 base) mcg/act aerosol soln albuterol sulfate hfa 108 (90 base) mcg/act aerosol soln Yes [facility] diclofenac sodium [address] diclofenac sodium [address] Yes [facility] lamotrigine 200 mg tablet lamotrigine 200 mg tablet Yes [facility] gabapentin 300 mg capsule gabapentin 300 mg capsule Yes [facility] tamsulosin hcl 0.4 mg capsule tamsulosin hcl 0.4 mg capsule Yes [facility] JARDIANCE 10 MG TABLET JARDIANCE 10 MG TABLET Yes [facility] furosemide 40 mg tablet furosemide 40 mg tablet Yes [facility] azelastine hcl 0.1 % solution azelastine hcl 0.1 % solution Yes [facility] metoprolol tartrate 50 mg tablet metoprolol tartrate 50 mg tablet Yes [facility] atorvastati n calcium 80 mg tablet atorvastati n calcium 80 mg tablet Yes [facility] clopidogrel bisulfate 75 mg tablet clopidogrel bisulfate 75 mg tablet Yes [facility] MOUNJARO 5 MG/0.5ML SOLN PEN INJ MOUNJARO 5 MG/0.5ML SOLN PEN INJ Yes [facility] albuterol sulfate (2.5 mg/3ml) 0.083% nebulized soln albuterol sulfate (2.5 mg/3ml) 0.083% nebulized soln Yes [facility] TRELEGY ELLIPTA 200-62.5-25 MCG/ACT AERO POW BR ACT TRELEGY ELLIPTA 200-62.5-25 MCG/ACT AERO POW BR ACT Yes [facility] albuterol sulfate hfa 108 (90 base) mcg/act aerosol soln albuterol sulfate hfa 108 (90 base) mcg/act aerosol soln Yes [facility] diclofenac sodium [address] diclofenac sodium [address] Yes [facility] gabapentin 300 mg capsule gabapentin 300 mg capsule Yes [facility] tamsulosin hcl 0.4 mg capsule tamsulosin hcl 0.4 mg capsule Yes [facility] cyclobenzap rine hcl 10 mg tablet cyclobenzap rine hcl 10 mg tablet Yes [facility] azelastine hcl 0.1 % solution azelastine hcl 0.1 % solution Yes [facility] cyclobenzap rine hcl 10 mg tablet cyclobenzap rine hcl 10 mg tablet Yes [facility] hydroxyzine hcl 50 mg tablet hydroxyzine hcl 50 mg tablet Yes [facility] trazodone hcl 50 mg tablet trazodone hcl 50 mg tablet Yes [facility] ENTRESTO 24-26 MG TABLET ENTRESTO 24-26 MG TABLET Yes [facility] JARDIANCE 10 MG TABLET JARDIANCE 10 MG TABLET Yes [facility] furosemide 40 mg tablet furosemide 40 mg tablet Yes [facility] hydroxyzine hcl 50 mg tablet hydroxyzine hcl 50 mg tablet Yes [facility] metoprolol tartrate 50 mg tablet metoprolol tartrate 50 mg tablet Yes [facility] atorvastati n calcium 80 mg tablet atorvastati n calcium 80 mg tablet Yes [facility] clopidogrel bisulfate 75 mg tablet clopidogrel bisulfate 75 mg tablet Yes [facility] MOUNJARO 5 MG/0.5ML SOLN AUTO INJ MOUNJARO 5 MG/0.5ML SOLN AUTO INJ Yes [facility] albuterol sulfate (2.5 mg/3ml) 0.083% nebulized soln albuterol sulfate (2.5 mg/3ml) 0.083% nebulized soln Yes [facility] TRELEGY ELLIPTA 200-62.5-25 MCG/ACT AERO POW BR ACT TRELEGY ELLIPTA 200-62.5-25 MCG/ACT AERO POW BR ACT Yes [facility] albuterol sulfate hfa 108 (90 base) mcg/act aerosol soln albuterol sulfate hfa 108 (90 base) mcg/act aerosol soln Yes [facility] diclofenac sodium [address] diclofenac sodium [address] Yes [facility] gabapentin 300 mg capsule gabapentin 300 mg capsule Yes [facility] tamsulosin hcl 0.4 mg capsule tamsulosin hcl 0.4 mg capsule Yes [facility] trazodone hcl 50 mg tablet trazodone hcl 50 mg tablet Yes [facility] lidocaine 5 % patch lidocaine 5 % patch Yes [facility] varenicline tartrate (starter) 0.5 mg x 11 & 1 mg x 42 tab ther pack varenicline tartrate (starter) 0.5 mg x 11 & 1 mg x 42 tab ther pack Yes [facility] azelastine hcl 0.1 % solution azelastine hcl 0.1 % solution Yes [facility] cyclobenzap rine hcl 10 mg tablet cyclobenzap rine hcl 10 mg tablet Yes [facility] hydroxyzine hcl 50 mg tablet hydroxyzine hcl 50 mg tablet Yes [facility] trazodone hcl 50 mg tablet trazodone hcl 50 mg tablet Yes [facility] ENTRESTO 24-26 MG TABLET ENTRESTO 24-26 MG TABLET Yes [facility] ENTRESTO 24-26 MG TABLET ENTRESTO 24-26 MG TABLET Yes [facility] JARDIANCE 10 MG TABLET JARDIANCE 10 MG TABLET Yes [facility] furosemide 40 mg tablet furosemide 40 mg tablet Yes [facility] metoprolol tartrate 50 mg tablet metoprolol tartrate 50 mg tablet Yes [facility] atorvastati n calcium 80 mg tablet atorvastati n calcium 80 mg tablet Yes [facility] clopidogrel bisulfate 75 mg tablet clopidogrel bisulfate 75 mg tablet Yes [facility] MOUNJARO 5 MG/0.5ML SOLN AUTO INJ MOUNJARO 5 MG/0.5ML SOLN AUTO INJ Yes [facility] albuterol sulfate (2.5 mg/3ml) 0.083% nebulized soln albuterol sulfate (2.5 mg/3ml) 0.083% nebulized soln Yes [facility] TRELEGY ELLIPTA 200-62.5-25 MCG/ACT AERO POW BR ACT TRELEGY ELLIPTA 200-62.5-25 MCG/ACT AERO POW BR ACT Yes [facility] albuterol sulfate hfa 108 (90 base) mcg/act aerosol soln albuterol sulfate hfa 108 (90 base) mcg/act aerosol soln Yes [facility] diclofenac sodium [address] diclofenac sodium [address] Yes [facility] JARDIANCE 10 MG TABLET JARDIANCE 10 MG TABLET Yes [facility] lamotrigine 200 mg tablet lamotrigine 200 mg tablet Yes [facility] gabapentin 300 mg capsule gabapentin 300 mg capsule Yes [facility] tamsulosin hcl 0.4 mg capsule tamsulosin hcl 0.4 mg capsule Yes [facility] lidocaine 5 % patch lidocaine 5 % patch Yes [facility] varenicline tartrate (starter) 0.5 mg x 11 & 1 mg x 42 tab ther pack varenicline tartrate (starter) 0.5 mg x 11 & 1 mg x 42 tab ther pack Yes [facility] azelastine hcl 0.1 % solution azelastine hcl 0.1 % solution Yes [facility] cyclobenzap rine hcl 10 mg tablet cyclobenzap rine hcl 10 mg tablet Yes [facility] furosemide 40 mg tablet furosemide 40 mg tablet Yes [facility] hydroxyzine hcl 50 mg tablet hydroxyzine hcl 50 mg tablet Yes [facility] trazodone hcl 50 mg tablet trazodone hcl 50 mg tablet Yes [facility] ENTRESTO 24-26 MG TABLET ENTRESTO 24-26 MG TABLET Yes [facility] JARDIANCE 10 MG TABLET JARDIANCE 10 MG TABLET Yes [facility] furosemide 40 mg tablet furosemide 40 mg tablet Yes [facility] metoprolol tartrate 50 mg tablet metoprolol tartrate 50 mg tablet Yes [facility] atorvastati n calcium 80 mg tablet atorvastati n calcium 80 mg tablet Yes [facility] clopidogrel bisulfate 75 mg tablet clopidogrel bisulfate 75 mg tablet Yes [facility] MOUNJARO 5 MG/0.5ML SOLN AUTO INJ MOUNJARO 5 MG/0.5ML SOLN AUTO INJ Yes [facility] albuterol sulfate (2.5 mg/3ml) 0.083% nebulized soln albuterol sulfate (2.5 mg/3ml) 0.083% nebulized soln Yes [facility] Vital Signs Vital Name Observation Time Observation Value Comments S ource BP Diastolic 2022-07-09 00:00:00 72 mm[Hg] [facility] Height 2022-07-09 00:00:00 71 [in_i] [facility] BMI (Body Mass Index) 2022-07-09 00:00:00 32.4 kg/m2 [facility] BP Systolic 2022-07-09 00:00:00 118 mm[Hg] [facility] Body Weight 2022-07-09 00:00:00 232 [lb_av] [facility] BP Diastolic 2022-06-19 00:00:00 78 mm[Hg] [facility] Height 2022-06-19 00:00:00 71 [in_i] [facility] BMI (Body Mass Index) 2022-06-19 00:00:00 32.4 kg/m[facility] Systolic 2022-06-19 00:00:00 118 mm[Hg] [facility] Body Weight 2022-06-19 00:00:00 232 [lb_av] [facility] BP Diastolic 2020-06-03 00:00:00 80 mm[Hg] [facility] Height 2020-06-03 00:00:00 71 [in_i] [facility] BMI (Body Mass Index) 2020-06-03 00:00:00 32.8 kg/m2 [facility] BP Systolic 2020-06-03 00:00:00 140 mm[Hg] [facility] Body Weight 2020-06-03 00:00:00 235 [lb_av] [facility] Systolic blood pressure 2020-03-20 18:46:00 166 mm[Hg] [facility] Diastolic blood pressure 2020-03-20 18:46:00 101 mm[Hg] [facility] Heart rate 2020-03-20 18:46:00 90 /min [facility] Respiratory rate 2020-03-20 18:46:00 16 /min [facility] Oxygen saturation in Arterial blood by Pulse oximetry 2020-03-20 18:46:00 95 /min [facility] Body temperature 2020-03-20 17:53:00 36.22 Caro [facility] Body height 2020-03-19 18:00:00 180.3 cm [facility] Body weight 2020-03-19 18:00:00 107.956 kg [facility] BMI 2020-03-19 18:00:00 33.19 kg/m2 [facility] Systolic blood pressure 2020-03-20 18:46:00 166 mm[Hg] [facility] Diastolic blood pressure 2020-03-20 18:46:00 101 mm[Hg] [facility] Heart rate 2020-03-20 18:46:00 90 /min [facility] Respiratory rate 2020-03-20 18:46:00 16 /min [facility] Oxygen saturation in Arterial blood by Pulse oximetry 2020-03-20 18:46:00 95 /min [facility] Body temperature 2020-03-20 17:53:00 36.22 Caro [facility] Body height 2020-03-19 18:00:00 180.3 cm [facility] Body weight 2020-03-19 18:00:00 107.956 kg [facility] BMI 2020-03-19 18:00:00 33.19 kg/m2 [facility] Height 2019-05-31 00:00:00 71 [in_i] [facility] BMI (Body Mass Index) 2019-05-31 00:00:00 6.4 [facility] Body Weight 2019-05-31 00:00:00 46 [lb_av] [facility] Systolic (mm Hg) 2019-02-01 22:41:00 [facility] Diastolic (mm Hg) 2019-02-01 22:41:00 [facility] Heart Rate 2019-02-01 22:41:00 [facility] Respitory Rate 2019-02-01 22:41:00 [facility] Height 2019-02-01 22:41:00 175.26 cm [facility] Weight 2019-02-01 22:41:00 [facility] BMI Calculated 2019-02-01 22:41:00 [facility] Systolic (mm Hg) 2018-12-21 21:00:00 [facility] Diastolic (mm Hg) 2018-12-21 21:00:00 [facility] Heart Rate 2018-12-21 21:00:00 [facility] Height 2018-12-21 21:00:00 177.8 cm [facility] Weight 2018-12-21 21:00:00 [facility] BMI Calculated 2018-12-21 21:00:00 [facility] Systolic (mm Hg) 2018-11-17 14:29:00 [facility] Diastolic (mm Hg) 2018-11-17 14:29:00 [facility] Heart Rate 2018-11-17 14:29:00 [facility] Respitory Rate 2018-11-17 14:29:00 [facility] Height 2018-11-17 14:29:00 172.72 cm [facility] Weight 2018-11-17 14:29:00 [facility] BMI Calculated 2018-11-17 14:29:00 [facility] Procedures Procedure Date / Time Performed Performing Clinician Source SURGERY - ADC 2020-03-20 06:01:00 Doctor Jennifer ssigned, [place] [facility] CONSENT/REFUSAL FOR DIAGNOSIS AND TREATMENT 2020-03-18 17:27:35 Doctor Unassigned, [place] [facility] ASSIGNMENT OF BENEFITS 2020-03-18 17:27:18 Docto r Unassigned, [place] [facility] NOTICE OF BILLING PRACTICES FOR MEDICARE PATIENTS 2020-03-18 17:26:59 Doctor Unassigned, [place] [facility] PATIENT FINANCIAL POLICY 2020-03-18 17:26:41 Doctor Unassigned, [place] [facility] NO SHOW OR MISSED APPOINTMENT POLICY ACKNOWLEDGEMENT 2020-03-18 17:25:55 Doctor Unassigned, [place] [facility] NOTICE OF PRIVACY PRACTICES 2020-03-18 17:25:30 Doctor Unassigned, [place] [facility] CONSENT/REFUSAL FOR DIAGNOSIS AND TREATMENT 2020-03-18 17:25:11 Doctor Unassigned, [place] [facility] ASSIGNMENT OF BENEFITS 2020-03-18 17:24:52 Docto r Unassigned, [place] [facility] Lumbar Spine Fusion [facility] Cholecystectomy [facility] Cystectomy [facility] rmann Encounters Start Date/Time End Date/Time Encounter Type Admission Type Attending Clinicians Care Facility Care Department Encounter ID Source 2020-12-14 20:58:54 Outpatient R KATICHANDAN [facility] [place] JILL [id number] [facility] 2024-05-26 13:00:00 2024-05-26 13:45:00 DHP CHF Follow-up Jennifer Javed FERNANDO DEV [id number] [facility] 2024-05-18 12:00:00 2024-05-18 12:30:00 DMG CHF Follow Up Balbina Lugo 2.16.840. 1.373991. 4.6.38021 [id number] 2.16.840.1. 203389.4.6. [id number] SCK [facility] 2024-05-17 13:00:00 2024-05-17 13:45:00 DHP CHF Follow-up Jennifer Javed FERNANDO DEV [id number] CSE [facility] 2024-05-03 12:00:00 2024-05-03 13:00:00 DMG CHF Gap Closure Balbina Lugo 2.16.840. 1.601935. 4.6.32635 [id number] 2.16.840.1. 399800.4.6. [id number] KCH [facility] 2024-04-26 11:30:00 2024-04-26 12:15:00 DHP CHF Follow-up Jennifer Javed FERNANDO DEV [id number] 7CR [facility] 2024-04-12 10:45:00 2024-04-12 11:30:00 DHP CHF Follow-up Jennifer Javed FERNANDO DEV [id number] 654 [facility] 2024-03-29 15:00:00 2024-03-29 16:00:00 DMG CHF Initial Balbina Lugo 2.16.840. 1.424469. 4.6.87879 [id number] 2.16.840.1. 246095.4.6. [id number] CK9 [facility] 2024-03-22 12:15:00 2024-03-22 13:00:00 DHP CHF Follow-up Jennifer Javed FERNANDO DEV [id number] 922 [facility] 2024-03-08 11:30:00 2024-03-08 12:15:00 DHP CHF Follow-up Jennifer Javed DEV DEV CLACXUJCEZ 2YJ [facility] 2024-02-23 13:00:00 2024-02-23 14:00:00 DHP CHF Initial Assessment Jennifer KING DEV [id number] 4FG [facility] 2023-11-24 17:30:00 2023-11-24 18:00:00 D2Me Check-in Rosio Cano 2.16.840. 1.833334. 4.6.21952 [id number] 2.16.840.1. 741970.4.6. [id number] WW7 [facility] 2023-09-09 15:00:00 2023-09-09 15:40:00 CMR Xi Metcalf DEV DEV CLACXWHWHW J58 [facility] 2023-08-17 12:04:00 2023-08-18 14:53:00 Inpatient SHAWANDA Akins Benjamin HCAWU INTE.02 [id number] [facility] 2023-08-17 12:04:00 2023-08-18 14:53:00 Inpatient SHAWANDA Mable Benjamin HCAWU INTE.02 [id number] [facility] 2023-06-19 05:48:00 2023-06-19 05:48:00 Outpatient Roxie Watts [facility] [id number] [facility] 2023-03-29 14:30:00 2023-03-29 15:30:00 Annual D2Me Ariadna Whitman 2.16.840. 1.354769. 4.6.70468 [id number] 2.16.840.1. 155142.4.6. [id number] E57 [facility] 2022-12-10 00:00:00 2022-12-10 00:00:00 Outpatient OgBess DMG DMG [id number] [facility] 2022-10-13 14:00:00 2022-10-13 14:30:00 D2Me Revisit: Gap Closure & Clinical Check-in Ariadna Whitman 2.16.840. 1.740824. 4.6.18330 [id number] 2.16.840.1. 056004.4.6. [id number] CLACXWSFCE 38Y [facility] 2022-10-04 00:00:00 2022-10-04 00:00:00 Outpatient Champion_P HMU U [id number] [facility]rology 2022-07-09 00:00:00 2022-07-09 00:00:00 Elvin Gil MD: [id number] [address] , Ph. U [facility] [id number] [facility] 2022-07-06 00:00:00 2022-07-06 00:00:00 Outpatient Champion_P HMU HMU [id number] [facility] 2022-07-06 00:00:00 2022-07-06 00:00:00 Outpatient Champion_P HMU HMU [id number] [facility] 2022-06-19 00:00:00 2022-06-19 00:00:00 Outpatient Champion_P HMU HMU [id number] [facility] 2022-06-19 00:00:00 2022-06-19 00:00:00 Outpatient Champion_P HMU HMU [id number] [facility] 2022-06-19 00:00:00 2022-06-19 00:00:00 Elvin Gil MD: [address] [address] , Ph. U [facility] [id number] [facility] 2022-06-03 00:00:00 2022-06-03 00:00:00 Outpatient Champion_P HMU HMU [id number] [facility] 2022-06-03 00:00:00 2022-06-03 00:00:00 Outpatient Champion_P HMU HMU [id number] [facility] 2022-05-27 00:00:00 2022-05-27 00:00:00 Outpatient Champion_P HMU [facility] [id number] [facility] 2022-05-05 13:30:00 2022-05-05 14:30:00 CAV Ariadna J Carlos 2.16.840. 1.070768. 4.6.65279 [id number] 2.16.840.1. 241796.4.6. [id number] 6ZF [facility] 2022-04-02 00:00:00 2022-04-02 00:00:00 Outpatient Ogbechie_L DMG DMG [id number] [facility] 2022-04-02 00:00:00 2022-04-02 00:00:00 Outpatient Ogbechie_L DMG DMG [id number] [facility] 2022-04-02 00:00:00 2022-04-02 00:00:00 Outpatient Ogbechie_L DMG DMG [id number] [facility] 2021-12-31 16:00:00 2021-12-31 16:30:00 CAV Revisit: Gap Closure & Clinical Check-in Albina Harjeet 2.16.840. 1.529135. 4.6.01874 [id number] 2.16.840.1. 976595.4.6. [id number] CLACXKZZUC YKZ [facility] 2021-12-29 00:00:00 2021-12-29 00:00:00 Outpatient Deshazo_T DMG DMG [id number] [facility] 2021-09-29 15:30:00 2021-09-29 16:30:00 CAV Yas Huynh 2.16.840. 1.060540. 4.6.11464 [id number] 2.16.840.1. 203472.4.6. [id number] S5E [facility] 2021-09-18 00:00:00 2021-09-18 00:00:00 Outpatient Adams_R DMG DMG [id number] [facility] 2021-08-29 08:22:00 2021-08-29 08:22:00 Outpatient DMG DMG [id number] [facility] 2020-12-12 08:04:00 2020-12-12 08:04:00 Outpatient DMG DMG [id number] [facility] 2020-07-26 01:52:00 2020-07-26 01:52:00 Outpatient Miller_S_AH VFP VFP [id number] [facility] 2020-06-19 05:43:00 2020-06-19 05:43:00 Outpatient Nicholas-Mbayo _A_AH VFP VFP [id number] [facility] 2020-06-06 03:37:00 2020-06-06 03:37:00 Outpatient Nicholas-Mbayo _A_AH VFP VFP [id number] [facility] 2020-06-05 09:43:00 2020-06-05 09:43:00 Outpatient Nicholas-Mbayo _A_AH VFP VFP [id number] [facility] 2020-06-03 12:51:00 2020-06-03 12:51:00 Outpatient Nicholas-Mbayo _A_AH VFP VFP [id number] [facility] 2020-06-03 00:00:00 2020-06-03 00:00:00 Jaja Andrews o, BROADCAST CHECKER: [address], [address], [place] [address] , Ph. VFP [place] - [facility] - VM_HOU_V@_ [place] [facility] [id number] [facility] 2020-03-20 08:34:00 2020-03-20 13:05:00 Hospital Encounter Chandan Chappell [facility] 1.2.840.114 350.1.13.10 4.2.7.2.686 [id number] 2020-03-20 08:34:00 2020-03-20 13:05:00 Hospital Encounter Chandan Chappell [facility] 1.2.840.114 350.1.13.10 4.2.7.2.686 [id number] [facility] 2020-03-20 00:00:00 2020-03-20 00:00:00 Orders Only Doctor Unassigned, [place] [facility] 1.2.840.114 350.1.13.10 4.2.7.2.686 [id number] 2020-03-20 00:00:00 2020-03-20 00:00:00 Orders Only Doctor Unassigned, Dw[place] [facility] 1.2.840.114 350.1.13.10 4.2.7.2.686 [id number] [facility] 2020-03-18 11:40:03 2020-03-18 11:55:03 Curbing Stonecutter Visit Pob, Adc Lab Main [facility] 1.2.840.114 350.1.13.10 4.2.7.2.686 [id number] 2020-03-18 11:40:03 2020-03-18 11:55:03 Curbing Stonecutter Visit Pob, Adc Lab Main Chandan Chappell [facility] 1.2.840.114 350.1.13.10 4.2.7.2.686 [id number] [facility] 2020-03-18 11:39:37 2020-03-18 11:54:37 Laboratory Only Only, Adc Test [facility] 1.2.840.114 350.1.13.10 4.2.7.2.686 [id number] 2020-03-18 11:39:37 2020-03-18 11:54:37 Laboratory Only Only, Adc Test Chandan Chappell [facility] 1.2.840.114 350.1.13.10 4.2.7.2.686 [id number] [facility] 2020-03-18 11:45:00 2020-03-18 11:45:00 Outpatient Nishi STANLEYKATICHANDAN [facility] [id number] [facility] 2019-08-04 04:54:00 2019-08-04 04:54:00 Outpatient Nicholas-Mbayo _A_AH VFP VFP [id number] [facility] 2019-07-17 07:30:00 2019-07-17 07:30:00 Outpatient Nicholas-Mbayo _A_AH VFP VFP [id number] [facility] 2019-07-03 03:42:00 2019-07-03 03:42:00 Outpatient Nicholas-Mbayo _A_AH VFP VFP [id number] [facility] 2019-05-31 00:00:00 2019-05-31 00:00:00 Jaja Andrews o, BROADCAST CHECKER: [address] [facility], [address], [place] [address] , Ph. VFP [place] [facility] - VM_HOU_V@_ [place] [employer] [id number] [facility] 2019-04-05 07:21:00 2019-04-05 07:21:00 Outpatient Nicholas-Mbayo _A_AH VFP VFP [id number] [facility] 2019-04-05 07:21:00 2019-04-05 07:21:00 Outpatient Nicholas-Mbayo _A_AH VFP VFP [id number] [facility] Results Test Description Test Time Test Comments Results Resul t Comments Source - XR CHEST 1V 2023-08-18 14:51[facility] 1960 Sex: M Patient Name: DEVAUGHN OCAMPO Unit No: [id number] EXAMS: CPT CODE: [id number] XR CHEST 1V 42326 AP CHEST 1 VIEW COMPARISON: August 17, 2023 HISTORY: CHF FINDINGS: Left-sided pacemaker is noted. There is no focal lung consolidation. There is no pleural effusion. There is no pneumothorax. The cardiac silhouette is stable. There is no acute osseous abnormality. IMPRESSION: 1. No acute cardiopulmonary findings at 1451 Reported and signed by: Gibson Prieto MD CC: Benjamin Akins Technologist: Dudley Ham (RT)(CT) Transcrpt Date/Tm/Trnsp: 08/18/2023 (145) [email or web address] Orig Print D/T: S: 08/18/2023 (145) [facility] NAME: DEVAUGHN OCAMPO [address] PHYS: [place] [address] : 1960 AGE: 63 SEX: M LOC: Z.347 A PHONE #: [phone] EXAM DATE: 08/18/2023 STATUS: DIS IN FAX #: [phone] RADIOLOGY NO: PAGE 1 Signed Report - XR CHEST 1V 2023-08-18 14:51:00 [facility] 1960 Sex: M Patient Name: DEVAUGHN OCAMPO Unit No: [id number] EXAMS: CPT CODE: [id number] XR CHEST 1V 20326 AP CHEST 1 VIEW COMPARISON: August 17, 2023 HISTORY: CHF FINDINGS: Left-sided pacemaker is noted. There is no focal lung consolidation. There is no pleural effusion. There is no pneumothorax. The cardiac silhouette is stable. There is no acute osseous abnormality. IMPRESSION: 1. No acute cardiopulmonary findings at 1451 Reported and signed by: Gibson Prieto MD CC: Benjamin Akins Technologist: Dudley Ham (RT)(CT) Transcrpt Date/Tm/Trnsp: 08/18/2023 (1450) [id number] Orig Print D/T: S: 08/18/2023 (1451) [facility] NAME: DEVAUGHN OCAMPO [address] PHYS: [place] [address] : 1960 AGE: 63 SEX: M LOC: Z.347 A PHONE #: [phone] EXAM DATE: 08/18/2023 STATUS: DIS IN FAX #: [phone] RADIOLOGY NO: PAGE 1 Signed Report CBC W/AUTO [id number] 04:04:00* Test Item Value Reference Range Interpretation Comme nts WHITE BLOOD CELL (test code = WBC) 10.1 K/MM3 3.8-9.8 H RED BLOOD CELL (test code = RBC) 4.12 M/MM3 3.95-5.67 N HEMOGLOBIN (test code = HGB) 12.8 G/DL 12.4-16.7 N HEMATOCRIT (test code = HCT) 39.6 % 35.9-49.5 N MEAN CELL VOLUME (test code = MCV) 96 fL 81.7-96.1 N MEAN CELL HGB (test code = MCH) 31.1 pg 27.6-33.2 N MEAN CELL HGB CONCETRATION (test code = MCHC) 32.3 % 32.9-35.5 L RED CELL DISTRIBUTION WIDTH (test code = RDW) 14.6 % 12.1-15.2 N PLATELET COUNT (test code = PLT) 205 K/MM3 129-368 N MEAN PLATELET VOLUME (test c ode = MPV) 10.2 fl 7.4-10.4 N NEUTROPHIL % (test code = NT%) 65.6 % 43-75 N IMMATURE GRANULOCYTE % (test code = IG%) 0.3 % 0.0-2.0 N LYMPHOCYTE % (test code = LY%) 24.0 % 14-44 N MONOCYTE % (test code = MO%) 6.6 % 4-13 N EOSINOPHIL % (test code = EO%) 2.9 % 0-6 N BASOPHIL % (test code = BA%) 0.6 % 0-2 N NUCLEATED RBC % (test code = NRBC%) 0.0 % 0-1.0 N NEUTROPHIL # (test code = NT#) 6.64 K/mm3 2.0-7.6 N IMMATURE GRANULOCYTE # (test code = IG#) 0.03 x10 3/uL 0-0.03 N LYMPHOCYTE # (test code = LY#) 2.43 K/mm3 1.0-3.8 N MONOCYTE # (test code = MO#) 0.67 K/mm3 0.1-0.8 N EOSINOPHIL # (test code = EO#) 0.29 K/mm3 0.0-0.2 H BASOPHIL # (test code = BA#) 0.06 K/mm3 0.0-0.2 N NUCLEATED RBC # (test code = NRBC#) 0.00 K/mm3 0.0-0.1 N - XR CHEST [id number] 18:27:00 [facility] : 1960 Sex: M Patient Name: DEVAUGHN OCAMPO Unit No: [id number] EXAMS: CPT CODE: [id number] XR CHEST 1V 78059 AP CHEST 1 VIEW COMPARISON: None FINDINGS: Lungs are clear. Heart and mediastinal contours unremarkable. No pleural effusion or pneumothorax.No gross osseous pathology. Left-sided cardiac pacing device. IMPRESSION: No active pulmonary disease. at 1827 Reported and signed by: Theron Prieto MD CC: Benjamin Akins Technologist: Elizabeth (RT) Transcrpt Date/Tm/Trnsp: 08/17/2023 (1826) [email or web address] Orig Print D/T: S: 08/17/2023 (1829) [facility] NAME: DEVAUGHN OCAMPO [address] PHYS: Benjamin Hyatt MD [place] : 1960 AGE: 63 SEX: M LOC: Z.347 A PHONE #: [phone] EXAMDATE: 08/17/2023 STATUS: ADM IN FAX #: [phone] RADIOLOGY NO: PAGE 1 Signed Report- XR CHEST [id number] 18:27:00 [facility] : 1960 Sex: M Patient Name: DEVAUGHN OCAMPO Unit No: [id number] EXAMS: CPT CODE: [id number] XR CHEST 1V 43912 AP CHEST 1 VIEW COMPARISON: None FINDINGS: Lungs are clear. Heart and mediastinal contours unremarkable. No pleural effusion or pneumothorax.No gross osseous pathology. Left-sided cardiac pacing device. IMPRESSION: No active pulmonary disease. at 1827 Reported and signed by: Theron Prieto MD CC: Benjamin Akins Technologist: Belle Sauceda (RT) Transcrpt Date/Tm/Trnsp: 08/17/2023 (1826) [email or web address] Orig Print D/T: S: 08/17/2023 (1829) [facility] NAME: DEVAUGHN OCAMPO [address] PHYS: [place] [address] : 1960 AGE: 63 SEX: M LOC: [facility] A PHONE #: [phone] EXAMDATE: 08/17/2023 STATUS: DIS IN FAX #: [phone] RADIOLOGY NO: PAGE 1 Signed ReportCOMPREHENSIVE METABOLIC [id number] 06:55:00* Test Item Value Reference Range Interpretation Comme nts SODIUM (test code = NA) 142 mmol/L 136-145 N POTASSIUM (test code = K) 3.9 mmol/L 3.4-5.0 N CHLORIDE (test code = CL) 102 mmol/L 98-107 N CARBON DIOXIDE (test code = CO2) 29 mmol/L 21-32 N ANION GAP (test code = GAP) 11 GAP calc 4-15 N GLUCOSE (test code = GLU) 82 MG/DL 70-110 N BLOOD UREA NITROGEN (test code = BUN) 19 MG/DL 7-18 H GLOMERULAR FILTRATION RATE (test code = GFR) 52 estGFR >60 L The Glomerular Filtration Rate is a calculated parameterbased on serum Creatinine, patient age and sex. GFR valuesless than 60 mL/min/1.73 square meters are indicative ofChronic Kidney Disease. Values less than 15 mL/min/1.73square meters indicate Kidney failure. The calculation forGFR is based on the CKD-EPI (2020) calculation. This formulais race indifferent and is the recommended formula for GFRby the National Kidney Foundation for Adults.The GFR will not calculate if the sex is unknown or if thepatient's age is <18 years. CREATININE (test code = CREAT) 1.5 MG/DL 0.6-1.0 H TOTAL PROTEIN (test code = PROT) 7.6 G/DL 6.4-8.2 N ALBUMIN (test code = ALB) 3.7 G/DL 3.4-5.0 N GLOBULIN (test code = GLOB) 3.9 GM/dL ALBUMIN/GLOBULIN RATIO (test code = A/G) 1.0 RATIO 1.2-2.2 L CALCIUM (test code = CA) 9.5 MG/DL 8.5-10.1 N BILIRUBIN TOTAL (test code = BILT) 0.5 MG/DL 0.0-1.0 N SGOT/AST (test code = AST) 22 Unit/L 15-37 N SGPT/ALT (test code = ALT) 21 Unit/L 30-65 L ALKALINE PHOSPHATASE TOTAL (test code = ALKP) 66 Unit/L 50-136 N LIPID PROFILE (CORONARY RISK)2023-06-19 06:55:00* Test Item Value Reference Range Interpretation Comme nts TRIGLYCERIDES (test code = TRIG) 129 MG/DL 0-150 N CHOLESTEROL (test code = CHOL) 83 MG/DL 133-200 L CHOLESTEROL/HDL RATIO (test code = CHOLHDL) 2.86 RATIO See_Comment RISK ASSOC IATED WITH CHOL/HDL RATIOS: RISK MALE FEMALE1/2 AVERAGE 3.43 3.27AVERAGE 4.97 4.442X AVERAGE 9.55 7.053X AVERAGE 23.39 11.04 NOTE THAT THE REFERENCE VALUE IS RELATED TO RISK LEVELS ASRECOMMENDED BY THE [facility]ATIONAL [facility], [facility]G, AND [facility] IN[facility]. [Automated message] The system which generated this result transmitted reference range: 0-. The reference range was not used to interpret this result as normal/abnormal. HDL CHOLESTEROL (test code = HDL) 29 MG/DL See_Comment L [Automated messa ge] The system which generated this result transmitted reference range: 60-. The reference range was not used to interpret this result as normal/abnormal. NON-HDL CHOLESTEROL (test code = NHDL) 54 mg/dL <130 LIPOPROTEIN LDL (test code = LDL) 41 MG/DL 0-129 N LDL/HDL (test code = LDL/HDL) 1.41 Ratio See_Comment L [Automated messa ge] The system which generated this result transmitted reference range: 1.48-3.22 Avg. The reference range was not used to interpret this result as normal/abnormal. [id number] 06:55:00* Test Item Value Reference Range Interpretation Comme nts MAGNESIUM (test code = MAG) 1.9 MG/DL 1.8-2.4 N CBC W/AUTO [id number] 06:37:00* Test Item Value Reference Range Interpretation Comme nts WHITE BLOOD CELL (test code = WBC) 7.8 K/mm3 3.5-11.0 N RED BLOOD CELL (test code = RBC) 4.57 M/mm3 4.70-6.10 L HEMOGLOBIN (test code = HGB) 14.0 G/DL 12.3-15.9 N HEMATOCRIT (test code = HCT) 43.6 % 35.8-46.7 N MEAN CELL VOLUME (test code = MCV) 95.4 Fl 86.3-98.9 N MEAN CELL HGB (test code = MCH) 30.6 pg 28.9-34.4 N MEAN CELL HGB CONCETRATION (test code = MCHC) 32.1 G/DL 32.1-34.5 N RED CELL DISTRIBUTION WIDTH (test code = RDW) 13.7 SD 11.5-14.5 N PLATELET COUNT (test code = PLT) 267 K/mm3 150-450 N MEAN PLATELET VOLUME (test c ode = MPV) 10.10 fL 7.0-9.6 H NEUTROPHIL % (test code = NT%) 61.1 % 40-76 N IMMATURE GRANULOCYTE % (test code = IG%) 0.4 % 0.0-5.0 N LYMPHOCYTE % (test code = LY%) 28.5 % 20.5-51.1 N MONOCYTE % (test code = MO%) 6.8 % 1.7-9.3 N EOSINOPHIL % (test code = EO%) 2.4 % 0.0-6.0 N BASOPHIL % (test code = BA%) 0.8 % 0.0-2.0 N NUCLEATED RBC % (test code = NRBC%) 0.0 /100WBC% 0.0-1.0 N NEUTROPHIL # (test code = NT#) 4.8 K/mm3 1.8-7.6 N IMMATURE GRANULOCYTE # (test code = IG#) 0.03 x10 3/uL 0.00-0.03 N LYMPHOCYTE # (test code = LY#) 2.2 K/mm3 0.6-3.0 N MONOCYTE # (test code = MO#) 0.5 K/mm3 0.2-1.5 N EOSINOPHIL # (test code = EO#) 0.2 K/mm3 0.0-0.4 N BASOPHIL # (test code = BA#) 0.1 K/mm3 0.0-0.2 N NUCLEATED RBC # (test code = NRBC#) 0.0 K/mm3 0.00-0.01 N PROTHROMBIN [id number] 06:35:00* Test Item Value Reference Range Interpretation Comme nts PT PATIENT (test code = PTP) 12.1 SECONDS 9.3-12.9 N INTERNATIONAL NORMAL RATIO (test code = INR) 1.10 INR Unit 0.8-1.2 N TARGET INR BY INDICATION Indication INR1. Prophylaxis of venous thrombosis 2.0 - 3.0 (orthopedic surgery), Prophylaxis of venous thrombosis (other than high-risk surgery), Treatment of Deep Vein Thrombosis/Pulmonary Embolism, Prevention of systemic embolism - Tissue heart valves, Acute Myocardial Infarction (to prevent systemic embolism), Valvular heart disease, Acute Myocardial Infarction (to prevent systemic embolism), Valvular heart disease, Atrial Fibrillation, Bileaflet mechanical valve in aortic position.2. Mechanical prosthetic valves (high risk), 2.5 - 3.5 Presence of Lupus Anticoagulant or Antiphospholipid Antibodies, Prevention of systemic embolism - Acute Myocardial Infarction (to prevent recurrent infarct). Notes Recent TTE results:Recent TTE results:Recent TTE results: Date/Time Note Provider Source 2024-05-26 13:00:00 Members Preferred Language Malaysian Patient Currently Located in their home state of [place], YES ### HISTORY OF PRESENT ILLNESS Confirmed the following past medical history:Chronic Kidney DiseaseCoronary Artery DiseaseStrokeObstructive Sleep Apnea CHF COMMUNITY PROVIDER DETAILS Which primarily manages your CHF?: RAILROAD DETECTIVE C Programmer name: Dr. Roxie Oscar MD @ [facility] C Programmer office phone number: [address] [place], [address] Last Specialist/PCP appointment: 2024-03-13 Next Specialist/PCP appointment: 2024-06-27 Additional Provider Name 1: EP Dr. Benjamin Akins MD @ [facility]- placed ICD which is now managed by Dr. Hernandez Next provider appointment notes: no more f/u visits w/ Dr. Akins at this time, ICD readings go to Dr. Hernandez Additional Provider Name 2: PCP: PCP Glynn Stone DO Additional Provider 2 office phone number: [facility] ([facility]) [address] [place] [address] Additional Provider 2 last appointment: 2024-05-25 Additional Provider 2 next appointment: 2024-08-22 Next provider appointment notes: CT abdomen on 05/29, f/u August PAST MEDICAL HISTORY (completed during inital 30 days) CHF Classification: HFrEF TANKROOM TENDER: Yes ICD: Yes CARDIAC DEVICE Details: TANKROOM TENDER-D d/t RBBB Duration of Diagnosis at time of Enrollment: LESS than 1 YEAR Etiology: Nonischemic Cardiac Diagnostic Testing Results: 05/12/2023 echocardiogram: - ejection fraction around 30-35% - mild mitral regurgitation - four-chamber enlargement - The echo was technically difficult. Extremity Swelling: Yes Abdominal Swelling/Bloating: Yes Dyspnea with Exertion: Yes Orthopnea: No OTHER: Yes Other Baseline Details: - Edema: LE edema to feet and legs - GARCIA: reports SOB w/ walking in a parking lot or climbing a flight of stairs. Uses a cane d/t back issues. Additional CHF Diagnosis Details (optional): HFrEF (EF 30-35%) Stage: C Class: III Device: TANKROOM TENDER-D Last Ischemic Eval: June 2023 FINAL DIAGNOSES: Dilated cardiomyopathy, ejection fraction 20%, left ventricular end-diastolic pressure of 20, nonobstructive coronary artery disease. C Programmer: Dr. Oscar @ [facility] ASE/Root Cause: April 2023, new CHF diagnosis, RBBB Other pertinent cardiac history: HTN, HLD, Nonobstructive CAD, NAY w/o CPAP, COPD, CVA, CKD Acute Event Details: - April 2023, new CHF diagnosis, RBBB - September: TANKROOM TENDER-D placed. Chronic Kidney Disease: Yes COPD: Yes Coronary Artery Disease: Yes Hypertension: Yes Obstructive Sleep Apnea: Yes Stroke: Yes Optional, Additional Past Medical History: Stroke 35 years ago MEDICATION Notable Medication Details: - 02/22 pending review on 03/08. He states he takes Lasix BID, not home to review dose. - 03/08: med list updated and reviewed. On 03/21 GDMT - 03/22: no medication changes - 04/12: changed Metop Tartrate to Metop Succ by Balbina, tolerating change well. Now on 04/18 GDMT - 04/26: no medication changes - 05/26: PCP started dicyclomine, med list updated. Member's Understanding of Medications: Good Adherent to their CHF medications?: Yes GDMT- Beta Blockerat Enrollment: NO GDMT: ACEi/ARBi/ARB at Enrollment: NO GDMT: ARNI at Enrollment: YES GDMT: SGLT-2 at Enrollment: YES GDMT: MRA at Enrollment: NO VITALS Feet: 5 Inches: 10 WEIGHT (pounds): 171 <hr> BODY MEASUREMENTS:<em>Patient Height in centimeters</em>: 177.80<em>Patient Weight in kilograms</em>: 77.57<em>Patient Body Mass Index</em>: 24.53 Recent Weight:02/22: states checks wt daily, baseline wt 182-183lbs. States he has lost 45lbs in 4 months taking Mounjaro for wt loss. Sent BT scale today.03/08: 188lbs, states wt is up this week as he has been eating a lot of cheese. Baseline wt per BT is consistent w/ his reported baseline 182-185lbs Denies water retention today.03/22: 190lbs, this is up some from our previous visit, which was up from his baseline 182-183lbs. See assessment for more details.04/12: 673pti6/: 571aqh5/: 600zwc1/:171lbs DRY WEIGHT: 183 lbs BLOOD PRESSURE Select BP CUFF Type: Upper Arm-Regular Recent BP Readings02/22: checks his BP daily. 116/82, 85 today03/08: 122/83, 832/5: 126/84, 852/26: 108/70, 83, 98/74, 79; 108/71, 863/12: 125/81, 108 (previous days 70-80's, 92 yesterday)05/17: 107/754/11: 111/76, 85; 104/70, 79 Oxygen saturation: 96% Digital Scale: Yes Automatic BP Cuff: Yes Section Completed: Yes EDUCATION Orientation/review of Heart Failure Action Plan, Zones, and Contingency Plan: Yes Contingency plan: Yes CHF s/sx and symptom tracker: Yes Reviewed [facility]: Yes Orientation provided to BodyTrace LTE scale: Yes Reviewed diet/nutrition best practices: Yes Education notes: Education Reviewed: -Daily wt education and BT Scale: 02/23/24 - Welcome packet/Cont plan: 03/08/24 - Monitoring S/Sx: 03/08/24 - BP monitoring: - Low sodium: 03/22/24, 04/26/24 - Medications: 03/29/24 (CHF BROADCAST CHECKER visit) - GDMT role: 03/29/24 (CHF BROADCAST CHECKER visit) - Living w/ CHF: - Steps to a Healthy Heart: 05/17/24: - Education deferred for clinical f/u. Section Completed: Yes CHF ASSESSMENT & PLAN Contingency Plan Details: The member has agreed with the following contingency plan for worsening symptoms of heart failure* - weight increase >3lbs overnight or >5lbs in a week - extremity swelling especially in the feet or ankles - increased shortness of breath with activities or laying flat IN THE EVENT OF WORSENING SYMPTOMS THE MEMBER WILLCall entertainment lawyer of PCP for guidanceContinue taking your medications as prescribed until you speak with your doctorIf your doctors are unreachable, call [phone] to speak with [facility], available 24/7Call 911 for difficulty breathing, severe dizziness, or chest pain that does not resolve with 5 minutes of restTakes furosemide 40 mg BID. Take additional 40 mg tablet for a total of 80 mg Qam and 40 mg Qpm if he gains more than 3 lbs in a day or 5 lbs in a week PCP notified of enrollment: Yes Education Material Received: Yes Scale Received: Yes [facility] Provider Visit Details: Humberto lozada/ Balbina 2/12/25: Notes to RN: - Appt with PCP next Tuesday 04/04. He also [facility] as well that he sees [facility] 6 months. Some of his medications are prescribed through his [facility] provider and some are through outside providers - His weight today was 184.3 lbs. He was 187.8 lbs yesterday. He states he was previously very constipated and had multiple large BMs this morning. - He endorses LE edema, abdominal edema, and GARCIA. Denies orthopnea or chest pain. Hx COPD. His currently diuretic regimen is furosemide 40 mg BID. He does not currently have a contingency plan in place. We discussed a contingency plan of taking an additional 40 mg tablet in the morning for a total of furosemide 80 mg Qam and 40 mg Qpm if he gains more than 3 lbs in day or 5 lbs in a week. He is agreeable. I will send an updated rx to his pharmacy with more tablets so he does not run out. - He is currently on 2 of 4 pillars of GDMT, Entresto and Jardiance. He is currently on metoprolol tartrate. We discussed the indication for switching to metoprolol succinate. He is agreeable. I will send an rx for metoprolol succinate 100 mg daily to his pharmacy. - We will plan on starting MRA at our next visit. Can also consider uptitrating Entresto after that. Medication titration: - STOP metoprolol tartrate 50 mg BID - START metoprolol succinate 100 mg daily - CHANGE furosemide 40 mg BID. Take additional 40 mg tablet for a total of 80 mg Qam and 40 mg Qpm if he gains more than 3 lbs in a day or 5 lbs in a week. 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 He endorses LE edema and GARCIA. States his abdominal edema is now gone. - He is currently on 3 of 4 pillars of GDMT, Entresto, Jardiance, and now metoprolol succinate. - I reviewed recent blood work, BMP 04/19/24: Sodium: 142, Potassium: 4.0, sCr: 1.14, GFR: 71. A1c 04/19/24: 5.3% - We discussed the indication for starting MRA, he is agreeable to start spironolactone 25 mg daily. We also discussed reducing his potassium supplementation. He currently takes potassium gluconate 550 mg 2 tablets twice daily. I instructed him to reduce dose to 2 tablets daily. I will send rx for spironolactone to his pharmacy. He is agreeable to get follow up BMP in 1-2 weeks after starting medication. Medication titration: - START spironolactone 25 mg daily - CHANGE potassium gluconate to 550 mg 2 tablets daily Orders placed: - BMP ordered (instructed him to get lab drawn in 1-2 weeks after starting medication) Follow up in 1 month: not scheduled, RN placed ad hoc f/u w/ Balbina 05/18 d/t recent inpatient admission for BON after starting Spironolactone. 05/18 f/u [place]/ Balbina: Notes to RN: - His weight today was 175.2 lbs, he is down -7 lbs since our last visit. - He states he did not cut back his potassium as discussed at our last visit. He states he was taking 2 tablets BID at the time of the lab draw. We discussed decreasing his dose to 2 tablets Q am and 1 tablet Qpm. He is agreeable. - He is feeling well today. BP normotensive. Will continue to monitor, we discussed potentially needing to decrease his loop diuretic. Medication titration: - CHANGE potassium gluconate to 550 mg 2 tablets Qam and 1 tablet Qpm Will follow up with DM CHF BROADCAST CHECKER in 1 month: scheduled 06/14 Member Stated Goals: Learn more about his heart condition Establish self-care monitoring routine with membe. STATUS- COMPLETE Increase members knowledge of CHF symptoms/zones. STATUS- IN PROGRESS Increase members knowledge of lifestyle accommodations r/t CHF. STATUS- IN PROGRESS MEMBER GOALS- Learn more about his heart condition STATUS- IN PROGRESS PLAN: - States newly diagnosed w/ CHF in April last year. He was found to have RBBB and had TANKROOM TENDER-D placed last September. - He f/u w/ cardio Dr. Oscar w/ every 3 month f/u visits - States symptoms mostly well managed, but does report LE edema and some GARCIA w/ stairs or parking lots Visit Summary: - States feeling ok. S/p April admission for BON followed by ER visit this past weekend for nausea. - Saw his PCP yesterday and they think his Mounjaro is the cause for his nausea and abd discomfort and maybe the BON. His Mounjaro has been stopped. He is going for CT abdomen Monday 05/29 and they are referring him to a mold stacker. He will f/u w/ PCP in August. He would like to go back on a maintenance dose of Mounjaro for his wt loss. His PCP wants him to hold off until his f/u in August to re-evaluate. - Feeling well from CHF perspective, wt stable 171lbs and BP 104/70, 79. - Has cardio f/u 06/27 - CHF BROADCAST CHECKER f/u w/ Balbina 06/14 - CHF RN f/u scheduled 06/21. - will plan to review final education in June and anticipate graduation at end of June unless other clinical needs arise. Member action items:- Low sodium diet/Fluid restriction: - Continue medications - Routine f/u w/ entertainment lawyer - Monitor wt/BP/sx, report any changes/progression of symptoms RN action items:- Routine RN visits for symptoms checks and support - Remote wt monitoring - Review program education as applicable to member. - Referrals: NONE F/u during next call:- Review: WT and BP log - F/u on provider appts: 06/14 CHF BROADCAST CHECKER visit w/ Balbina - Education: chapter 5 and 6 - Schedule: NONE - Other member needs: NONE - STARS: States he is not a diabetic, takes Tirzepetide for wt loss and Jardiance for HF. - MM: Metop Succinate started, medication cont plan ordered, Spironolactone started. Section Completed: Yes CARE COORDINATION AND SCHEDULING External Care Coordination : Yes Jennifer Javed [facility] 2024-05-18 12:00:00 ASSESSMENT SUMMARY DEVAUGHN ARRIAGA is a 63 year old man seen today by [facility] for a [facility]. Patient is a 63 y/o male who is being followed up with for management of uncontrolled Heart Failure by [facility] Members Preferred Language Malaysian Patient Currently Located in their home state of [place], YES HEART FAILURE CLINIC HISTORY OF PRESENT ILLNESS Visit Summary Vital Signs:- BP at time of visit: 117/75 - HR at time of visit: 73 bpm - Weight at time of visit: 175.2 lbs (182 lbs last visit) - Dry Weight: 183-184 lbs Plan:- Followed by entertainment lawyer Dr. Roxie Oscar MD and EP Dr. Benjamin Akins MD - Currently enrolled in DM CHF program and will continue to follow. - LIS 100% - Visit Summary: - Diagnosed with HFrEF EF 30-35% in April 2023. He had a TANKROOM TENDER-D placed at the end of last year - Follows with community PCP and he also follows with a [facility] PCP as well that he sees every 6 months. Some of his medications are prescribed through his [facility] provider and some are through outside providers - Current smoker but he has been cutting back with help of verenicline. - His weight today was 175.2 lbs, he is down -7 lbs since our last visit. - He is currently now on 4 of 4 pillars of GDMT, Entresto, Jardiance, and now metoprolol succinate. - At our last visit, we discussed the indication for starting MRA, he was agreeable to start spironolactone 25 mg daily. We also discussed reducing his potassium supplementation to 2 tablets daily. He started the Spironolactone and within about 2 days he started to feel dizzy and lightheaded. On 05/06 he went to the ER, admitted for BON @ [facility]. RN reviewed records: K+ 4.9 on 05/06 and 4.2 on 05/07, Creatinine 1.8 on 05/06 and 1.5 on 05/07, GFR 41 on 05/06 and 51 on 05/07. The hospital did not make any changes to any of his meds and he had f/u w/ his PCP. - He went for labs at [facility] as ordered, [facility] 05/11/24: Sodium: 140, Potassium: 4.2, sCr: 1.18, GFR: 68, calcium: 8.5 (L) - He states he did not cut back his potassium as discussed at our last visit. He states he was taking 2 tablets BID at the time of the lab draw. We discussed decreasing his dose to 2 tablets Q am and 1 tablet Qpm. He is agreeable. - He is feeling well today. BP normotensive. Will continue to monitor, we discussed potentially needing to decrease his loop diuretic. - Medication titration: - CHANGE potassium gluconate to 550 mg 2 tablets Qam and 1 tablet Qpm - Orders placed: - none - Will follow up with DM CHF BROADCAST CHECKER in 1 month Current Symptom Review No Change From Baseline Noted: Yes Chronic Kidney Disease: Yes COPD: Yes Coronary Artery Disease: Yes Obstructive Sleep Apnea: Yes Stroke: Yes Optional, Additional Past Medical History: Stroke 35 years ago DIAGNOSIS XMWFSOSE92.20 - Unspecified systolic (congestive) heart failure GENERAL ASSESSMENT* Supplemental oxygen status: Room Air ⭐ Vaccinations (FLU) CHF Classification: HFrEF Echo Results: 05/12/2023 TTE: LVEF 30-35% mild mitral regurgitation four-chamber enlargement The echo was technically difficult. NYHA Classification: III AHA Staging: C Etiology: Nonischemic Heart Failure Etiology Hx nonobstructive CAD Cardiac Rhythm History: VT/SVT TANKROOM TENDER: Yes ICD: Yes CARDIAC DEVICE Details: TANKROOM TENDER-D d/t RBBB Supplemental oxygen status: Room Air Acute Event Details: - April 2023, new CHF diagnosis, RBBB - September: TANKROOM TENDER-D placed. Extremity Swelling: Yes Abdominal Swelling/Bloating: Yes Dyspnea with Exertion: Yes Orthopnea: No OTHER: Yes CURRENT HEART FAILURE MEDICATIONS: - Compliant with current GDMT of: - BB: Metoprolol Succinate 100 mg daily - PAWEL/ARB/ARNI: Entresto 24/26 mg BID - Aldosterone antagonist: spironolactone 25 mg daily - SGLT2 vijay: Jardiance 10 mg daily - Other relevant cardiac medications: - none - Compliant with Diuretic of: - furosemide 40 mg BID - Contingency - potassium gluconate 550 mg 2 tablets Qam and 1 tablet Qpm - Compliant with anticoagulation/ASA/Statin: - aspirin 81 mg daily - atorvastatin calcium 80 mg daily - clopidogrel bisulfate 75 mg daily Labs Notes: - Most recent labs: - [facility] 05/11/24: Sodium: 140, Potassium: 4.2, sCr: 1.18, GFR: 68, calcium: 8.5 (L) - [facility] 04/19/24: Sodium: 142, Potassium: 4.0, sCr: 1.14, GFR: 71 - A1c 04/19/24: 5.3% - BMP 10/28/23: Sodium: 141, Potassium: 3.5, Creatinine: 1.07, GFR: 52 - A1c 10/28/23: 5.7% Reviewed importance of daily weights: Yes Dx: I50.20 - Unspecified systolic (congestive) heart failure Notes for I50.20: Discussed member's CHF during visit. * 05/12/2023 TTE: LVEF 30-35%Compliant with current GDMT of: Entresto, jardiance, metoprolol succinate, spironolactone, furosemideCounseled on the importance of daily weights on BodyTrace scale and notification of provider for a >2lb weight gain.Followed by cardiologistCurrently enrolled in DM CHF program and will continue to follow Patient to follow up with DM CHF BROADCAST CHECKER in: 1 month 2024 APPOINTMENT CPT CODE Please indicate how this visit was conducted: Audio-Only Please select the reason why an audio-only visit is being performed: Declines Video Please record the total amount of time you spent on this patient visit- Total time includes time spent on preparation, speaking with the patient, documentation, and post-visit coordination of care - This is limited to time spent ON THE DATE OF SERVICE (e.g. does not include time spent on days prior to or after the date of service) 20 - 29 minutes Did you review the patient's prescription and non-prescription drugs, vitamins, herbal remedies, and other supplements, AND is the accompanying medication list documented in the medical record?: No Has the patient been discharged within the last 30 days?: No [facility] 2024-[facility] 13:00:00 Members Preferred Language Malaysian Patient Currently Located in their home state of [place], YES ### HISTORY OF PRESENT ILLNESS Confirmed the following past medical history:Chronic Kidney DiseaseCoronary Artery DiseaseStrokeObstructive Sleep Apnea CHF COMMUNITY PROVIDER DETAILS Which primarily manages your CHF?: RAILROAD DETECTIVE C Programmer name: Dr. Roxie Oscar MD @ [facility] C Programmer office phone number: [phone] [place], [address] Last Specialist/PCP appointment: 2024-03-13 Next Specialist/PCP appointment: 2024-06-27 Additional Provider Name 1: EP Dr. Benjamin Akins MD @ [facility]- placed ICD which is now managed by Dr. Hernandez Next provider appointment notes: no more f/u visits w/ Dr. Akins at this time, ICD readings go to Dr. Hernandez Additional Provider Name 2: PCP: PCP Glynn Stone DO Additional Provider 2 office phone number: [facility] ([facility]) [address] [address] Additional Provider 2 last appointment: 2024-05-11 Additional Provider 2 next appointment: 2024-05-25 Next provider appointment notes: scheduled for 6 month f/u visit Additional Provider Name 3: [facility] Additional Provider 3 last appointment: 2024-04-26 PAST MEDICAL HISTORY (completed during inital 30 days) CHF Classification: HFrEF TANKROOM TENDER: Yes ICD: Yes CARDIAC DEVICE Details: TANKROOM TENDER-D d/t RBBB Duration of Diagnosis at time of Enrollment: LESS than 1 YEAR Etiology: Nonischemic Cardiac Diagnostic Testing Results: 05/12/2023 echocardiogram: - ejection fraction around 30-35% - mild mitral regurgitation - four-chamber enlargement - The echo was technically difficult. Extremity Swelling: Yes Abdominal Swelling/Bloating: Yes Dyspnea with Exertion: Yes Orthopnea: No OTHER: Yes Other Baseline Details: - Edema: LE edema to feet and legs - GARCIA: reports SOB w/ walking in a parking lot or climbing a flight of stairs. Uses a cane d/t back issues. Additional CHF Diagnosis Details (optional): HFrEF (EF 30-35%) Stage: C Class: III Device: TANKROOM TENDER-D Last Ischemic Eval: June 2023 FINAL DIAGNOSES: Dilated cardiomyopathy, ejection fraction 20%, left ventricular end-diastolic pressure of 20, nonobstructive coronary artery disease. C Programmer: Dr. Oscar @ [facility] ASE/Root Cause: April 2023, new CHF diagnosis, RBBB Other pertinent cardiac history: HTN, HLD, Nonobstructive CAD, NAY w/o CPAP, COPD, CVA, CKD Acute Event Details: - April 2023, new CHF diagnosis, RBBB - September: TANKROOM TENDER-D placed. Chronic Kidney Disease: Yes COPD: Yes Coronary Artery Disease: Yes Hypertension: Yes Obstructive Sleep Apnea: Yes Stroke: Yes Optional, Additional Past Medical History: Stroke 35 years ago MEDICATION Notable Medication Details: - 02/22 pending review on 03/08. He states he takes Lasix BID, not home to review dose. - 03/08: med list updated and reviewed. On 03/21 GDMT - 03/22: no medication changes - 04/12: changed Metop Tartrate to Metop Succ by Balbina, tolerating change well. Now on 04/18 GDMT - 3/12: no medication changes Member's Understanding of Medications: Good Adherent to their CHF medications?: Yes GDMT- Beta Blockerat Enrollment: NO GDMT: ACEi/ARBi/ARB at Enrollment: NO GDMT: ARNI at Enrollment: YES GDMT: SGLT-2 at Enrollment: YES GDMT: MRA at Enrollment: NO VITALS Feet: 5 Inches: 10 WEIGHT (pounds): 175 <hr> BODY MEASUREMENTS:<em>Patient Height in centimeters</em>: 177.80<em>Patient Weight in kilograms</em>: 79.38<em>Patient Body Mass Index</em>: 25.11 Recent Weight:02/22: states checks wt daily, baseline wt 182-183lbs. States he has lost 45lbs in 4 months taking Mounjaro for wt loss. Sent BT scale today.03/08: 188lbs, states wt is up this week as he has been eating a lot of cheese. Baseline wt per BT is consistent w/ his reported baseline 182-185lbs Denies water retention today.03/22: 190lbs, this is up some from our previous visit, which was up from his baseline 182-183lbs. See assessment for more details.04/12: [id number]: 063mwo0/2: 175lbs DRY WEIGHT: 183 lbs BLOOD PRESSURE Select BP CUFF Type: Upper Arm-Regular Recent BP Readings02/22: checks his BP daily. 116/82, 85 today03/08: 122/83, 832/5: 126/84, 85/: 108/70, 83, 98/74, 79; 108/71, 863/12: 125/81, 108 (previous days 70-80's, 92 yesterday)05/17: 107/75 Oxygen saturation: 96% Digital Scale: Yes Automatic BP Cuff: Yes Section Completed: Yes EDUCATION Orientation/review of Heart Failure Action Plan, Zones, and Contingency Plan: Yes Contingency plan: Yes CHF s/sx and symptom tracker: Yes Reviewed [facility]: Yes Orientation provided to BodyTrace LTE scale: Yes Reviewed diet/nutrition best practices: Yes Education notes: Education Reviewed: -Daily wt education and BT Scale: 02/23/24 - Welcome packet/Cont plan: 03/08/24 - Monitoring S/Sx: 03/08/24 - BP monitoring: - Low sodium: 03/22/24, 04/26/24 - Medications: 03/29/24 (CHF BROADCAST CHECKER visit) - GDMT role: 03/29/24 (CHF BROADCAST CHECKER visit) - Living w/ CHF: - Steps to a Healthy Heart: 05/17/24: - Education deferred for clinical coordination. Section Completed: Yes CHF ASSESSMENT & PLAN Contingency Plan Details: The member has agreed with the following contingency plan for worsening symptoms of heart failure* - weight increase >3lbs overnight or >5lbs in a week - extremity swelling especially in the feet or ankles - increased shortness of breath with activities or laying flat IN THE EVENT OF WORSENING SYMPTOMS THE MEMBER WILLCall entertainment lawyer of PCP for guidanceContinue taking your medications as prescribed until you speak with your doctorIf your doctors are unreachable, call [phone] to speak with [facility] team, available 24/7Call 911 for difficulty breathing, severe dizziness, or chest pain that does not resolve with 5 minutes of restTakes furosemide 40 mg BID. Take additional 40 mg tablet for a total of 80 mg Qam and 40 mg Qpm if he gains more than 3 lbs in a day or 5 lbs in a week PCP notified of enrollment: Yes Education Material Received: Yes Scale Received: Yes [facility] Provider Visit Details: Established neville/ Balbina 03/29/24: Notes to RN: - Appt with PCP next Tuesday 04/04. He also [facility] that he [facility] 6 months. Some of his medications are prescribed through his [facility] provider and some are through outside providers - His weight today was 184.3 lbs. He was 187.8 lbs yesterday. He states he was previously very constipated and had multiple large BMs this morning. - He endorses LE edema, abdominal edema, and GARCIA. Denies orthopnea or chest pain. Hx COPD. His currently diuretic regimen is furosemide 40 mg BID. He does not currently have a contingency plan in place. We discussed a contingency plan of taking an additional 40 mg tablet in the morning for a total of furosemide 80 mg Qam and 40 mg Qpm if he gains more than 3 lbs in day or 5 lbs in a week. He is agreeable. I will send an updated rx to his pharmacy with more tablets so he does not run out. - He is currently on 2 of 4 pillars of GDMT, Entresto and Jardiance. He is currently on metoprolol tartrate. We discussed the indication for switching to metoprolol succinate. He is agreeable. I will send an rx for metoprolol succinate 100 mg daily to his pharmacy. - We will plan on starting MRA at our next visit. Can also consider uptitrating Entresto after that. Medication titration: - STOP metoprolol tartrate 50 mg BID - START metoprolol succinate 100 mg daily - CHANGE furosemide 40 mg BID. Take additional 40 mg tablet for a total of 80 mg Qam and 40 mg Qpm if he gains more than 3 lbs in a day or 5 lbs in a week. Will follow up with DM CHF BROADCAST CHECKER in 1 month: scheduled 05/03 05/03 f/jessica lozada/ Balbina: Notes to RN: - His weight today was 182.9 lbs. He endorses LE edema and GARCIA. States his abdominal edema is now gone. - He is currently on 3 of 4 pillars of GDMT, Entresto, Jardiance, and now metoprolol succinate. - I reviewed recent blood work, BMP 04/19/24: Sodium: 142, Potassium: 4.0, sCr: 1.14, GFR: 71. A1c 04/19/24: 5.3% - We discussed the indication for starting MRA, he is agreeable to start spironolactone 25 mg daily. We also discussed reducing his potassium supplementation. He currently takes potassium gluconate 550 mg 2 tablets twice daily. I instructed him to reduce dose to 2 tablets daily. I will send rx for spironolactone to his pharmacy. He is agreeable to get follow up BMP in 1-2 weeks after starting medication. Medication titration: - START spironolactone 25 mg daily - CHANGE potassium gluconate to 550 mg 2 tablets daily Orders placed: - BMP ordered (instructed him to get lab drawn in 1-2 weeks after starting medication) Follow up in 1 month: not scheduled, RN placed ad hoc f/u neville/ Balbina 05/18 d/t recent inpatient admission for BON after starting Spironolactone. Member Stated Goals: Learn more about his heart condition Establish self-care monitoring routine with membe. STATUS- COMPLETE Increase members knowledge of CHF symptoms/zones. STATUS- IN PROGRESS Increase members knowledge of lifestyle accommodations r/t CHF. STATUS- IN PROGRESS MEMBER GOALS- Learn more about his heart condition STATUS- IN PROGRESS PLAN: - States newly diagnosed w/ CHF in April last year. He was found to have RBBB and had TANKROOM TENDER-D placed last September. - He f/u w/ cardio Dr. Oscar w/ every 3 month f/u visits - States symptoms mostly well managed, but does report LE edema and some GARCIA w/ stairs or parking lots Visit Summary: - States he started Spironolactone after 05/03 visit w/ Balbina, 25mg daily. Reports he started not feeling well on 05/06 and went to ER, admitted for BON @ [facility]. RN reviewed records: K+ 4.9 on 05/06 and 4.2 on 05/07, Creatinine 1.8 on 05/06 and 1.5 on 05/07, GFR 41 on 05/06 and 51 on 05/07. - He has since DC, no changes to any of his meds and he had f/u w/ his PCP. - States he did not cut back his potassium as discussed w/ Balbina as he did not realize he was supposed. - He went for labs at [facility] as ordered by Balbina last week. - He is feeling well today. - Reviewed BP lo's/70-90's last week. Reports yesterday it was 97/70 and today 107/75. Denies feeling any dizziness. - CHF BROADCAST CHECKER planned to f/u in 4 weeks but no f/u scheduled at this time. I placed him on schedule for visit tomorrow 05/18 given his reported hospital admission for BON following Spironolactone. - CHF RN f/u next week on 05/26 after he sees his PCP on 05/25. - Anticipating 1 more education visit and graduation in June unless continued clinical needs. Member action items:- Low sodium diet/Fluid restriction: - Continue medications - Routine f/u w/ entertainment lawyer - Monitor wt/BP/sx, report any changes/progression of symptoms RN action items:- Routine RN visits for symptoms checks and support - Remote wt monitoring - Review program education as applicable to member. - Referrals: NONE F/u during next call:- Review: WT and BP log - F/u on provider appts: 05/18 CHF BROADCAST CHECKER visit w/ Balbina - Education: chapter 5 and 6 - Schedule: NONE - Other member needs: NONE - STARS: States he is not a diabetic, takes Tirzepetide for wt loss and Jardiance for HF. - MM: Metop Succinate started, medication cont plan ordered, Spironolactone started. Jennifer Javed [facility] 2024-05-03 12:00:00 ASSESSMENT SUMMARY DEVAUGHN ARRIAGA is a 63 year old man seen today by [facility] for a [facility] Visit. Patient is a 63 y/o male who is being followed up with for management of uncontrolled Heart Failure by [facility] s Heart Failure Clinic Members Preferred Language Malaysian Patient Currently Located in their home state of [place], YES HEART FAILURE CLINIC HISTORY OF PRESENT ILLNESS Visit Summary Vital Signs:- BP at time of visit: 111/74 - HR at time of visit: 76 bpm - Weight at time of visit: 182.9 lbs (184.3 lbs last visit) - Dry Weight: 183-184 lbs Plan:- Followed by entertainment lawyer Dr. Roxie Oscar MD and EP Dr. Benjamin Akins MD - Currently enrolled in DM CHF program and will continue to follow. - LIS 100% - Visit Summary: - Diagnosed with HFrEF EF 30-35% in April 2023. He had a TANKROOM TENDER-D placed at the end of last year - Follows with community PCP and he also follows with [facility] as well that he sees every 6 months. Some of his medications are prescribed through his [facility] provider and some are through outside providers - Current smoker but he has been cutting back with help of verenicline. - His weight today was 182.9 lbs. He endorses LE edema and GARCIA. States his abdominal edema is now gone. - He is currently on 3 of 4 pillars of GDMT, Entresto, Jardiance, and now metoprolol succinate. - I reviewed recent blood work, BMP 04/19/24: Sodium: 142, Potassium: 4.0, sCr: 1.14, GFR: 71. A1c 04/19/24: 5.3% - We discussed the indication for starting MRA, he is agreeable to start spironolactone 25 mg daily. We also discussed reducing his potassium supplementation. He currently takes potassium gluconate 550 mg 2 tablets twice daily. I instructed him to reduce dose to 2 tablets daily. I will send rx for spironolactone to his pharmacy. He is agreeable to get follow up BMP in 1-2 weeks after starting medication. - Medication titration: - START spironolactone 25 mg daily - CHANGE potassium gluconate to 550 mg 2 tablets daily - Orders placed: - BMP ordered (instructed him to get lab drawn in 1-2 weeks after starting medication) - Will follow up with DM CHF BROADCAST CHECKER in 1 month Current Symptom Review No Change From Baseline Noted: Yes Chronic Kidney Disease: Yes COPD: Yes Coronary Artery Disease: Yes Obstructive Sleep Apnea: Yes Stroke: Yes Optional, Additional Past Medical History: Stroke 35 years ago DIAGNOSIS [id number] - Supraventricular tachycardia, uaefxrffypiH64.20 - Unspecified systolic (congestive) heart gekdebiF98.9 - Bipolar disorder, ozqurqqnhmhY22.1 - Secondary entghbiffnvjwreisnB60.9 - Chronic obstructive pulmonary disease, unspecified GENERAL ASSESSMENT* Supplemental oxygen status: Room Air ⭐ Vaccinations (FLU) CHF Classification: HFrEF Echo Results: 05/12/2023 TTE: LVEF 30-35% mild mitral regurgitation four-chamber enlargement The echo was technically difficult. NYHA Classification: III AHA Staging: C Etiology: Nonischemic Heart Failure Etiology Hx nonobstructive CAD Cardiac Rhythm History: VT/SVT TANKROOM TENDER: Yes ICD: Yes CARDIAC DEVICE Details: TANKROOM TENDER-D d/t RBBB Supplemental oxygen status: Room Air Acute Event Details: - April 2023, new CHF diagnosis, RBBB - September: TANKROOM TENDER-D placed. Extremity Swelling: Yes Abdominal Swelling/Bloating: Yes Dyspnea with Exertion: Yes Orthopnea: No OTHER: Yes Other Baseline Details: - Edema: LE edema to feet and legs - GARCIA: reports SOB w/ walking in a parking lot or climbing a flight of stairs. Uses a cane d/t back issues. CURRENT HEART FAILURE MEDICATIONS: - Compliant with current GDMT of: - BB: Metoprolol Succinate 100 mg daily - PAWEL/ARB/ARNI: Entresto 24/26 mg BID - Aldosterone antagonist: none - SGLT2 vijay: Jardiance 10 mg daily - Other relevant cardiac medications: - none - Compliant with Diuretic of: - furosemide 40 mg BID - potassium gluconate 550 mg 2 tablets BID - Compliant with anticoagulation/ASA/Statin: - aspirin 81 mg daily - atorvastatin calcium 80 mg daily - clopidogrel bisulfate 75 mg daily Adherent to regimen: Yes Labs Notes: - Most recent labs: - BMP 04/19/24: Sodium: 142, Potassium: 4.0, sCr: 1.14, GFR: 71 - A1c 04/19/24: 5.3% - BMP 10/28/23: Sodium: 141, Potassium: 3.5, Creatinine: 1.07, GFR: 52 - A1c 10/28/23: 5.7% Reviewed importance of daily weights: Yes Dx: I50.20 - Unspecified systolic (congestive) heart failure Notes for I50.20: Discussed member's CHF during visit. 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 - Both Conditions are co-managed with Furosemide - Signs and symptoms of BLE edema and SOB with exertion, edema is responsive to diuretic therapy - Continue current treatment and follow up with PCP/ cardiology as scheduled for ongoing monitoring Basic Metabolic Panel (w/ Magnesium) Lab Order: Yes Patient to follow up with DM CHF BROADCAST CHECKER in: 1 month SCREENING - Depression Previously recorded diagnosis of bipolar disorder, schizoaffective disorder, or schizophrenia?: Bipolar Disorder Dx: F31.9 - Bipolar disorder, unspecified Notes for F31.9: - Patient has bipolar disorder - Currently taking medication: quetiapine fumarate - Follow[facility] with psychiatrist at the [place], sees every 3 months - Advised to immediately seek medical attention if thoughts of suicide or homicide. PULMONARY - Chronic Lung Disease COPD: Yes Signs or symptoms of an acute exacerbation of COPD?: No Dx: J44.9 - Chronic obstructive pulmonary disease, unspecified Notes for J44.9: - Discussed COPD today - Current S/S include: GARCIA - Currently prescribed: albuterol sulfate inhaler and nebs, Trelegy - Managed by: PCPDISCUSSED: Counseling on benefits of abstaining from smokingACTION: Confirm that the patient is prescribed inhaled bronchodilators CARDIOVASCULAR - Arrhythmia Diagnosed with one of the following arrhythmias?: Supraventricular Tachycardia Does patient have a cardiac pacemaker?: Yes Select indication for pacemaker: Other Specify indication for the patient's pacemaker: TANKROOM TENDER-D for HFrEF Has the patient had a Left Atrial Appendage Closure device (such as a Watchman, AtriClip, Amulet, etc) for the treatment of Atrial Fibrillation?: No Dx: I47.10 - Supraventricular tachycardia, unspecified Notes for I47.10: - Currently without symptoms of dizziness/ fatigue/palpitations. Endorses GARCIA/SOB. - TANKROOM TENDER-D inplace, no concerns noted by patient - complaint on medications: metoprolol succinate - Followed by PCP/cardiologyACTION: Confirm that the patient is prescribed an agent for rate or rhythm control. ⭐ENDOCRINE - Diabetes (A1c + Eye + Kidney) Member reports and I have confirmed they do not have diabetes: Yes Add a brief note on why the member does not have diabetes (e.g., taking Ozempic): on SGLT2 for CHF 2024 APPOINTMENT CPT CODE Please indicate how this visit was conducted: Video Please select the video platform used during the visit: [employer] Video Room Please record the total amount of time you spent on this patient visit- Total time includes time spent on preparation, speaking with the patient, documentation, and post-visit coordination of care - This is limited to time spent ON THE DATE OF SERVICE (e.g. does not include time spent on days prior to or after the date of service) 40 or more minutes Did you review the patient's prescription and non-prescription drugs, vitamins, herbal remedies, and other supplements, AND is the accompanying medication list documented in the medical record?: No Has the patient been discharged within the last 30 days?: No CARE COORDINATION AND SCHEDULING External Care Coordination : Yes Balbina Lugo [facility] 2024-04-26 11:30:00 Members Preferred Language Malaysian Patient Currently Located in their home state of [place], YES ### HISTORY OF PRESENT ILLNESS Confirmed the following past medical history:Chronic Kidney DiseaseCoronary Artery DiseaseStrokeObstructive Sleep Apnea CHF COMMUNITY PROVIDER DETAILS Which primarily manages your CHF?: RAILROAD DETECTIVE C Programmer name: Dr. Roxie Oscar MD @ [facility] C Programmer office phone number: [phone] [place], [address] Last Specialist/PCP appointment: 2024-03-13 Next Specialist/PCP appointment: 2024-06-27 Additional Provider Name 1: EP Dr. Benjamin Akins MD @ [facility]- placed ICD which is now managed by Dr. Hernandez Next provider appointment notes: no more f/u visits w/ Dr. Akins at this time, ICD readings go to Dr. Hernandez Additional Provider Name 2: PCP: PCP Glynn Stone DO Additional Provider 2 office phone number: [facility] [address] [place] [address] Dr Olivera, OSCAR [id number] Additional Provider 2 last appointment: 2024-04-04 Additional Provider Name 3: [facility] PCP Additional Provider 3 last appointment: 2024-04-26 Next provider appointment notes: Ke[place] PAST MEDICAL HISTORY (completed during inital 30 days) CHF Classification: HFrEF TANKROOM TENDER: Yes ICD: Yes CARDIAC DEVICE Details: TANKROOM TENDER-D d/t RBBB Duration of Diagnosis at time of Enrollment: LESS than 1 YEAR Etiology: Nonischemic Cardiac Diagnostic Testing Results: 05/12/2023 echocardiogram: - ejection fraction around 30-35% - mild mitral regurgitation - four-chamber enlargement - The echo was technically difficult. Extremity Swelling: Yes Abdominal Swelling/Bloating: Yes Dyspnea with Exertion: Yes Orthopnea: No OTHER: Yes Other Baseline Details: - Edema: LE edema to feet and legs - GARCIA: reports SOB w/ walking in a parking lot or climbing a flight of stairs. Uses a cane d/t back issues. Additional CHF Diagnosis Details (optional): HFrEF (EF 30-35%) Stage: C Class: III Device: TANKROOM TENDER-D Last Ischemic Eval: June 2023 FINAL DIAGNOSES: Dilated cardiomyopathy, ejection fraction 20%, left ventricular end-diastolic pressure of 20, nonobstructive coronary artery disease. C Programmer: Dr. Oscar @ [facility] ASE/Root Cause: April 2023, new CHF diagnosis, RBBB Other pertinent cardiac history: HTN, HLD, Nonobstructive CAD, NAY w/o CPAP, COPD, CVA, CKD Acute Event Details: - April 2023, new CHF diagnosis, RBBB - September: TANKROOM TENDER-D placed. Chronic Kidney Disease: Yes COPD: Yes Coronary Artery Disease: Yes Hypertension: Yes Obstructive Sleep Apnea: Yes Stroke: Yes Optional, Additional Past Medical History: Stroke 35 years ago MEDICATION Notable Medication Details: - 02/22 pending review on 03/08. He states he takes Lasix BID, not home to review dose. - 03/08: med list updated and reviewed. On 03/21 GDMT - 03/22: no medication changes - 04/12: changed Metop Tartrate to Metop Succ by Balbina, tolerating change well. Now on 04/18 GDMT - 04/26: no medication changes Member's Understanding of Medications: Good Adherent to their CHF medications?: Yes GDMT- Beta Blockerat Enrollment: NO GDMT: ACEi/ARBi/ARB at Enrollment: NO GDMT: ARNI at Enrollment: YES GDMT: SGLT-2 at Enrollment: YES GDMT: MRA at Enrollment: NO VITALS Feet: 5 Inches: 10 WEIGHT (pounds): 179 <hr> BODY MEASUREMENTS:<em>Patient Height in centimeters</em>: 177.80<em>Patient Weight in kilograms</em>: 81.19<em>Patient Body Mass Index</em>: 25.68 Recent Weight:02/22: states checks wt daily, baseline wt 182-183lbs. States he has lost 45lbs in 4 months taking Mounjaro for wt loss. Sent BT scale today.03/08: 188lbs, states wt is up this week as he has been eating a lot of cheese. Baseline wt per BT is consistent w/ his reported baseline 182-185lbs Denies water retention today.03/22: 190lbs, this is up some from our previous visit, which was up from his baseline 182-183lbs. See assessment for more details.04/12: 787qfs0/12: 179lbs DRY WEIGHT: 183 lbs BLOOD PRESSURE Recent BP Readings02/22: checks his BP daily. 116/82, 85 today03/08: 122/83, 8303/22: 126/84, : 108/70, 83, 98/74, 79; 108/71, 863/12: 125/81, 108 (previous days 70-80's, 92 yesterday) Oxygen saturation: 96% Digital Scale: Yes Automatic BP Cuff: Yes Section Completed: Yes EDUCATION Orientation/review of Heart Failure Action Plan, Zones, and Contingency Plan: Yes Contingency plan: Yes CHF s/sx and symptom tracker: Yes [facility]ed [facility]: Yes Orientation provided to BodyTrace LTE scale: Yes Reviewed diet/nutrition best practices: Yes Education notes: Education Reviewed: -Daily wt education and BT Scale: 02/23/24 - Welcome packet/Cont plan: 03/08/24 - Monitoring S/Sx: 03/08/24 - BP monitoring: - Low sodium: 03/22/24, 04/26/24 - Medications: 03/29/24 (CHF BROADCAST CHECKER visit) - GDMT role: 03/29/24 (CHF BROADCAST CHECKER visit) - Living w/ CHF: - Steps to a Healthy Heart: 04/26/24: - Reviewed low sodium diet, states he has a better understanding. He reports since we last discussed it, he has looked it up online and cut back on a lot of his sodium intake. Section Completed: Yes CHF ASSESSMENT & PLAN No Change From Baseline Noted: Yes Signs or symptoms of an acute exacerbation of CHF?: No Reviewed Contingency Plan with Member: Yes Contingency Plan Details: The member has agreed with the following contingency plan for worsening symptoms of heart failure* - weight increase >3lbs overnight or >5lbs in a week - extremity swelling especially in the feet or ankles - increased shortness of breath with activities or laying flat IN THE EVENT OF WORSENING SYMPTOMS THE MEMBER WILLCall entertainment lawyer of PCP for guidanceContinue taking your medications as prescribed until you speak with your doctorIf your doctors are unreachable, call [phone] to speak with [facility] team, available 24/7Call 911 for difficulty breathing, severe dizziness, or chest pain that does not resolve with 5 minutes of restTakes furosemide 40 mg BID. Take additional 40 mg tablet for a total of 80 mg Qam and 40 mg Qpm if he gains more than 3 lbs in a day or 5 lbs in a week PCP notified of enrollment: Yes Education Material Received: Yes Scale Received: Yes [facility] Provider Visit Details: Established neville/ Balbina 03/29/24: Notes to RN: - Appt with PCP next Tuesday 04/04. He also follows with a [facility] P[facility] as well that he sees every 6 months. Some of his medications are prescribed through his [facility] provider and some are through outside providers - His weight today was 184.3 lbs. He was 187.8 lbs yesterday. He states he was previously very constipated and had multiple large BMs this morning. - He endorses LE edema, abdominal edema, and GARCIA. Denies orthopnea or chest pain. Hx COPD. His currently diuretic regimen is furosemide 40 mg BID. He does not currently have a contingency plan in place. We discussed a contingency plan of taking an additional 40 mg tablet in the morning for a total of furosemide 80 mg Qam and 40 mg Qpm if he gains more than 3 lbs in day or 5 lbs in a week. He is agreeable. I will send an updated rx to his pharmacy with more tablets so he does not run out. - He is currently on 2 of 4 pillars of GDMT, Entresto and Jardiance. He is currently on metoprolol tartrate. We discussed the indication for switching to metoprolol succinate. He is agreeable. I will send an rx for metoprolol succinate 100 mg daily to his pharmacy. - We will plan on starting MRA at our next visit. Can also consider uptitrating Entresto after that. Medication titration: - STOP metoprolol tartrate 50 mg BID - START metoprolol succinate 100 mg daily - CHANGE furosemide 40 mg BID. Take additional 40 mg tablet for a total of 80 mg Qam and 40 mg Qpm if he gains more than 3 lbs in a day or 5 lbs in a week. Will follow up with DM CHF BROADCAST CHECKER in 1 month: scheduled 05/03 Member Stated Goals: Learn more about his heart condition Establish self-care monitoring routine with membe. STATUS- COMPLETE Increase members knowledge of CHF symptoms/zones. STATUS- IN PROGRESS Increase members knowledge of lifestyle accommodations r/t CHF. STATUS- IN PROGRESS MEMBER GOALS- Learn more about his heart condition STATUS- IN PROGRESS PLAN: - States newly diagnosed w/ CHF in April last year. He was found to have RBBB and had TANKROOM TENDER-D placed last September. - He f/u w/ cardio Dr. Oscar w/ every 3 month f/u visits - States symptoms mostly well managed, but does report LE edema and some GARCIA w/ stairs or parking lots Visit Summary: - States he is feeling well. Wt stable 179lbs.BP 125/81,108. States he has been up and on the go, (previous days 70-80's, 92 yesterday). - He reports he has had some sharp pains on under his arm, up around his shoulder and ICD, radiating up in the side of his neck. States comes and goes, denies now. He states he is going to call Dr. Oscar's office today. Denies any other symptoms w/ the pain. RN will f/u later this week. - Reviewed low sodium diet understanding. - No PCP f/u at this time. - [place] w/ cardio 06/27 unless they see him sooner d/t reported pain. - CHF BROADCAST CHECKER f/u 05/03 - CHF RN f/u 05/17 for final edu review. - Planning for graduation end of May unless need for following continues w/ med optimization or other clinical needs. Member action items:- Low sodium diet/Fluid restriction: - Continue medications - Routine f/u w/ entertainment lawyer - Monitor wt/BP/sx, report any changes/progression of symptoms RN action items:- Routine RN visits for symptoms checks and support - Remote wt monitoring - Review program education as applicable to member. - Referrals: NONE F/u during next call:- Review: WT and BP log - F/u on provider appts: 05/03 CHF BROADCAST CHECKER visit w/ Balbina - Education: chapter 5 and 6 - Schedule: NONE - Other member needs: NONE - STARS: States he is not a diabetic, takes Tirzepetide for wt loss and Jardiance for HF. - MM: Metop Succinate started, medication cont plan ordered, Section Completed: Yes Jennifer Javed [facility] 2024-04-12 10:45:00 Members Preferred Language Malaysian Patient Currently Located in their home state of [place], YES ### HISTORY OF PRESENT ILLNESS Confirmed the following past medical history:Chronic Kidney DiseaseCoronary Artery DiseaseStrokeObstructive Sleep Apnea CHF COMMUNITY PROVIDER DETAILS Which primarily manages your CHF?: RAILROAD DETECTIVE C Programmer name: Dr. Roxie Oscar MD @ [facility] Programmer office phone number: [phone] [place], [address] Last Specialist/PCP appointment: 2024-03-13 Exact date unknown for upcoming appointment: Yes Additional Provider Name 1: EP Dr. Benjamin Akins MD @ [facility]- placed ICD which is now managed by Dr. Hernandez Additional Provider Name 2: PCP: PCP Glynn Stone DO Additional Provider 2 office phone number: [facility], [facility] ([facility] [address] [place] [address] [address] Additional Provider 2 last appointment: 2024-04-04 Next provider appointment notes: scheduled for 6 month f/u visit PAST MEDICAL HISTORY (completed during inital 30 days) CHF Classification: HFrEF TANKROOM TENDER: Yes ICD: Yes CARDIAC DEVICE Details: TANKROOM TENDER-D d/t RBBB Duration of Diagnosis at time of Enrollment: LESS than 1 YEAR Etiology: Nonischemic Cardiac Diagnostic Testing Results: 05/12/2023 echocardiogram: - ejection fraction around 30-35% - mild mitral regurgitation - four-chamber enlargement - The echo was technically difficult. Extremity Swelling: Yes Abdominal Swelling/Bloating: Yes Dyspnea with Exertion: Yes Orthopnea: No OTHER: Yes Other Baseline Details: - Edema: LE edema to feet and legs - GARCIA: reports SOB w/ walking in a parking lot or climbing a flight of stairs. Uses a cane d/t back issues. Additional CHF Diagnosis Details (optional): HFrEF (EF 30-35%) Stage: C Class: III Device: TANKROOM TENDER-D Last Ischemic Eval: June 2023 FINAL DIAGNOSES: Dilated cardiomyopathy, ejection fraction 20%, left ventricular end-diastolic pressure of 20, nonobstructive coronary artery disease. C Programmer: Dr. Oscar @ [facility] ASE/Root Cause: April 2023, new CHF diagnosis, RBBB Other pertinent cardiac history: HTN, HLD, Nonobstructive CAD, NAY w/o CPAP, COPD, CVA, CKD Acute Event Details: - April 2023, new CHF diagnosis, RBBB - September: TANKROOM TENDER-D placed. Chronic Kidney Disease: Yes COPD: Yes Coronary Artery Disease: Yes Hypertension: Yes Obstructive Sleep Apnea: Yes Stroke: Yes Optional, Additional Past Medical History: Stroke 35 years ago MEDICATION Notable Medication Details: - 02/22 pending review on 03/08. He states he takes Lasix BID, not home to review dose. - 03/08: med list updated and reviewed. On 03/21 GDMT - 03/22: no medication changes - 04/12: changed Metop Tartrate to Metop Succ by Balbina, tolerating change well. Now on 04/18 GDMT Member's Understanding of Medications: Good Adherent to their CHF medications?: Yes GDMT- Beta Blockerat Enrollment: NO GDMT: ACEi/ARBi/ARB at Enrollment: NO GDMT: ARNI at Enrollment: YES GDMT: SGLT-2 at Enrollment: YES GDMT: MRA at Enrollment: NO VITALS Feet: 5 Inches: 10 WEIGHT (pounds): 178 <hr> BODY MEASUREMENTS:<em>Patient Height in centimeters</em>: 177.80<em>Patient Weight in kilograms</em>: 80.74<em>Patient Body Mass Index</em>: 25.54 Recent Weight:02/22: states checks wt daily, baseline wt 182-183lbs. States he has lost 45lbs in 4 months taking Mounjaro for wt loss. Sent BT scale today.03/08: 188lbs, states wt is up this week as he has been eating a lot of cheese. Baseline wt per BT is consistent w/ his reported baseline 182-185lbs Denies water retention today.03/22: 190lbs, this is up some from our previous visit, which was up from his baseline 182-183lbs. See assessment for more details.04/12: 178lbs DRY WEIGHT: 183 lbs BLOOD PRESSURE Select BP CUFF Type: Upper Arm-Regular Recent BP Readings02/22: checks his BP daily. 116/82, 85 today03/08: 122/83, 832/: 126/84, 852/: 108/70, 83, 98/74, 79; 108/71, 86 Oxygen saturation: 96% Digital Scale: Yes Automatic BP Cuff: Yes Section Completed: Yes EDUCATION Orientation/review of Heart Failure Action Plan, Zones, and Contingency Plan: Yes Contingency plan: Yes CHF s/sx and symptom tracker: Yes Reviewed Care OnDemand Services: Yes Orientation provided to BodyTrace LTE scale: Yes Reviewed diet/nutrition best practices: Yes Education notes: Education Reviewed: -Daily wt education and BT Scale: 02/23/24 - Welcome packet/Cont plan: 03/08/24 - Monitoring S/Sx: 03/08/24 - BP monitoring: - Low sodium: 03/22/24 - Medications: 03/29/24 (CHF BROADCAST CHECKER visit) - GDMT role: 03/29/24 (CHF BROADCAST CHECKER visit) - Living w/ CHF: - Steps to a Healthy Heart: 04/12/24: - CHF education deferred today, leaving to go to hospital where family members are admitted. Section Completed: Yes CHF ASSESSMENT & PLAN No Change From Baseline Noted: Yes Signs or symptoms of an acute exacerbation of CHF?: No Reviewed Contingency Plan with Member: Yes Contingency Plan Details: The member has agreed with the following contingency plan for worsening symptoms of heart failure* - weight increase >3lbs overnight or >5lbs in a week - extremity swelling especially in the feet or ankles - increased shortness of breath with activities or laying flat IN THE EVENT OF WORSENING SYMPTOMS THE MEMBER WILLCall entertainment lawyer of PCP for guidanceContinue taking your medications as prescribed until you speak with your doctorIf your doctors are unreachable, call [phone] to speak with [facility] team, available 24/7Call 911 for difficulty breathing, severe dizziness, or chest pain that does not resolve with 5 minutes of restTakes furosemide 40 mg BID. Take additional 40 mg tablet for a total of 80 mg Qam and 40 mg Qpm if he gains more than 3 lbs in a day or 5 lbs in a week PCP notified of enrollment: Yes Education Material Received: Yes Scale Received: Yes [facility] Provider Visit Completed: Yes [facility] Visit Details: Established neville/ Balbina 03/29/24: Notes to RN: - Appt with PCP next Tuesday 04/04. [facility] that [facility] 6 [facility]. Some of his medications are prescribed through his [facility] provider and some are through outside providers - His weight today was 184.3 lbs. He was 187.8 lbs yesterday. He states he was previously very constipated and had multiple large BMs this morning. - He endorses LE edema, abdominal edema, and GARCIA. Denies orthopnea or chest pain. Hx COPD. His currently diuretic regimen is furosemide 40 mg BID. He does not currently have a contingency plan in place. We discussed a contingency plan of taking an additional 40 mg tablet in the morning for a total of furosemide 80 mg Qam and 40 mg Qpm if he gains more than 3 lbs in day or 5 lbs in a week. He is agreeable. I will send an updated rx to his pharmacy with more tablets so he does not run out. - He is currently on 2 of 4 pillars of GDMT, Entresto and Jardiance. He is currently on metoprolol tartrate. We discussed the indication for switching to metoprolol succinate. He is agreeable. I will send an rx for metoprolol succinate 100 mg daily to his pharmacy. - We will plan on starting MRA at our next visit. Can also consider uptitrating Entresto after that. Medication titration: - STOP metoprolol tartrate 50 mg BID - START metoprolol succinate 100 mg daily - CHANGE furosemide 40 mg BID. Take additional 40 mg tablet for a total of 80 mg Qam and 40 mg Qpm if he gains more than 3 lbs in a day or 5 lbs in a week. Will follow up with DM CHF BROADCAST CHECKER in 1 month: scheduled 05/03 Member Stated Goals: Learn more about his heart condition Establish self-care monitoring routine with membe. STATUS- COMPLETE Increase members knowledge of CHF symptoms/zones. STATUS- IN PROGRESS Increase members knowledge of lifestyle accommodations r/t CHF. STATUS- IN PROGRESS MEMBER GOALS- Learn more about his heart condition STATUS- IN PROGRESS PLAN: - States newly diagnosed w/ CHF in April last year. He was found to have RBBB and had TANKROOM TENDER-D placed last September. - He f/u w/ cardio Dr. Oscar w/ every 3 month f/u visits - States symptoms mostly well managed, but does report LE edema and some GARCIA w/ stairs or parking lots Visit Summary: - States he is feeling well. Had wt case yesterday but stated from not having a BM. Wt down 3lbs today, 178lbs. - BP stable 108/70, 83. Tolerating change from Metoprolol Tartrate to Metop Succinate 100mg daily. - Had PCP visit, no medication changes, f/u in 6 months. - Education deferred today, states he has 2 family members inpatient and he is on the way to the hospital today. - Has CHF BROADCAST CHECKER visit 05/03, working on GDMT optimization. CHF RN will f/u in 2 weeks for Sx check and resume education review (2 more edu visits). Member action items:- Low sodium diet/Fluid restriction: - Continue medications - Routine f/u w/ entertainment lawyer - Monitor wt/BP/sx, report any changes/progression of symptoms RN action items:- Routine RN visits for symptoms checks and support - Remote wt monitoring - Review program education as applicable to member. - Referrals: NONE F/u during next call:- Review: WT and BP log - F/u on provider appts: 04/04 PCP f/u visit, 03/29 CHF BROADCAST CHECKER visit w/ Balbina - Education: Low sodium diet review, chapter 5 and 6 - Schedule: NONE - Other member needs: NONE - STARS: States he is not a diabetic, takes Tirzepetide for wt loss and Jardiance for HF. - MM: Metop Succinate started, medication cont plan ordered, Section Completed: Yes Jennifer Javed [facility] 2024-03-29 15:00:00 ASSESSMENT SUMMARY DEVAUGHN ARRIAGA is a 63 year old man seen today by [facility] for a [facility]. Patient is a 63 y/o male who is being followed up with for management of uncontrolled Heart Failure by [facility] Members Preferred Language Malaysian Patient Currently Located in their home state of [place], YES HEART FAILURE CLINIC HISTORY OF PRESENT ILLNESS Visit Summary Vital Signs:- BP at time of visit: 121/81 - HR at time of visit: 78 bpm - Weight at time of visit: 184.3 lbs - Dry Weight: 183-184 lbs Plan:- Followed by entertainment lawyer Dr. Roxie Oscar MD and EP Dr. Benjamin Akins MD - 06/27/[address] Oscar - Currently enrolled in DM CHF program and will continue to follow. - LIS 100% - Visit Summary: - Diagnosed with HFrEF EF 30-35% in April 2023. He had a TANKROOM TENDER-D placed about 3 months ago. - Appt with PCP next Tuesday 04/04. He also follows with a [facility] PCP as well that he sees every 6 months. Some of his medications are prescribed through his [facility] provider and some are through outside providers - Current smoker but he has been cutting back with help of verenicline. States he is keeping busy around his house to help and he is tolerating the extra activity w/o any difficulty. - His weight today was 184.3 lbs. He was 187.8 lbs yesterday. He states he was previously very constipated and had multiple large BMs this morning. His dry weight is - He endorses LE edema, abdominal edema, and GARCIA. Denies orthopnea or chest pain. Hx COPD. His currently diuretic regimen is furosemide 40 mg BID. He does not currently have a contingency plan in place. We discussed a contingency plan of taking an additional 40 mg tablet in the morning for a total of furosemide 80 mg Qam and 40 mg Qpm if he gains more than 3 lbs in day or 5 lbs in a week. He is agreeable. I will send an updated rx to his pharmacy with more tablets so he does not run out. - He is currently on 2 of 4 pillars of GDMT, Entresto and Jardiance. He is currently on metoprolol tartrate. We discussed the indication for switching to metoprolol succinate. He is agreeable. I will send an rx for metoprolol succinate 100 mg daily to his pharmacy. - We will plan on starting MRA at our next visit. Can also consider uptitrating Entresto after that. - Medication titration: - STOP metoprolol tartrate 50 mg BID - START metoprolol succinate 100 mg daily - CHANGE furosemide 40 mg BID. Take additional 40 mg tablet for a total of 80 mg Qam and 40 mg Qpm if he gains more than 3 lbs in a day or 5 lbs in a week. - Orders placed: - none - Will follow up with DM CHF BROADCAST CHECKER in 1 month Current Symptom Review No Change From Baseline Noted: Yes Chronic Kidney Disease: Yes COPD: Yes Coronary Artery Disease: Yes Obstructive Sleep Apnea: Yes Stroke: Yes Optional, Additional Past Medical History: Stroke 35 years ago DIAGNOSIS [id number] - Unspecified systolic (congestive) heart failure GENERAL ASSESSMENT* Supplemental oxygen status: Room Air ⭐ Vaccinations (FLU) CHF Classification: HFrEF Echo Results: 05/12/2023 TTE: LVEF 30-35% mild mitral regurgitation four-chamber enlargement The echo was technically difficult. Etiology: Nonischemic Heart Failure Etiology Hx nonobstructive CAD Cardiac Rhythm History: None TANKROOM TENDER: Yes ICD: Yes Supplemental oxygen status: Room Air Acute Event Details: - April 2023, new CHF diagnosis, RBBB - September: TANKROOM TENDER-D placed. Extremity Swelling: Yes Abdominal Swelling/Bloating: Yes Dyspnea with Exertion: Yes Orthopnea: No OTHER: Yes Other Baseline Details: - Edema: LE edema to feet and legs - GARCIA: reports SOB w/ walking in a parking lot or climbing a flight of stairs. Uses a cane d/t back issues. CURRENT HEART FAILURE MEDICATIONS: - Compliant with current GDMT of: - BB: none - currently on metoprolol tartrate 50 mg BID - PAWEL/ARB/ARNI: Entresto 24/26 mg BID - Aldosterone antagonist: none - SGLT2 vijay: Jardiance 10 mg daily - Other relevant cardiac medications: - none - Compliant with Diuretic of: - furosemide 40 mg BID - potassium gluconate 550 mg 2 tablets Qam and 1 tablet Qpm - Compliant with anticoagulation/ASA/Statin: - aspirin 81 mg daily - atorvastatin calcium 80 mg daily - clopidogrel bisulfate 75 mg daily Labs Notes: - Most recent labs: - BMP 10/28/23: Sodium: 141, Potassium: 3.5, Creatinine: 1.07, GFR: 52 - A1c 10/28/23: 5.7% Reviewed importance of daily weights: Yes Dx: I50.20 - Unspecified systolic (congestive) heart failure Notes for I50.20: Discussed member's CHF during visit. * 05/12/2023 TTE: LVEF 30-35%Compliant with current GDMT of: ron De La RosadianceCounseled on the importance of daily weights on BodyTrace scale and notification of provider for a >2lb weight gain.Followed by cardiologistCurrently enrolled in DM CHF program and will continue to follow Patient to follow up with DM CHF BROADCAST CHECKER in: 1 2024 APPOINTMENT CPT CODE Please indicate how this visit was conducted: Audio-Only Please select the reason why an audio-only visit is being performed: Unable to perform Video Please record the total amount of time you spent on this patient visit- Total time includes time spent on preparation, speaking with the patient, documentation, and post-visit coordination of care - This is limited to time spent ON THE DATE OF SERVICE (e.g. does not include time spent on days prior to or after the date of service) 40 or more minutes Did you review the patient's prescription and non-prescription drugs, vitamins, herbal remedies, and other supplements, AND is the accompanying medication list documented in the medical record?: Yes Has the patient been discharged within the last 30 days?: No Balbina Lugo [facility] 2024-03-22 12:15:00 Members Preferred Language Malaysian Patient Currently Located in their home state of [place], YES ### HISTORY OF PRESENT ILLNESS Confirmed the following past medical history:Chronic Kidney DiseaseCoronary Artery DiseaseStrokeObstructive Sleep Apnea CHF COMMUNITY PROVIDER DETAILS Which primarily manages your CHF?: RAILROAD DETECTIVE C Programmer name: Dr. Roxie Oscar MD @ [facility] C Programmer office phone number: [address] [place], [address] Last Specialist/PCP appointment: 2024-03-13 Exact date unknown for upcoming appointment: Yes Additional Provider Name 1: EP Dr. Benjamin Akins MD @ [facility]- placed ICD which is now managed by Dr. Hernandez Next provider appointment notes: no more f/u visits w/ Dr. Akins at this time, ICD readings go to Dr. Hernandez Additional Provider Name 2: PCP Additional Provider 2 office phone number: Additional Provider 2 next appointment: 2024-04-04 PAST MEDICAL HISTORY (completed during inital 30 days) CHF Classification: HFrEF ICD: Yes CARDIAC DEVICE Details: TANKROOM TENDER-D d/t RBBB Duration of Diagnosis at time of Enrollment: LESS than 1 YEAR Etiology: Nonischemic Cardiac Diagnostic Testing Results: 05/12/2023 echocardiogram: - ejection fraction around 30-35% - mild mitral regurgitation - four-chamber enlargement - The echo was technically difficult. Extremity Swelling: Yes Dyspnea with Exertion: Yes OTHER: Yes Other Baseline Details: - Edema: LE edema to feet and legs - GARCIA: reports SOB w/ walking in a parking lot or climbing a flight of stairs. Uses a cane d/t back issues. Additional CHF Diagnosis Details (optional): HFrEF (EF 30-35%) Stage: C Class: III Device: TANKROOM TENDER-D Last Ischemic Eval: June 2023 FINAL DIAGNOSES: Dilated cardiomyopathy, ejection fraction 20%, left ventricular end-diastolic pressure of 20, nonobstructive coronary artery disease. C Programmer: Dr. Oscar @ [facility] ASE/Root Cause: April 2023, new CHF diagnosis, RBBB Other pertinent cardiac history: HTN, HLD, Nonobstructive CAD, NAY w/o CPAP, COPD, CVA, CKD Acute Event Details: - April 2023, new CHF diagnosis, RBBB - September: TANKROOM TENDER-D placed. Chronic Kidney Disease: Yes COPD: Yes Coronary Artery Disease: Yes Hypertension: Yes Obstructive Sleep Apnea: Yes Stroke: Yes MEDICATION Notable Medication Details: - 02/22 pending review on 03/08. He states he takes Lasix BID, not home to review dose. - 03/08: med list updated and reviewed. On 03/21 GDMT - 03/22: no medication changes Member's Understanding of Medications: Good Adherent to their CHF medications?: Yes GDMT- Beta Blockerat Enrollment: NO GDMT: ACEi/ARBi/ARB at Enrollment: NO GDMT: ARNI at Enrollment: YES GDMT: SGLT-2 at Enrollment: YES GDMT: MRA at Enrollment: NO VITALS Feet: 5 Inches: 10 WEIGHT (pounds): 190 <hr> BODY MEASUREMENTS:<em>Patient Height in centimeters</em>: 177.80<em>Patient Weight in kilograms</em>: 86.18<em>Patient Body Mass Index</em>: 27.26 Recent Weight:02/22: states checks wt daily, baseline wt 182-183lbs. States he has lost 45lbs in 4 months taking Mounjaro for wt loss. Sent BT scale today.03/08: 188lbs, states wt is up this week as he has been eating a lot of cheese. Baseline wt per BT is consistent w/ his reported baseline 182-185lbs Denies water retention today.03/22: 190lbs, this is up some from our previous visit, which was up from his baseline 182-183lbs. See assessment for more details. DRY WEIGHT: 183 lbs BLOOD PRESSURE Select BP CUFF Type: Upper Arm-Regular Recent BP Readings02/22: checks his BP daily. 116/82, 85 today03/08: 122/83, 832/5: 126/84, 85 Oxygen saturation: 96% Digital Scale: Yes Automatic BP Cuff: Yes Section Completed: Yes EDUCATION Orientation/review of Heart Failure Action Plan, Zones, and Contingency Plan: Yes Contingency plan: Yes CHF s/sx and symptom tracker: Yes Reviewed Care OnDemand Services: Yes Orientation provided to BodyTrace LTE scale: Yes Reviewed diet/nutrition best practices: Yes Education notes: Education Reviewed: -Daily wt education and BT Scale: 02/23/24 - Welcome packet/Cont plan: 03/08/24 - Monitoring S/Sx: 03/08/24 - BP monitoring: - Low sodium: 03/22/24 - Medications: - GDMT role: - Living w/ CHF: - Steps to a Healthy Heart: 03/22/24: - Reviewed basics of low sodium diet today (2gm, avoid salt, reaf food labels). Member not home, so RN will f/u w/ low sodium review during next education call. Section Completed: Yes CHF ASSESSMENT & PLAN No Change From Baseline Noted: Yes PCP notified of enrollment: Yes Scale Received: Yes Member Stated Goals: Learn more about his heart condition Establish self-care monitoring routine with membe. STATUS- COMPLETE Increase members knowledge of CHF symptoms/zones. STATUS- IN PROGRESS Increase members knowledge of lifestyle accommodations r/t CHF. STATUS- IN PROGRESS MEMBER GOALS- Learn more about his heart condition STATUS- IN PROGRESS PLAN: - States newly diagnosed w/ CHF in April last year. He was found to have RBBB and had TANKROOM TENDER-D placed last September. - He f/u w/ cardio Dr. Oscar w/ every 3 month f/u visits - States symptoms mostly well managed, but does report LE edema and some GARCIA w/ stairs or parking lots Visit Summary: - States he is feeling well. Cutting back on his smoking. States he is keeping busy around his house to help and he is tolerating the extra activity w/o any difficulty. - His wt is up from baseline to 190lbs today. It was up last time to 188lbs from baseline 182-183lbs and today is 190lbs. Last time he reported it was from feeling constipated. He states he feels fine and denies edema. W/ more discussion today, he states he may have some swelling his legs w/ sock lines at the end of the day. He just saw his entertainment lawyer on 03/13 and no changes were made to his meds but he states he may need an adjustment to his diuretics. He agrees to a CHF BROADCAST CHECKER visit w/ Balbina next week and understands to monitor his wt and report any increase in wt, edema, or changes to his breathing to COD. - Reviewed low sodium diet, but member is not home so RN will review in more detail during next education visit. - CHF BROADCAST CHECKER 03/29 and CHF RN f/u 04/05 planned at this time. Member action items:- Low sodium diet/Fluid restriction: - Continue medications - Routine f/u w/ entertainment lawyer - Monitor wt/BP/sx, report any changes/progression of symptoms RN action items:- Routine RN visits for symptoms checks and support - Remote wt monitoring - Review program education as applicable to member. - Referrals: NONE F/u during next call:- Review: WT and BP log - F/u on provider appts: 04/04 PCP f/u visit, 03/29 CHF BROADCAST CHECKER visit jalen Mortensen - Education: Low sodium diet reivew - Schedule: NONE - Other member needs: NONE - STARS: States he is not a diabetic, takes Tirzepetide for wt loss and Jardiance for HF. Section Completed: Yes Jennifer Javed [facility] 2024-03-08 11:30:00 Members Preferred Language Malaysian Patient Currently Located in their home state of [place], YES ### HISTORY OF PRESENT ILLNESS Confirmed the following past medical history:Chronic Kidney DiseaseCoronary Artery DiseaseStrokeObstructive Sleep Apnea CHF COMMUNITY PROVIDER DETAILS Which primarily manages your CHF?: RAILROAD DETECTIVE C Programmer name: Dr. Roxie Oscar MD @ [facility] C Programmer office phone number: [address] [place], [address] Next Specialist/PCP appointment: 2024-03-13 Exact date unknown for upcoming appointment: Yes Additional Provider Name 1: EP Dr. Benjamin Akins MD @ [facility]- placed ICD which is now managed by Dr. Hernandez Additional Provider Name 2: PCP Additional Provider 2 next appointment: 2024-04-04 PAST MEDICAL HISTORY (completed during inital 30 days) CHF Classification: HFrEF ICD: Yes CARDIAC DEVICE Details: TANKROOM TENDER-D d/t RBBB Duration of Diagnosis at time of Enrollment: LESS than 1 YEAR Etiology: Nonischemic Cardiac Diagnostic Testing Results: 05/12/2023 echocardiogram: - ejection fraction around 30-35% - mild mitral regurgitation - four-chamber enlargement - The echo was technically difficult. Extremity Swelling: Yes Dyspnea with Exertion: Yes OTHER: Yes Other Baseline Details: - Edema: LE edema to feet and legs - GARCIA: reports SOB w/ walking in a parking lot or climbing a flight of stairs. Uses a cane d/t back issues. Additional CHF Diagnosis Details (optional): HFrEF (EF 30-35%) Stage: C Class: III Device: TANKROOM TENDER-D Last Ischemic Eval: June 2023 FINAL DIAGNOSES: Dilated cardiomyopathy, ejection fraction 20%, left ventricular end-diastolic pressure of 20, nonobstructive coronary artery disease. C Programmer: Dr. Osacr @ [facility] ASE/Root Cause: April 2023, new CHF diagnosis, RBBB Other pertinent cardiac history: HTN, HLD, Nonobstructive CAD, NAY w/o CPAP, COPD, CVA, CKD Acute Event Details: - April 2023, new CHF diagnosis, RBBB - September: TANKROOM TENDER-D placed. Chronic Kidney Disease: Yes COPD: Yes Coronary Artery Disease: Yes Hypertension: Yes Obstructive Sleep Apnea: Yes Stroke: Yes MEDICATION Notable Medication Details: - 02/22 pending review on 03/08. He states he takes Lasix BID, not home to review dose. - 03/08: med list updated and reviewed. On 03/21 GDMT Member's Understanding of Medications: Good Adherent to their CHF medications?: Yes GDMT- Beta Blockerat Enrollment: NO GDMT: ACEi/ARBi/ARB at Enrollment: NO GDMT: ARNI at Enrollment: YES GDMT: SGLT-2 at Enrollment: YES GDMT: MRA at Enrollment: NO VITALS Feet: 5 Inches: 10 WEIGHT (pounds): 188 <hr> BODY MEASUREMENTS:<em>Patient Height in centimeters</em>: 177.80<em>Patient Weight in kilograms</em>: 85.28<em>Patient Body Mass Index</em>: 26.97 Recent Weight:02/22: states checks wt daily, baseline wt 182-183lbs. States he has lost 45lbs in 4 months taking Mounjaro for wt loss. Sent BT scale today.03/08: 188lbs, states wt is up this week as he has been eating a lot of cheese. Baseline wt per BT is consistent w/ his reported baseline 182-185lbs Denies water retention today. DRY WEIGHT: 183 lbs BLOOD PRESSURE Select BP CUFF Type: Upper Arm-Regular Recent BP Readings02/22: checks his BP daily. 116/82, 85 today03/08: 122/83, 83 Oxygen saturation: 96% Digital Scale: Yes Automatic BP Cuff: Yes Section Completed: Yes EDUCATION Orientation/review of Heart Failure Action Plan, Zones, and Contingency Plan: Yes Contingency plan: Yes CHF s/sx and symptom tracker: Yes Reviewed Care OnDemand Services: Yes Orientation provided to BodyTrace LTE scale: Yes Education notes: Education Reviewed: -Daily wt education and BT Scale: 02/23/24 - Welcome packet/Cont plan: 03/08/24 - Monitoring S/Sx: 03/08/24 - BP monitoring: - Low sodium: - Medications: - GDMT role: - Living w/ CHF: - Steps to a Healthy Heart: 03/08/24: - Welcome packet reviewed. Discussed heart failure pathology, heart failure s/sx including review of red flag symptoms to report to care team (including COD escalations and contact info provided), and reviewed goals of program w/ member. Educated member on the personal role they hold in their heart failure management: taking medications as prescribed, monitoring wt and BP daily, watching dietary sodium and fluid intake closely, and reporting symptom changes to her provider. Reviewed baseline s/sx to help member to identify "normals" and to help recognizes changes or worsening of symptoms. Verbalized understanding. Section Completed: Yes CHF ASSESSMENT & PLAN No Change From Baseline Noted: Yes Signs or symptoms of an acute exacerbation of CHF?: No Reviewed Contingency Plan with Member: Yes PCP notified of enrollment: Yes Scale Received: Yes Member Stated Goals: Learn more about his heart condition Establish self-care monitoring routine with membe. STATUS- COMPLETE Increase members knowledge of CHF symptoms/zones. STATUS- IN PROGRESS Increase members knowledge of lifestyle accommodations r/t CHF. STATUS- IN PROGRESS MEMBER GOALS- Learn more about his heart condition STATUS- IN PROGRESS PLAN: - States newly diagnosed w/ CHF in April last year. He was found to have RBBB and had TANKROOM TENDER-D placed last September. - He f/u w/ cardio Dr. Oscar w/ every 3 month f/u visits - States symptoms mostly well managed, but does report LE edema and some GARCIA w/ stairs or parking lots Visit Summary: - States he is feeling well. His wt is up from baseline to 188lbs today. States he has been eating a lot cheese. Reports he has some costipation. Explained concern w/ rapid wt increase w/ known increased sodium intake. He v/u and States he does not feel like he is retaining water. Denies LE edema and does not feel full or bloated in his belly. He understands to closely monitor his wt and sx and report any concerns. - He has f/u his entertainment lawyer next week on 03/13 and PCP 04/04 - Reviewed and updated med list, on 03/21 GDMT. - Reviewed welcome packet/cont plan education today. - CHF RN f/u visit scheduled in 2 weeks to review his cardio visit and low sodium diet. Will offer GDMT consult next visit. Member action items:- Low sodium diet/Fluid restriction: - Continue medications - Routine f/u w/ entertainment lawyer - Monitor wt/BP/sx, report any changes/progression of symptoms RN action items:- Routine RN visits for symptoms checks and support - Remote wt monitoring - Review program education as applicable to member. - Referrals: NONE F/u during next call:- Review: WT and BP log - F/u on provider appts: 03/13 cardio visit, 04/04 PCP f/u visit - Education: Low sodium diet - Schedule: GDMT consult - Other member needs: NONE - STARS: States he is not a diabetic, takes Tirzepetide for wt loss and Jardiance for HF. Section Completed: Yes Jennifer Javed [facility] 2024-02-23 13:00:00 Members Preferred Language Malaysian Patient Currently Located in their home state of [place], YES ### HISTORY OF PRESENT ILLNESS Confirmed the following past medical history:Chronic Kidney DiseaseCoronary Artery DiseaseStrokeObstructive Sleep Apnea CHF COMMUNITY PROVIDER DETAILS Which primarily manages your CHF?: RAILROAD DETECTIVE C Programmer name: Dr. Roxie Oscar MD @ [facility] C Programmer office phone number: [address] [place], [address] Exact date unknown for upcoming appointment: Yes Additional Provider Name 1: EP Dr. Benjamin Akins MD @ [facility]- placed ICD which is now managed by Dr. Hernandez Next provider appointment notes: no more f/u visits w/ Dr. Akins at this time, ICD readings go to Dr. Hernandez Additional Provider Name 2: PCP Glynn [facility] DO @ [facility]) [address] [place] [address] [place] [address] Additional Provider 2 office phone number: PAST MEDICAL HISTORY (completed during inital 30 days) CHF Classification: HFrEF ICD: Yes CARDIAC DEVICE Details: TANKROOM TENDER-D d/t RBBB Duration of Diagnosis at time of Enrollment: LESS than 1 YEAR Etiology: Nonischemic Cardiac Diagnostic Testing Results: 05/12/2023 echocardiogram: - ejection fraction around 30-35% - mild mitral regurgitation - four-chamber enlargement - The echo was technically difficult. Extremity Swelling: Yes Dyspnea with Exertion: Yes OTHER: Yes Other Baseline Details: - Edema: LE edema to feet and legs - GARCIA: reports SOB w/ walking in a parking lot or climbing a flight of stairs. Uses a cane d/t back issues. Additional CHF Diagnosis Details (optional): HFrEF (EF- ) Stage: C Class: III Device: TANKROOM TENDER-D Last Ischemic Eval: June 2023 FINAL DIAGNOSES: Dilated cardiomyopathy, ejection fraction 20%, left ventricular end-diastolic pressure of 20, nonobstructive coronary artery disease. C Programmer: Dr. Oscar @ [facility] ASE/Root Cause: April 2023, new CHF diagnosis, RBBB Other pertinent cardiac history: HTN, HLD, Nonobstructive CAD, NAY w/o CPAP, COPD, CVA, CKD Acute Event Details: - April 2023, new CHF diagnosis, RBBB - September: TANKROOM TENDER-D placed. Chronic Kidney Disease: Yes COPD: Yes Coronary Artery Disease: Yes Hypertension: Yes Obstructive Sleep Apnea: Yes Stroke: Yes MEDICATION Notable Medication Details: - 02/22 pending review on 03/08. He states he takes Lasix BID, not home to review dose. VITALS WEIGHT (pounds): 182 <hr> BODY MEASUREMENTS:<em>Patient Height in centimeters</em>:<em>Patient Weight in kilograms</em>: 82.56<em>Patient Body Mass Index</em>: Recent Weight:02/22: states checks wt daily, baseline wt 182-183lbs. States he has lost 45lbs in 4 months taking Mounjaro for wt loss. Sent BT scale today. DRY WEIGHT: 183 lbs BLOOD PRESSURE Select BP CUFF Type: Upper Arm-Regular Recent BP Readings02/22: checks his BP daily. 116/82, 85 today Oxygen saturation: 96% Digital Scale: No Automatic BP Cuff: Yes Does the patient need help ordering/obtaining an in-home scale?: Yes Are you interested in receiving an in-home scale to help monitor your daily weights? : Yes Does patient weigh more than 397bs?: No Are you able to stand safely (unassisted) on scale?: Yes Body trace scale order submitted: Yes Section Completed: Yes EDUCATION Reviewed [facility] Services: Yes Orientation provided to BodyTrace LTE scale: Yes Education notes: Education Reviewed: -Daily wt education and BT Scale: 02/23/24 - Welcome packet/Cont plan: - Monitoring S/Sx: - BP monitoring: - Low sodium: - Medications: - GDMT role: - Living w/ CHF: - Steps to a Healthy Heart: 02/23/24: BODY TRACE: Use batteries provided. Device should be placed on a flat and hard surface. Daily weight is best obtained upon waking, after voiding, before eating, in lightweight clothing. - CARE ON DEMAND SERVICES: Educated member on the free 07/09 service of [facility] [place], operated by [facility] at [phone] ([phone]) for urgent virtual care. Encouraged CoD use whenever PCP or entertainment lawyer is unresponsive or unavailable. Sent [facility] contact information sent via Feniks Section Completed: Yes CHF ASSESSMENT & PLAN No Change From Baseline Noted: Yes Signs or symptoms of an acute exacerbation of CHF?: No Enrollment Status for CHF Specialty Clinic: Eligible-ENROLLED CHF SPECIALTY CLINIC ENROLLMENT DETAILS: MEMBER IS ELIGIBLE AND AGREEABLE TO ENROLLMENT IN THE VOLUNTARY HEART FAILURE SPECIALTY CLINIC. Clinic visit kyle, care team members, and goals reviewed with the member today. Welcome packet and BodyTrace scale will be sent to the member's home this week. Member informed that scale is included in their benefits at no additional cost. Use of the scale is voluntary and will be used for remote weight monitoring during program enrollment only. NEXT RN FOLLOW SCHEDULED FOR: date/time 03/08/24 Member Stated Goals: Learn more about his heart condition Establish self-care monitoring routine with membe. STATUS- COMPLETE MEMBER GOALS- Learn more about his heart condition STATUS- IN PROGRESS PLAN: Visit Summary: - Member reviewed HF history. States newly diagnosed w/ CHF in April last year. He was found to have RBBB and had TANKROOM TENDER-D placed last September. He f/u w/ cardio Dr. Oscar. States symptoms mostly well managed, but does report LE edema and some GARCIA w/ stairs or parking lots. He is consistent w/ daily wt and BP. Has f/u w/ cardio every 3 months. He feels having support of CHF team for routine monitoring and education would be helpful for him. - Agrees to CHF program. Oriented to program roles and kyle, BT scale, and IDT support. Member v/u. - RN will f/u w/ member on 03/08/24 - Discussed COD and RN contact information and COD contact info sent via Feniks. Member action items:- Low sodium diet/Fluid restriction: - Continue medications - Routine f/u w/ entertainment lawyer - Monitor wt/BP/sx, report any changes/progression of symptoms RN action items:- Routine RN visits for symptoms checks and support - Remote wt monitoring - Review program education as applicable to member. - Referrals: NONE F/u during next call:- Med review - Document Contingency plan - Review: WT and BP log - F/u on provider appts: Mar cardiology visit, next routine PCP visit? - Education: Welcome kit/cont plan - Schedule: GDMT consult after meds reviewed - Other member needs: NONE - STARS: States he is not a diabetic, takes Tirzepetide for wt loss and Jardiance for HF. Section Completed: Yes CARE COORDINATION, REFERRALS, AND SCHEDULING Mail: Yes Jennifer Javed [facility] 2023-11-24 17:30:00 ASSESSMENT SUMMARY DEVAUGNH ARRIAGA is a 63 year old man seen today by [facility] for a Devoted Comprehensive Visit. Visit PurposeThese visits are scheduled to augment PCPs to close care and documentation gaps, reconcile medications, help patients make full use of their Devoted Health benefits and educate patients about their conditions. This visit DOES NOT replace the your Annual Medicare Visit with the patient. The member was encouraged to schedule an AWV with their PCP to review our visit summary & recommendations. See below for teaching and instruction given regarding specific diagnoses. Member verbalized understanding to all. Members Preferred Language Malaysian Patient Currently Located in their home state of [place], YES DIAGNOSIS UAPUCKML61.20 - Unspecified systolic (congestive) heart vfatzsoD45.1 - Secondary njfrjxruczyeocxyybA72.3 - PsuicytjhlJ44.28 - Body mass index [BMI] 28.0-28.9, adult PATIENT INTAKE Has the patient had an Annual Wellness Visit this calendar year?: AWV already completed MEDICATION RECONCILIATION Did you review the patient's prescription and non-prescription drugs, vitamins, herbal remedies, and other supplements, AND is the accompanying medication list documented in the medical record?: Yes GENERAL ASSESSMENT Feet: 5 Inches: 10 Pounds: 201 Patient BMI: 28.84 Dx: E66.3 - Overweight Notes for E66.3: - patient has a BMI of :28.84 - your weight is considered:overweight - managed by PCP - educated lifestyle modifications such as exercise & dietDISCUSSED: Dietary counseling was provided Dx: Z68.28 - Body mass index [BMI] 28.0-28.9, adult Notes for Z68.28: - patient has a BMI of :28.84 - your weight is considered:overweight - managed by PCP - educated lifestyle modifications such as exercise & dietDISCUSSED: Dietary counseling was provided Supplemental oxygen status: Room Air Supplemental Oxygen Needs: Does not need supplemental oxygen In general, would you say your quality of life is: Good SUBSTANCE USE - Alcohol Use Has the patient ever been a heavy drinker?: No [Impaired Control] Have you EVER felt like your alcohol use was a problem, or felt like you were an alcoholic?: No [Social Disruption] To your knowledge, have the people around you EVER felt like your alcohol use was a problem?: No [Dependence] Have you EVER gone to AA or sought TREATMENT related to alcohol use? [eg - rehab, been seen in the ED or hospital for an alcohol issue, been on remission maintenance meds, counseling, etc]: No The alcohol screen was negative. Would you like to proceed with the full assessment anyway?: No SUBSTANCE USE - Controlled Prescribed Substances [Chronic Use] Has the patient ever been prescribed a controlled substance used near DAILY for a period of 30 DAYS OR LONGER?: No SUBSTANCE USE - Non-Prescribed Controlled Substances The patient has not disclosed taking any illicit substances: Yes CARDIOVASCULAR - Congestive Heart Failure Previously diagnosed with heart failure?: Yes Has the patient experienced any Heart Failure acute events in the last 12 months? (CHF Acute Event ED, observation, or inpatient stay): No Echocardography shows EF < 40%: Yes Lower extremity edema on physical exam today?: No Taking spironolactone, eplerenone, or a diuretic? (exclude hydrochlorothiazide): Yes [NYHA Class III/IV HF] Does the patient develop SOB, fatigue, or palpitations when walking from one end of their house to the other?: No Signs or symptoms of an ACUTE EXACERBATION of chronic CHF?: No Dx: I50.20 - Unspecified systolic (congestive) heart failure Notes for I50.20: - patient with Unspecified systolic congestiveheart failure - evidenced by : echocardiogram 05/12/2023 showing "ejection fraction around 30-35%" - managed with medication: ENTRESTO, FUROSEMIDE, METOPROLOL - Current symptoms include: lower extremity edema at times, SOB on exertion - Alert provider of weight gain > 2 lbs in 1 day or > 5 lbs in 1 week. 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 A diuretic is co-managing the volume overload related to both the hyperaldosteronism and the heart failure. Heart failure causes hyperaldosteronism, and the volume overload caused by hyperaldosteronism contributes to the worsening of heart failure symptoms. Continue diuretic for co-management of both heart failure and hyperaldosteronism.: Yes Additional Notes: Chronic diastolic heart failure was noted by Glynn Stone DO on 07/30/2021. ⭐ENDOCRINE - Diabetes (A1c + Eye + Kidney) Patient most recently completed eye exam assessing for retinopathy?: Unknown or N/A Patient response to support scheduling retinopathy exam: YES Select the patient's preferred (and available) testing method: Create a Stars case to the Clinical Associate team in the 'Care Coordination, Referrals, and Scheduling' tab APPOINTMENT CPT CODE* Please indicate how this visit was conducted: Video Please select the video platform used during the visit: [employer] Video Room Please record the total amount of time you spent on this patient visit- Total time includes time spent on preparation, speaking with the patient, documentation, and post-visit coordination of care - This is limited to time spent ON THE DATE OF SERVICE (e.g. does not include time spent on days prior to or after the date of service) 30 - 39 minutes Vaccinations (FLU) Confirm: MEMBER HAS COMPLETED ANNUAL FLU VACCINE: MEMBER CONFIRMED Rosio Cano [facility] 2023-09-09 15:00:00 Members Preferred Language Malaysian Encounter Date: 2023-09-09 VITALS ### HISTORY OF PRESENT ILLNESS Patient is a 63 y/o male who is being followed up with [facility]'s Clinical Pharmacy team. ASSESSMENT PLAN Utilize Assessment/Plan Macros ⭐ENDOCRINE/DIABETES (A1c + Eye Exam+ Kidney Desease Screening*) Have you had an eye exam including a retinopathy exam in the last 2 years?: No Xi Metcalf [facility] 2023-08-18 05:28:00 [facility] ([facility] Cardiology Progress Note REPORT#:[id number] REPORT STATUS: Signed REPORT INITIALIZATION DATE:08/18/23 TIME: 527 PATIENT: DEVAUGHN OCAMPO UNIT #: [id number] ROOM/BED: [address] : 58 AGE: 63 SEX: M ATTEND: Benjamin Akins MD ADM AUTHOR: Benjamin Akins MD REPT SERVICE DT/TIME: 08/18/23527 * ALL edits or amendments must be made on the electronic/computer document * Subjective Chief complaint: CHF Patient reports: No: chest pain, palpitations, shortness of breath. Objective General VS/I O: 24 hour I O ending at 0700: 08/17 0700 08/16 1900 Intake Total 100 Output Total 600 Balance -500 Intake, Oral 100 Number 1 Bowel Movements Number Voids 1 Output, Urine 600 Patient 94.54 kg Weight Weight Estimated Measurement Method Vital Signs: Date Time Temp Pulse Resp B/P B/P Pulse O2 O2 Flow FiO2 Mean Ox Delivery Rate 08/17 0523 97.9 07/ 0400 80 16 138/91 95 07/03 0300 81 17 142/93 95 07/03 0201 82 13 158/87 96 07/03 0151 97.7 07/03 0100 82 10 132/85 97 07/03 0010 99 07/03 0000 102 17 129/71 91 07/02 2300 90 26 147/86 96 07/ 2200 80 17 149/70 94 07/ 2100 105 21 155/89 96 07/ 2000 91 16 143/89 94 / 1919 98.3 07/ 1900 105 18 140/82 95 PATIENT WEIGHT: Weight (lb): 208 Weight (oz): 6.8 Weight (kg): 94.540 Medications: Active Meds + DC'd Last 24 Hrs Aspirin (CHILDREN'S ASPIRIN) 81 MG DAILY PO Atorvastatin Calcium (LIPITOR) 80 MG DAILY PO Tamsulosin HCl (FLOMAX) 0.4 MG DAILY PO Cyclobenzaprine HCl (FLEXERIL) 5 MG BEDTIME PO Furosemide (LASIX) 80 MG BID PO Gabapentin (NEURONTIN) 600 MG TID PO Metoprolol Tartrate (LOPRESSOR) 50 MG BID PO Pantoprazole (PROTONIX) 40 MG BID PO Sacubitril/Valsartan (Entresto 24 MG-26 MG Tablet) 1 TAB BID PO Hydrocodone Bitart/Acetaminophen (NORCO 5/325 TABLET (C-II)) 1 TAB Q4H PRN PRN PO Cefazolin Sodium (ANCEF) 1 GM Q8H IV Sodium Chloride (SODIUM CHLORIDE 0.9%) 10 ML Albuterol Sulfate (ALBUTEROL SULFATE) 2.5 MG Q6H PRN PRN NEB Midazolam HCl (VERSED (C-IV)) 0 .STK-MED ONE .ROUTE (DC) Lidocaine (XYLOCAINE 1%) 0 .STK-MED ONE .ROUTE (DC) Fentanyl Citrate (SUBLIMAZE (C-II)) 0 .STK-MED ONE .ROUTE (DC) Midazolam HCl (VERSED (C-IV)) 0 .STK-MED ONE .ROUTE (DC) Lidocaine (XYLOCAINE 1%) 0 .STK-MED ONE .ROUTE (DC) Cefazolin Sodium (ANCEF) 0 .STK-MED ONE .ROUTE (DC) Physical Exam General appearance: alert, awake, oriented Head/Eyes: atraumatic, normocephalic ENT: moist mucosal membranes Neck: no JVD Cardiovascular: CV assessment: regular rate and rhythm Respiratory: clear to auscultation, no distress Lower extremity: LE assessment: no edema Neuro/CRIME SCENE TECHNICIAN: alert, oriented X 3, CN II-XII intact Skin: dry, intact Psychiatry: normal affect, normal judgment/insight, normal mood Results Findings/Data: Laboratory Tests 08/17 08/16 0348 1309 Chemistry Sodium (137 - 145 MMOL/L) 137 139 Potassium (3.5 - 5.1 MMOL/L) 3.9 4.0 Chloride (98 - 107 MMOL/L) 104 105 Carbon Dioxide (22 - 30 MMOL/L) 27 28 Anion Gap (14 - 24 MMOL/L) 10 L BUN (9 - 20 MG/DL) 18 19 Creatinine (0.66 - 1.25 MG/DL) 1.00 1.00 Glomerular Filtr Rate > 60 > 60 Glucose (74 - 106 MG/DL) 93 89 Calcium (8.4 - 10.2 MG/DL) 9.1 9.3 Magnesium (1.6 - 2.3 MG/DL) 1.8 Laboratory Tests 08/16 1309 Coagulation INR (0.86 - 1.14) 1.1 APTT (25.1 - 36.5 SECONDS) 35.6 PT Patient/Control Mix (9.4 - 12.5 SECONDS) 12.1 Laboratory Tests 08/17 08/16 0348 1309 Hematology WBC (3.8 - 9.8 K/MM3) 10.1 H 10.6 H RBC (3.95 - 5.67 M/MM3) 4.12 4.30 Hgb (12.4 - 16.7 G/DL) 12.8 13.5 Hct (35.9 - 49.5 %) 39.6 41.9 MCV (81.7 - 96.1 fL) 96 97 H MCH (27.6 - 33.2 pg) 31.1 31.4 MCHC (32.9 - 35.5 %) 32.3 L 32.2 L RDW (12.1 - 15.2 %) 14.6 14.7 Plt Count (129 - 368 K/MM3) 205 247 MPV (7.4 - 10.4 fl) 10.2 9.9 Neut % (Auto) (43 - 75 %) 65.6 66.9 Lymph % (Auto) (14 - 44 %) 24.0 23.3 Rush % (Auto) (4 - 13 %) 6.6 6.1 Eos % (Auto) (0 - 6 %) 2.9 2.6 Baso % (Auto) (0 - 2 %) 0.6 0.7 Neut # (Auto) (2.0 - 7.6 K/mm3) 6.64 7.08 Lymph # (Auto) (1.0 - 3.8 K/mm3) 2.43 2.46 Rush # (Auto) (0.1 - 0.8 K/mm3) 0.67 0.64 Eos # (Auto) (0.0 - 0.2 K/mm3) 0.29 H 0.27 H Baso # (Auto) (0.0 - 0.2 K/mm3) 0.06 0.07 Immature Gran % (0.0 - 2.0 %) 0.3 0.4 Nucleated RBC % (0 - 1.0 %) 0.0 0.0 Nucleated RBCs # (Man) (0.0 - 0.1 K/mm3) 0.00 0.00 Laboratory Tests 08/16 1309 Chemistry Magnesium (1.6 - 2.3 MG/DL) 1.8 Laboratory Tests 08/16 1309 Coagulation APTT (25.1 - 36.5 SECONDS) 35.6 Radiology data: Recent Impressions: RADIOLOGY - XR CHEST 1V 08/16 0295 Report Impression - Status: SIGNED Entered: 08/17/2023 1830 IMPRESSION: No active pulmonary disease. Impression By: [email or web address] - Theron Prieto MD Diagnosis, Assessment Plan Free Text DxA P Notes Free Text DxA P Notes: IMP: Nonischemic cardiomyopathy. s/p MDT TANKROOM TENDER-D Atrial lead dislodgement. PLAN: Atrial lead revision. at 1120 RPT #:[id number] [facility] 2023-08-17 19:56:00 [id number] [place] [address] PATIENT NAME: DEVAUGHN OCAMPO ADMIT DATE: 08/17/23 ACCOUNT NO: [id number] ROOM NO: Z.347 AGE: 63 REPORT TYPE: CARDIAC CATHETERIZATION REPORT SEX: M ADMITTING PHYSICIAN:Benjamin Akins MD ATTENDING PHYSICIAN:Benjamin Akins MD PROCEDURE DATE: 08/17/2023 PREPROCEDURE DIAGNOSES: 1. 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 2. [place] Heart Association class III congestive heart failure. 3. Right bundle-branch block with a QRS duration of 150 milliseconds. POSTPROCEDURE DIAGNOSES: 1. 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 2. [place] Heart Association class III congestive heart failure. 3. Right bundle-branch block with a QRS duration of 150 milliseconds. PROCEDURE: Non-thoracotomy biventricular pacing AICD. Left ventricular lead placement. SURGEON: Benjamin Akins MD CIRCULAR HEAD SAW OPERATOR: None. ANESTHESIA: Local anesthesia with 1% lidocaine and moderate sedation. DESCRIPTION OF PROCEDURE: After informed consent was obtained, explaining to the patient risks and benefits, the patient was brought to the cardiac catheterization lab in the fasting postabsorptive state. He was prepped and draped in sterile fashion. Local anesthesia was applied over the left infraclavicular area with 1% lidocaine. Access to left subclavian vein was obtained using modified Seldinger technique with a micropuncture kit. Two wires were placed in low right atrium and secured proximally. Additional 1% lidocaine was applied to the infraclavicular area. The pocket was formed with sharp and blunt dissection as well as electrocautery. The wires brought in the pocket. A 7-Irish sheath was advanced over 1 wire in left subclavian vein. The dilator was removed and wire retained. An additional wire was placed in low right atrium. Sheath was removed, flushed and reassembled. A 9-Irish sheath was advanced over 1 of the double barreled wires in the left subclavian vein. The dilator and wire removed. An active fixation right ventricular lead was advanced via the sheath under fluoroscopic guidance and secured in the right ventricular apex. Adequate pacing and sensing parameters were confirmed. The sheath was peeled away. The lead was secured in the pocket with 0 Ethibond suture around the suture sleeve. A 9-Irish sheath was advanced over a second wire with independent access to the vein. The dilator and wire removed. A PATIENT NAME: DEVAUGHN OCAMPO coronary sinus guide sheath was advanced over an AL2, which was advanced over Kristin wire, which was placed in the coronary sinus. The AL2 and the guide sheath were advanced into the coronary sinus. A balloon occlusion venogram in the coronary sinus was obtained with the balloon passed over a 0.024 J-wire. A large left lateral coronary sinus branch was identified. There was a smaller, more superior coronary sinus branch. A quadripolar over the wire lead was advanced over a Whisper wire, which was attempted to be placed into the left lateral coronary sinus branch. This was unsuccessful. A 90-degree select catheter was then utilized to select the left lateral coronary sinus branch. The wire and lead were advanced into the branch through the sheath. The wire was removed and adequate pacing sensing parameters were confirmed. The select sheath was split and peeled away. The guide sheath was split and peeled away. The 9-Irish sheath was split and peeled away. The lead was secured in pocket with 0 Ethibond suture around the suture sleeve. A 7-Irish sheath was advanced over the remaining wire in left subclavian vein. The dilator and wire removed. An active fixation of right atrial lead was advanced via the sheath under fluoroscopic guidance and secured in the right atrial appendage. Adequate pacing and sensing parameters were confirmed. The sheath was peeled away. The lead was secured in the pocket with 0 Ethibond suture around the suture sleeve. It was noted that the left atrial appendage appeared to have very little trabeculate and 2 different J wires were utilized to place the lead in a secure position with adequate pacing and sensing. The pocket was flushed with antibiotic-containing solution. The generator was connected to the leads. Generator was placed in the pocket and secured in the pocket with 0 Ethibond suture. Powdered Surgicel was applied to the pocket at the lead insertion sites. The pocket was closed in 3 layers using 2-0 Vicryl for subcutaneous layers and 4-0 Vicryl for the skin. Steri-Strips were applied on the wound externally. The patient tolerated the procedure well with no complications. IMPLANT DATA: Pulse generator Medtronic model TPA2QQ, serial #[id number]. Right atrial lead, Medtronic model 5076-6-52, length 52 cm, serial #[id number]. Right ventricular lead, Medtronic model 7692A43, serial #[id number]. Left ventricular lead, Medtronic model [id number], length 88 cm, serial #[id number]. STIMULATION THRESHOLD DATA: Right atrium 5.1 millivolts, 399 ohms, threshold 0.75 volts at 0.4 millisecond. Right ventricle 7.1 millivolt R waves, impedance 475 ohms, HVB impedance 69 ohms, threshold 0.5 volts at 0.4 millisecond. Left ventricular lead 988 ohms, threshold 2.75 volts at 1 millisecond. CONCLUSION: Successful non-thoracotomy biventricular pacing AICD. ESTIMATED BLOOD LOSS: 50 mL COMPLICATION: No complications. Dictated By: Benjamin Akins MD Date Dictated: 08/17/2023 19:56:00 PATIENT NAME: TERRENCEDEVAUGHN BEARD Date Transcribed: 08/17/2023 21:13:37 GSP/REQ Receipt ID: [id number] CC: Roxie Oscar MD (F) Authenticated and Edited by Benjamin Akins MD On 08/21/23 1:12:18 PM at 0114 PATIENT NAME: TERRENCEDEVAUGHN [facility] 2023-06-19 09:11:00 [id number] [place] [address] PATIENT NAME: DEVAUGHN ESPINOSA ADMIT DATE: 06/19/23 ACCOUNT NO: [id number] ROOM NO: AGE: 62 REPORT TYPE: OPERATIVE REPORT SEX: M ADMITTING PHYSICIAN: ATTENDING PHYSICIAN: Roxie Oscar MD Cardiology OPERATION DATE: 06/19/2023 RAILROAD DETECTIVE: Roxie Oscar MD. PREOPERATIVE DIAGNOSIS: POSTOPERATIVE DIAGNOSIS: TITLE OF PROCEDURE: Left heart catheterization. INDICATION FOR THE PROCEDURE: Dyspnea, cardiomyopathy, congestive heart failure, class III. ESTIMATED BLOOD LOSS: Minimal. COMPLICATIONS: None. CONTRAST: 30 mL ANESTHESIA: Conscious sedation with Versed and fentanyl and 1% lidocaine with local anesthesia. FINAL DIAGNOSES: Dilated cardiomyopathy, ejection fraction 20%, left ventricular end-diastolic pressure of 20, nonobstructive coronary artery disease. RECOMMENDATION: AICD placement. PROCEDURE IN DETAIL: After informed consent, the patient was brought to the cardiac catheterization lab in a stable fasting and nonsedated state. He was prepped and draped in the usual sterile fashion. After conscious sedation, 1% lidocaine was administered to the right common femoral artery area for local anesthesia. A 6-Irish sheath was placed in the right common femoral artery using standard techniques and fluoroscopy. After heparinization, left coronary angiogram showed luminal irregularities in the left main and the circumflex has a large bifurcating ramus intermedius. The LAD has a 20% mid plaquing. Right coronary artery showed a dominant vessel, but gives only the PDA with 20% proximal plaquing. Left ventricular angiogram showed an ejection fraction around 20%. Left ventricular end-diastolic pressure of 20. No aortic valve gradient and there is global hypokinesis. The right groin was sealed using Angio-Seal. There were no complications. The patient tolerated the procedure well, transferred to the holding area for observation to be discharged in few PATIENT NAME: DEVAUGHN ESPINOSA hours on medical therapy and risk factor modification and referral for AICD. Dictated By: Roxie Oscar MD Date Dictated: 06/19/2023 09:11:21 Date Transcribed: 06/19/2023 10:16:21 SFD/DEDRICK Receipt ID: [id number] Authenticated by Roxie Oscar MD On 06/19/2023 01:05:34 PM at 0105 PATIENT NAME: DEVAUGHN ESPINOSA [facility] 2023-06-19 06:13:00 [id number] [address] PATIENT NAME: DEVAUGHN ESPINOSA ADMIT DATE: 06/19/23 ACCOUNT NO: [id number] ROOM NO: AGE: 62 REPORT TYPE: eELECTROCARDIOGRAM SEX: M ADMITTING PHYSICIAN: ATTENDING PHYSICIAN: Roxie Oscar MD Order: [id number] Test Reason : PREOP Test Date/Time Stamp: WedJun 19 2023 06:13:22 Blood Pressure : / mmHG Vent. Rate : 073 BPM Atrial Rate : 073 BPM P-R Int : 206 ms QRS Dur : 144 ms QT Int : 424 ms P-R-T Axes : 054 -33 -08 degrees QTc Int : 467 ms Normal sinus rhythm Left axis deviation Right bundle branch block Abnormal ECG No previous ECGs available Confirmed by ROXIE OSCAR ([id number]) on 06/19/2023 8:41:59 AM Referred By: Roxie Oscar Confirmed by:ROXIE OSCAR at 0841 PATIENT NAME: DEVAUGHN ESPINOSA [facility] 2023-06-18 07:23:00 [id number] [place] [address] PATIENT NAME: DEVAUGHN ESPINOSA ADMIT DATE: ACCOUNT NO: [id number] ROOM NO: AGE: 62 REPORT TYPE: PREOP HP REPORT SEX: M ADMITTING PHYSICIAN: ATTENDING PHYSICIAN: Roixe Oscar MD Cardiology PATIENT NAME: DEVAUGHN ESPINOSA ADMIT DATE:06/19/2023 ADMISSION DATE: 06/19/2023 11:00:00 RAILROAD DETECTIVE: Roxie sOcar MD REASON FOR ADMISSION: Angina, abnormal nuclear stress test, cardiomyopathy for cardiac catheterization and possible revascularization. HISTORY OF PRESENT ILLNESS: Devaughn is a 62-year-old patient with no previous documented cardiac history and no previous cardiac workup that is available to me. The patient started seeing me on 05/21/2023. He had a hospitalization at [facility] on 05/12/2023 where an echocardiogram was done showing ejection fraction around 30-35% with mild mitral regurgitation and four-chamber enlargement. The echo was technically difficult. He came and saw me in the office. He had a carotid Doppler with less than 35% plaquing. He had a chemical nuclear stress test. Ejection fraction was 21%. Large inferoposterior scar, picture of cardiomyopathy with no evidence of ischemia. Monitoring showed three short supraventricular tachycardia runs and a baseline of right bundle branch block and first-degree AV block. The patient's symptoms are mainly chest pains consistent with angina, dyspnea, palpitations, dizziness. The patient is also in need of clearance for GI workup. Given all the above and the findings on the nuclear stress test, the patient has been started on medical therapy, but he is here for left heart catheterization to assess his coronaries for revascularization and if the catheterization is negative, he will be referred for defibrillator therapy. PAST MEDICAL HISTORY: Remarkable for hypertension, hyperlipidemia, cardiomegaly, atherosclerosis, CVA in the past, COPD, chronic renal insufficiency, asthma, bipolar disorder, anxiety, depression, prediabetes, hernias, benign prostatic hyperplasia, obesity, drug abuse and vitamin B12 and D deficiency. PAST SURGICAL HISTORY: He has had right shoulder repair, right ear surgery, right elbow surgery and back surgery. ALLERGIES: NO KNOWN DRUG ALLERGIES. MEDICATIONS: He takes cetirizine 10 mg daily, aspirin 81 mg daily, clopidogrel 75 mg daily, atorvastatin 80 mg daily, furosemide 40 mg daily, hydroxyzine 50 mg three times a day, metoprolol 50 mg twice a day, nasal spray, magnesium, potassium, vitamins, tamsulosin 0.4 mg daily, Entresto 24/26 mg twice daily and Jardiance 10 mg daily. PATIENT NAME: DEVAUGHN ESPINOSA SOCIAL HISTORY: The patient is an active smoker. He uses alcohol socially. He had a history of heroin addiction in the past. None recently. Accompanied by his spouse. FAMILY HISTORY: Negative for premature atherosclerosis. One of the patient's sons was diagnosed with enlarged heart and he passed apparently due to that. He passed after a hernia repair surgery. It is unknown what his details of the condition was. REVIEW OF SYSTEMS: Remarkable for the above enclosed, remarkable for his fatigue, decreased hearing, diabetes related problems. He has been diagnosed with emphysema and COPD before and he has related symptoms. He has had problems with hernias, enlarged prostate, back problems, depression, and anxiety. The rest of the review of systems is enclosed. The patient was told he has had a stroke about 34 years ago when he was 28 years old, details are not available. No residual. PHYSICAL EXAMINATION: GENERAL: Reveals a pleasant 62-year-old patient in no acute distress. VITAL SIGNS: Blood pressure 108/66, pulse 96 and regular, respiratory rate 18 and unlabored, temperature afebrile. HEENT: Head atraumatic, normocephalic. Eyes and ENT examination within normal for age. NECK: Supple, no jugular venous distention, bruits or lymphadenopathy. Normal upstroke. LUNGS: Decreased air entry, otherwise clear and resonant. HEART: Regular rate and rhythm, II/ systolic murmur at the left lower sternal border. No gallops. The heart is enlarged, has irregularities on it with PACs. ABDOMEN: Obese. No tenderness, no organomegaly, no masses or bruits. He does have ventral hernia present, umbilical hernia present and right and left inguinal hernias. EXTREMITIES: 1+ edema, 2+ distal pulses. No cyanosis or clubbing. NEUROLOGIC: Alert and oriented x3. Examination appears to be nonfocal. LABORATORY DATA: Pending. Noninvasive cardiovascular workup enclosed. IMPRESSION: This is a 62-year-old patient with congestive heart failure, finding of dilated cardiomyopathy, the congestive heart failure is chronic systolic. He does have multiple cardiovascular risk factors. His nuclear stress test is very abnormal. He may have severe coronary artery disease. He qualifies for defibrillator therapy unless revascularization improves his ejection fraction. The patient is here for left heart catheterization to assess his coronaries and to assess for possible revascularization. PLAN: The recommendation is to proceed with above-mentioned procedures. The risks and benefits of the planned procedures were discussed in detail with the patient and available family members and he is willing to proceed. Rest as per orders. Dictated By: Roxie Oscar MD Date Dictated: 06/18/2023 07:23:30 Date Transcribed: 06/18/2023 09:17:14 PATIENT NAME: DEVAUGHN ESPINOSA [facility] Receipt ID: [id number] Authenticated and Edited by Roxie Oscar MD On 06/18/23 4:59:43 PM at 0501 PATIENT NAME: DEVAUGHN ESPINOSA [facility]
[2024-06-03] MEDS ORDERED: ONDANSETRON 4 MG/2 ML VIAL ONE (11:40)
[2024-06-03] MEDS ORDERED: MORPHINE 4 MG/ML SYR ONE (11:40)
[2024-06-03 11:47] LABS: Absolute Eosinophils 0.1 K/uL (0-0.5); Absolute Monocytes 0.5 K/uL (0.1-1.3); Absolute Neutrophil 5.6 K/uL (1.8-8.0); Basophils % 0.6 % (0-1.3); Eosinophils % 1.1 % (0-4.4); Hematocrit 39.9 % (39.6-49.0); Hemoglobin 13.6 g/dL (13.6-17.9); Lymphocytes % 24.7 % (15.3-44.8); MCH 31.7 pg (27.0-35.0); MCHC 33.9 g/dL (32.0-36.0); MCV 93.3 fL (80-100); MPV 7.6 fL (7.6-11.3); Monocytes % 5.7 % (3.3-12.3); Neutrophils % 67.9 % (41.7-73.7); Platelets 324 thou/uL (152-406); RBC Red Blood Cell Count 4.28 M/uL (4.33-5.43); Red Cell Distribution Width 14.5 % (12.1-15.2)
[2024-06-03 12:08] LABS: Albumin 3.2 g/dL (3.4-5.0); Albumin/Globulin Ratio 0.8 (1.1-1.8); Anion Gap 9.8 mEq/L (5.0-15.0); Bilirubin Direct 0.2 mg/dL (0-0.2); Bilirubin Indirect, Calculated 0.3 mg/dL (0.2-0.8); Bilirubin Total 0.5 mg/dL (0.2-1.0); Globulin 3.9 g/dL (2.3-3.5); Magnesium 1.7 mg/dL (1.6-2.4); Potassium 3.8 mEq/L (3.5-5.1); Protein, Total 7.1 g/dL (6.4-8.2); Troponin High Sensitivity 9.5 pg/mL (<58.9)
--- NOTE | 2024-06-03 12:24 | RAD REPORT ---
EXAM: Chest Single View HISTORY: 63 years Male CHEST PAIN COMPARISON: 03/19/2020 FINDINGS: LUNGS/PLEURA: The lungs are clear. No pleural effusions or pneumothorax. No pulmonary edema. CARDIAC/MEDIASTINUM: The cardiac silhouette is within normal limits. UPPER ABDOMEN: No significant abnormality. BONES: No acute abnormality. LINES/TUBES/OTHER: Pacemaker/AICD. IMPRESSION: No evidence of acute cardiopulmonary disease. No significant change from prior.
--- NOTE | 2024-06-03 12:55 | RAD REPORT ---
EXAMINATION: Head Brain Wo Cont CLINICAL INDICATION: Male, 63 years old.fall in lobby TECHNIQUE: Axial CT images from the skull base to the vertex without intravenous contrast. Coronal an d sagittal reformatted images were created from the data set. One or more of the following dose reduction techniques were used: Automated exposure control, adjustment of the mA and/or kV according to patient size, and/or iterative reconstruction. Unless otherwise specified, incidental findings do not require dedicated imaging follow-up. [id number]. COMPARISON: No prior exam. FINDINGS: INTRACRANIAL: No acute intracranial hemorrhage. No hydrocephalus. No mass effect or midline shift. No significant white matter disease. VASCULATURE: No visualized abnormalities in the arteries or dural venous sinuses. SCALP/SKULL: No calvarial fracture identified. No acute soft tissue abnormality. SINUSES: The visualized paranasal sinuses are mostly clear. Mastoid fluid bilaterally which is chroni c, IMPRESSION: No acute intracranial abnormality.
--- NOTE | 2024-06-03 13:00 | RAD REPORT ---
EXAMINATION: Abdomen Pelvis W Contrast CLINICAL INDICATION: Male, 63 years old.ABD PAIN TECHNIQUE: CT abdomen and pelvis was performed, after the administration of IV contrast[facility] Axial, sagittal and coronal reconstructions were obtained. One or more of the following dose reduction techniques were used: Automated exposure control, adjustment of the mA and/o r kV according to patient size, and/or iterative reconstruction. Unless otherwise specified, incidental findings do not require dedicated imaging follow-up. [id number]. COMPARISON: 04/20/2021 FINDINGS: LOWER CHEST: No acute process identified.Small pericardial effusion Pacemaker leads. UPPER GI: Diffuse gastric wall thickening. LIVER: Cirrhotic liver morphology. No focal mass. GALLBLADDER/BILE DUCTS: Cholecystectomy. Moderate extrahepatic biliary ductal dilatation. This could be secondary to the post-cholecystectomy state. Recommend correlation with LFT's. If abnormal, consider MRCP for further evaluation. ? PANCREAS: No mass, ductal dilation, or kaila-pancreatic fluid. SPLEEN: Unremarkable. ADRENALS: No adrenal masses. KIDNEYS AND URETERS: No hydronephrosis.No suspicious renal mass.Nonobstructing renal calculi.No urete ral calculi. ABDOMINAL AORTA AND OTHER VESSELS: Moderate atherosclerotic changes without aortic aneurysm. PERITONEUM: No abnormal free fluid. No free air. LYMPH NODES: Reactive size upper abdominal lymph nodes likely due to underlying cirrhosis. ABDOMINAL WALL: Fat containing inguinal hernias. SMALL BOWEL/COLON: Diffuse colonic wall thickening, though most notably at the sigmoid colon. Diverti culosis. No focal inflammatory changes.Normal appendix. Moderate diverticulosis without diverticulitis. Low formed stool burden. URINARY BLADDER: Underdistended but grossly unremarkable. REPRODUCTIVE ORGANS: No pathologic process. MUSCULOSKELETAL: Multilevel degenerative changes in the spine. No acute fracture. Grade 1 anterolisth esis of L4 on L5. ADDITIONAL FINDINGS: None. IMPRESSION: No evidence of significant acute trauma. Diffuse gastric wall and colonic wall thickening which can be secondary to portal hypertension versus gastritis/colitis.
--- NOTE | 2024-06-03 13:42 | EDPHYS ---
Physician Documentation [facility] Name: Eliu Schuler Age: 63 yrs Sex: Male : 1960 Arrival Date: 06/03/2024 Time: 10:49 Bed 3 Private MD: ED Physician Christophe Wolfe HPI: 06/03 11:44 This 63 yrs old Male presents to ER via Ambulatory with complaints of Vomiting, sb4 Abdominal Pain. 11:45 constipation, nausea, vomiting, and abdominal pain x 2 weeks. was seen at [facility] 2 sb4 days ago, had a full workup done, no cause was found- symptoms have persisted. Historical: - Allergies: 11:23 No Known Drug Allergies; ll1 - PMHx: 11:23 CVA; COPD; Hypertension; GERD; Bipolar disorder; ll1 - PSHx: 11:23 Cholecystectomy; R elbow; R shoulder; ll1 - Immunization history:: Adult Immunizations up to date. - Infectious Disease History:: Denies. - Social history:: Smoking status: Patient reports the use of cigarette tobacco products, smokes one pack cigarettes per day. ROS: 11:46 Constitutional: Negative for fever, chills, and weight loss, sb4 11:46 Abdomen/GI: Positive for abdominal pain, nausea and vomiting, constipation, 11:46 All other systems are negative, Exam: 11:46 Head/Face: Normocephalic, atraumatic. Eyes: Extra-ocular motions intact. Periorbital sb4 areas with no swelling, redness, or edema. ENT: Mucous membranes moist. Cardiovascular: Regular rate and rhythm with a normal S1 and S2. Respiratory: No increased work of breathing, no retractions or nasal flaring. Abdomen/GI: Soft, non-tender, no distension. Skin: Warm, dry with normal turgor. Normal color with no rashes, no lesions, and no evidence of cellulitis. 11:46 Constitutional: The patient appears alert, awake, in obvious pain, uncomfortable, Vital Signs: 11:23 BP 153 / 98; Pulse 72; Resp 18; ll1 11:40 BP 117 / 92; Pulse 95; Temp 97.8; Pulse Ox 100% on R/A; ll1 12:07 BP 109 / 78; Pulse 85; Resp 20; Pulse Ox 100% on R/A; ll1 12:23 Weight 79.38 kg; Height 5 ft. 8 in. ; Pain 7/10; ll1 13:30 BP 121 / 81; Pulse 81; Resp 19; Pulse Ox 100% ; ll1 12:23 Body Mass Index 26.61 (79.38 kg, 172.72 cm) ll1 12:23 Pain Scale: Adult ll1 MDM: 10:58 Medical Screening Exam initiated sb4 13:41 Data reviewed: vital signs, nurses notes, lab test result(s), radiologic studies, and sb4 as a result, I will discharge patient. Care significantly affected by the following chronic conditions: Hypertension. Counseling: I had a detailed discussion with the patient and/or guardian regarding the historical points, exam findings, and any diagnostic results supporting the discharge/admit diagnosis, lab results, radiology results, the need for outpatient follow up, for definitive care, to return to the emergency department if symptoms worsen or persist or if there are any questions or concerns that arise at home. 06/03 11:24 Order name: Basic Metabolic Panel; Complete Time: 12:12 sb4 06/03 11:24 Order name: CBC with Diff; Complete Time: 11:52 sb4 06/03 11:24 Order name: LFT's; Complete Time: 12:12 sb4 06/03 11:24 Order name: Magnesium; Complete Time: 12:12 sb4 06/03 11:24 Order name: Troponin HS; Complete Time: 12:12 sb4 06/03 11:24 Order name: Lipase; Complete Time: 12:12 sb4 06/03 11:24 Order name: XRAY Chest (1 view); Complete Time: 12:28 sb4 06/03 11:24 Order name: CT Abd/Pelvis - IV Contrast Only; Complete Time: 13:02 sb4 06/03 12:39 Order name: Head Brain Wo Cont; Complete Time: 12:56 EDMS 06/03 11:24 Order name: EKG; Complete Time: 11:25 sb4 06/03 11:24 Order name: Cardiac monitoring; Complete Time: 11:26 sb4 06/03 11:24 Order name: EKG - Nurse/Tech; Complete Time: 11:26 sb4 06/03 11:24 Order name: IV Saline Lock; Complete Time: 11:39 sb4 06/03 11:24 Order name: Labs collected and sent; Complete Time: 11:39 sb4 06/03 11:24 Order name: O2 Per Protocol; Complete Time: : sb4 06/03 11:24 Order name: O2 Sat Monitoring; Complete Time: : sb4 EC:47 Rate is 83 beats/min. Rhythm is irregular. Left axis deviation noted. TN interval is sb4 normal at 136 msec. QRS interval is normal at 120 msec. QT interval is normal at 422 msec. No Q waves. T waves are Normal. No ST changes noted. Interpreted by me. Reviewed by me. Administered Medications: 11:48 Drug: morphine IVP or IV 4 mg IVP once over 4 mins Route: IVP; Infused Over: 4 mins; hb Site: right antecubital; 12:25 Follow up: Response: No adverse reaction; Pain is decreased; RASS: Alert and Calm (0) ll1 11:48 Drug: Ondansetron IVP 4 mg IVP once; over 2 minutes Route: IVP; Site: right antecubital;hb 12:25 Follow up: Response: No adverse reaction; Nausea is decreased ll1 13:58 Drug: Ciprofloxacin PO 500 mg PO once Route: PO; ld1 13:58 Follow up: Response: No adverse reaction ll1 14:45 Follow up: Response: No adverse reaction ll1 13:58 Drug: metroNIDAZOLE PO 500 mg PO once Route: PO; ld1 13:58 Follow up: Response: No adverse reaction ll1 14:45 Follow up: Response: No adverse reaction ll1 Disposition: 06/04 13:01 Co-signature as Attending Physician, Christophe Wolfe MD I agree with the assessment and jerry plan of care. Disposition Summary: 06/03/24 13:41 Discharge Ordered Notes: Location: Home sb4 Problem: an ongoing problem sb4 Symptoms: have improved sb4 Condition: Stable sb4 Diagnosis - Infectious gastroenteritis and colitis, unspecified sb4 Followup: sb4 - With: Emergency Department - When: As needed - Reason: Trouble breathing, Worsening of condition Discharge Instructions: - Discharge Summary Sheet sb4 - Colitis sb4 Forms: - Antibiotic Education sb4 - Prescription Opioid Use sb4 - Patient Portal Instructions sb4 - Leadership Thank You Letter sb4 Prescriptions: - Flagyl 500 mg Oral Tablet - take 1 tablet ORAL route every 12 hours for 7 days; 14 tablet; Refills: 0, sb4 Product Selection Permitted - Zofran 4 mg Oral Tablet - take 1 tablet ORAL route every 12 hours As needed; 20 tablet; Refills: 0, sb4 Product Selection Permitted - Cipro 500 mg Oral Tablet - take 1 tablet ORAL route every 12 hours for 7 days; 14 tablet; Refills: 0, sb4 Product Selection Permitted - Tramadol 50 mg Oral Tablet - take 1 tablet ORAL route every 8 hours as needed; 12 tablet; Refills: 0, sb4 Product Selection Permitted Signatures: Dispatcher [employer] EDMS Christophe Wolfe MD MD cha Baxter, Heather, RN RN Luis Enrique Lopez RN RN ll1 Wendy Giron RN RN ld1 Kandy Salamanca PA-C PA-C sb4 Corrections: (The following items were deleted from the chart) 06/03 11:25 11:25 Abdomen Pelvis W Con+CT.RAD.BRZ ordered. EDWI EDMS
--- NOTE | 2024-06-03 13:42 | ER ---
Nurse's Notes [facility] Name: Eliu Schuler Age: 63 yrs Sex: Male : 1960 Arrival Date: 06/03/2024 Time: 10:49 Bed 3 Private MD: Diagnosis: Infectious gastroenteritis and colitis, unspecified Presentation: 06/03 11:23 Chief complaint: Patient states: Abdominal pain with N/V for 2 weeks. Syncopal event in ll1 lobby, fell from sitting in chair. Coronavirus screen: Client denies travel out of the [place] in the last 14 days. Ebola Screen: Patient denies travel to an Ebola-affected area in the 21 days before illness onset. Initial Sepsis Screen: Does the patient meet any 2 criteria? No. Patient's initial sepsis screen is negative. Does the patient have a suspected source of infection? No. Patient's initial sepsis screen is negative. Risk Assessment: Do you want to hurt yourself or someone else? Patient reports no desire to harm self or others. Onset of symptoms was May 20, 2024. 11:23 Method Of Arrival: Ambulatory [facility] 11:23 Acuity: ROMEL 2 1 Historical: - Allergies: 11:23 No Known Drug Allergies; ll1 - PMHx: 11:23 CVA; COPD; Hypertension; GERD; Bipolar disorder; ll1 - PSHx: 11:23 Cholecystectomy; R elbow; R shoulder; ll1 - Immunization history:: Adult Immunizations up to date. - Infectious Disease History:: Denies. - Social history:: Smoking status: Patient reports the use of cigarette tobacco products, smokes one pack cigarettes per day. Screenin:08 [facility] ED Fall Risk Assessment (Adult) History of falling in the last 3 months, [facility] including since admission Yes- physiologic fall (2 pts) Confusion or Disorientation No (0 pts) Intoxicated or Sedated No (0 pts) Impaired Gait Yes (1 pt) Mobility Assist Device Used Yes (1 pt) Altered Elimination No (0 pt) Score/Fall Risk Level 3 or more points = High Risk Maintained a safe environment, Hourly rounding (assess needs \T\ fall precautionary measures) done, Used ambulatory aids as needed (educated on \T\ assisted with), Utilized family, sitter, or virtual jig worker as indicated. Abuse screen: Denies threats or abuse. Nutritional screening: No deficits noted. Tuberculosis screening: No symptoms or risk factors identified. Assessment: 11:25 General: Appears distressed, uncomfortable, ill, Behavior is cooperative, appropriate ll1 for age, listless, Reports feeling ill for fatigue for. Pain: Complains of pain in abdomen. Neuro: Reports a syncopal episode. GI: Reports lower abdominal pain, upper abdominal pain, constipation, cramping, nausea, vomiting. 12:25 Reassessment: No changes from previously documented assessment. Patient and/or family ll1 updated on plan of care and expected duration. Pain level reassessed. Patient is alert, oriented x 3, equal unlabored respirations, skin warm/dry/pink. 13:55 Reassessment: No changes from previously documented assessment. Patient and/or family ll1 updated on plan of care and expected duration. Pain level reassessed. Patient is alert, oriented x 3, equal unlabored respirations, skin warm/dry/pink. Patient states feeling better. GI: Abdomen is flat. Vital Signs: 11:23 BP 153 / 98; Pulse 72; Resp 18; ll1 11:40 BP 117 / 92; Pulse 95; Temp 97.8; Pulse Ox 100% on R/A; ll1 12:07 BP 109 / 78; Pulse 85; Resp 20; Pulse Ox 100% on R/A; ll1 12:23 Weight 79.38 kg; Height 5 ft. 8 in. ; Pain 7/10; ll1 13:30 BP 121 / 81; Pulse 81; Resp 19; Pulse Ox 100% ; ll1 12:23 Body Mass Index 26.61 (79.38 kg, 172.72 cm) ll1 12:23 Pain Scale: Adult ll1 ED Course: 10:55 Patient arrived in ED. im 10:57 Kandy Salamanca PA-C is PHCP. sb4 10:57 Christophe Wolfe MD is Attending Physician. sb4 11:00 Patient has correct armband on for positive identification. Bed in low position. ll1 Provided Education on: ER procedures and process. 11:25 Triage completed. ll1 11:25 Arm band placed on Patient placed in an exam room, on a stretcher. ll1 11:26 Luis Enrique Lopez RN is Primary Nurse. ll1 11:38 Warm blanket given. am7 11:38 Inserted saline lock: 20 gauge in right antecubital area, using aseptic technique. am7 Blood collected. Flushed with 10 mL NS. 12:19 XRAY Chest (1 view) In Process Unspecified. EDMS 12:45 Head Brain Wo Cont In Process Unspecified. EDMS 12:50 CT Abd/Pelvis - IV Contrast Only In Process Unspecified. EDMS 13:58 No provider procedures requiring assistance completed. IV discontinued, intact, ll1 bleeding controlled, No redness/swelling at site. Pressure dressing applied. Administered Medications: 11:48 Drug: morphine IVP or IV 4 mg IVP once over 4 mins Route: IVP; Infused Over: 4 mins; hb Site: right antecubital; 12:25 Follow up: Response: No adverse reaction; Pain is decreased; RASS: Alert and Calm (0) ll1 11:48 Drug: Ondansetron IVP 4 mg IVP once; over 2 minutes Route: IVP; Site: right antecubital;hb 12:25 Follow up: Response: No adverse reaction; Nausea is decreased ll1 13:58 Drug: Ciprofloxacin PO 500 mg PO once Route: PO; ld1 13:58 Follow up: Response: No adverse reaction ll1 14:45 Follow up: Response: No adverse reaction ll1 13:58 Drug: metroNIDAZOLE PO 500 mg PO once Route: PO; ld1 13:58 Follow up: Response: No adverse reaction ll1 14:45 Follow up: Response: No adverse reaction ll1 Medication: 12:09 VIS not applicable for this client. ll1 Outcome: 13:41 Discharge ordered by sb4 13:59 Patient left the ED. ld1 13:59 Discharged to home via wheelchair, ll1 13:59 Condition: stable 13:59 Discharge instructions given to patient, family, Instructed on discharge instructions, follow up and referral plans. no drinking with medication, no driving heavy equipment, medication usage, Demonstrated understanding of instructions, follow-up care, medications, Prescriptions given X 4, Signatures: Dispatcher [employer] EDMS Leslye Gray RN RN hb Lewis, Lynsay, RN RN ll1 Wendy Giron RN RN ld1 Kandy Salamanca, PA-C PARaineC sb4 Kellie De La Cruz Abigail am7 Corrections: (The following items were deleted from the chart) 14:46 11:40 BP 117 / 92; Pulse 95bpm; Pulse Ox 100% RA; ll1 ll1
[2024-06-03] MEDS ORDERED: metroNIDAZOLE 500 MG TABLET ONE (13:47)
[2024-06-03] MEDS ORDERED: CIPROFLOXACIN HCL 500 MG TAB ONE (13:47)
[2024-06-03 14:15] VITALS: O2SAT 100
[2024-06-03 14:20] VITALS: BP 109/78
== END 2024-06-03 13:59 | disposition home or self-care (01) ==
LOC: ER 10:49
DX: A09 Infectious gastroenteritis and colitis, unspecified (principal); R11.2 Nausea with vomiting, unspecified; F17.210 Nicotine dependence, cigarettes, uncomplicated
CPT/HCPCS: 93005; 85025; 80048; 36415; 83735; 80076; 84484; 83690; 70450; 74177; 71045; Q9967; J2405; 96374; 96375; 99284